=== PATIENT | female | born 1960 | race Caucasian/White ===

== ENCOUNTER 2023-07-02 10:31 | Emergency (ER) | payer BC, SELFPAY ==
--- NOTE | ~2023-07-02 | XR_ITS ---
XR forearm RT 2V DATE: 07/02/2023 11:13 INDICATION: Fall. Wrist deformity. TECHNIQUE: AP and crosstable lateral views COMPARISON: None FINDINGS: There is a comminuted intra-articular fracture of the distal radius with dorsal inclination of the distal radial articular surface. There is a laterally displaced ulnar styloid process fracture. Alignment is preserved at the elbow and wrist joints. IMPRESSION: Comminuted intra-articular fracture of distal radius and ulnar styloid process fracture Reviewed, dictated and finalized at location A. IFIED EXECUTIVE CHEF IMPRESSION: Comminuted intra-articular fracture of distal radius and ulnar styl oid process fracture
[2023-07-02 11:13] VITALS: BP 119/75; PULSE 77; RESP 16; TEMP 36.4; O2SAT 100
--- NOTE | 2023-07-02 11:37 | ED.GENADULT ---
HPI - General Adult General Chief complaint: Extremity Injury, Upper Stated complaint: Fall Time Seen by Provider: 07/02/23 11:37 Source: patient, RN notes reviewed and old records reviewed Mode of arrival: ambulatory Limitations: no limitations History of Present Illness HPI narrative: 63-year-old female presents to the [facility] with complaints of a fall. Has right wrist pain. Patient states that she was walking and slipped on 1 step landing on her right wrist. Swelling and mild bruising noted. Patient does move all 5 fingers with sensation intact in capillary refill under 2 seconds. Onset (ago): hour(s) Related Data Home Medications Medication Instructions Recorded Confirmed apixaban 5 mg tablet (Eliquis) mg 07/02/23 blood sugar diagnostic (Contour 07/02/23 07/02/23 Next Test Strips) budesonide-formoterol HFA 160 inhalation 07/02/23 mcg-4.5 mcg/actuation aerosol inhaler (Symbicort) diltiazem HCl 360 mg capsule,24 mg PO 07/02/23 hr,extended release furosemide 20 mg tablet mg 07/02/23 glucagon 3 mg/actuation nasal mg intranasal 07/02/23 spray (Baqsimi) insulin aspart U-100 100 unit/mL 07/02/23 subcutaneous solution montelukast 10 mg tablet mg 07/02/23 ondansetron 4 mg disintegrating mg 07/02/23 tablet rosuvastatin 10 mg tablet mg 07/02/23 Allergies Allergy/AdvReac Type Severity Reaction Status Date / Time No Known Allergies Allergy Verified 07/02/23 11:15 Review of Systems Review of Systems: All systems reviewed & are unremarkable except as noted in HPI and below Constitutional: Constitutional: Reports no additional constitutional complaints Eyes: Eyes: Reports no additional eye complaints ENT: Reports system reviewed and no additional complaints, except as documented Cardiovascular: Cardiovascular: Reports no additional cardiovascular complaints, Denies chest pain and Denies dyspnea Respiratory: Respiratory: Reports no additional respiratory complaints, Denies chest congestion, Denies cough and Denies dyspnea Gastrointestinal: Gastrointestinal: Reports no additional gastrointestinal complaints, Denies abdominal pain, Denies nausea and Denies vomiting Musculoskeletal: Musculoskeletal: Reports as per HPI, Reports arthralgias, Reports joint swelling and Reports limited range of motion Integumentary/Breasts: Skin/Breast: Reports system reviewed and no additional complaints, except as docu Neurologic: Reports system reviewed and no additional complaints, except as documented Psychiatric: Psychiatric: Reports no additional psychiatric complaints Allergic/Immunologic: Allergic/Immunologic: Reports no additional allergic/immunologic complaints PMFSH Comments At the time of my signature, I reviewed and agree with the nursing past medical, surgical, social, and family history. There is no relevant family history pertinent to the patient complaint. Exam Const: General: cooperative, healthy appearing, comfortable, no acute distress, well developed, alert and well nourished Nutritional Appearance: well nourished Orientation/consciousness: patient oriented x3 Limitations: no limitations HENMT: Head: normal to inspection Ears: hearing grossly normal bilaterally and external ears normal Face/Nose/Sinus: Normal external nose present, Normal nares present, Normal nasal mucous membranes and turbinates present, normal facial exam and face symmetric Face and sinus: normal facial exam and face symmetric Eyes: General: appearance normal, both eyes and all related structures Alignment and Position: alignment normal Periorbital: periorbital findings normal Pupils: Equal, round and reactive pupils present EOM: EOMs intact bilaterally Neck: Neck: normal visual inspection, full ROM, no lymphadenopathy and no meningeal signs Chest: Chest palpation & inspection: normal inspection of the chest Resp: Effort & Inspection: normal respiratory effort and able to speak in complete sentences
== END 2023-07-02 12:23 | disposition home or self-care (01) ==
PROVIDERS: Emergency Provider Nurse Practitioner
DX: S52.501A Unspecified fracture of the lower end of right radius, initial encounter for closed fracture (principal); S52.611A Displaced fracture of right ulna styloid process, initial encounter for closed fracture; W10.9XXA Fall (on) (from) unspecified stairs and steps, initial encounter; I48.91 Unspecified atrial fibrillation; J45.909 Unspecified asthma, uncomplicated; M81.0 Age-related osteoporosis without current pathological fracture; E11.9 Type 2 diabetes mellitus without complications
CPT/HCPCS: 29125; 73090; 99204; A4565; G0463

== ENCOUNTER 2023-07-14 01:27 | Day surgery (SDC) | payer BC, SELFPAY ==
[2023-07-08 14:42] VITALS: BMI 30.2
--- NOTE | 2023-07-08 14:54 | PC.NURSE ---
Addendum entered by Sarah Peralta RN 07/08/23 15:23: PT TO FOLLOW INSTRUCTIONS FROM DR. CARMONA REGARDING ELIQUIS. Original Note: Report to the Outpatient Waiting Room, entrance under the green pavilion located off [facility], at time 1:00 on date 07/14/23. Planned Procedure Time: 3:00. Time changes happen often and if your time is changed the preop area will call you the afternoon before. - You and your visitor will be asked to self-screen and do not enter if you have any COVID symptoms. - A mask is optional within the hospital at this time. Patients may have clear liquids (water, carbonated beverages, clear teas, apple juice) until 3 hours prior to surgery (12:00) with a maximum of 20 ounces. - No food from midnight until time of surgery Take the following medications with a SIP of water the morning of surgery: DILTIAZEM, PAIN PILL IF NEEDED, INHALER IF NEEDED DO NOT STOP ANY OF YOUR OTHER PRESCRIPTION MEDICATIONS PRIOR TO SURGERY ?EXCEPT THE FOLLOWING Medications to discontinue per physician: VITAMINS/SUPPLEMENTS Date to take last dose: 07/10/23 Please no make-up, nail barbadian, hairspray, perfume, deodorant, or body powder the day of surgery. No jewelry (including any body piercings) or valuables the day of surgery, leave them at home. Please take a shower or bath the night before, or the morning of, surgery with an antibacterial soap. Wear comfortable, loose fitting clothing. - Jewelry must be removed prior to entering the operating room. Rings and piercings that are not removed may be cut off. - The hospital will not accept responsibility for valuables. - Please leave all valuables, including medications, at home the day of surgery. If you are going home after surgery, a licensed spike driver must drive you home. - NO public transportation without another adult if you receive anesthesia. - We recommend that an adult stay with you for 24 hours following discharge. - We also recommend that you do not drive, make important decision, drink alcoholic beverages, or take any drugs that were not prescribed by your health care provider for at least 24 hours after your discharge time. Follow any additional instructions given to you from your surgeon. If you or anyone in your household have experienced Covid symptoms in the past week, please notify your surgeon or the nurse liaison at the phone number below for possible testing. Telephone instructions given to МАРЯИ MADRID and asked if any additional questions and then verbalized understanding. Patient advised to call surgeon office or pre surgery nurse liaison [phone] if any additional questions.
--- NOTE | ~2023-07-14 | XR_ITS ---
EXAMINATION: XR surgery orthopedic DATE: 07/14/2023 16:56 INDICATION: Distal radius fracture. TECHNIQUE: 4 intraoperative spot fluoroscopic views of right wrist were obtained. I was not present. Fluoroscopy exposure time was 8 minutes 7 seconds. COMPARISON: Right wrist radiographs 07/07/2023 FINDINGS: There is a comminuted fracture of distal radius. The main distal fracture fragment demonstr ates impaction and dorsal angulation. There is 7 degrees dorsal tilt of the distal articular surface. Internal fixation with is seen with volar plate and screws. There is an avulsion fracture of the uln ar styloid. IMPRESSION: 1. Comminuted fracture of distal radius with improvement in alignment status post open reduction inte rnal fixation. 2. Avulsion fracture of the ulnar styloid. Reviewed, dictated and finalized at location E. NING LEAD IMPRESSION: 1. Comminuted fracture of distal radius with improvement in alignment status po st open reduction internal fixation. 2. Avulsion fracture of the ulnar styloid.
--- NOTE | 2023-07-14 13:21 | ECG_ITS ---
Measurements Intervals [place] Rate: 96 P: IN: 0 QRS: 38 QRSD: 84 T: 18 QT: 348 QTc: 440 Interpretive Statements ATRIAL FIBRILLATION ABNORMAL ECG NO PREVIOUS ECG AVAILABLE FOR COMPARISON Electronically Signed On 07-14-2023 14:02:15 REFURBISH TECHNICIAN by Yossi Palomo D.O.
[2023-07-14] MEDS: LACTATED RINGERS 1,000 ML 30 ML IV CONT ×2 (13:30→17:21)
--- NOTE | 2023-07-14 13:45 | WPDANESEPPF ---
Anes - Initial Pre Proc Eval Procedure: Operation Date: 07/14/23 15:00 Proposed Procedures p Open Reduction Internal Fixation Right Wrist Fracture - Dorian Freed MD Date/Time: 07/14/23 13:45 Surgeon: Dorian Freed MD Pre Op Diagnosis: right distal radius fracture Patient Data Age: 63 Gender: F Height: 1.6 m Weight: 77.56 kg Allergies Allergy/AdvReac Type Severity Reaction Status Date / Time No Known Allergies Allergy Verified 07/14/23 13:09 Home Medications Medication Instructions Recorded Confirmed Type blood sugar diagnostic (Contour 07/02/23 07/07/23 History Next Test Strips) budesonide-formoterol HFA 160 1 inh inhalation PRN PRN ASTHMA 07/02/23 07/08/23 History mcg-4.5 mcg/actuation aerosol inhaler (Symbicort) diltiazem HCl 360 mg capsule,24 360 mg PO DAILY 07/02/23 07/08/23 History hr,extended release furosemide 20 mg tablet 20 mg PO DAILY 07/02/23 07/08/23 History glucagon 3 mg/actuation nasal 3 mg intranasal PRN PRN 07/02/23 07/08/23 History spray (Baqsimi) Hypoglycemia insulin aspart U-100 100 unit/mL See Rx Instructions .Route .COMPLEX 07/02/23 07/08/23 History subcutaneous solution (Novolog U-100 Insulin aspart) montelukast 10 mg tablet 10 mg PO DAILY 07/02/23 07/08/23 History ondansetron 4 mg disintegrating 4 mg PO Q6H PRN Nausea 07/02/23 07/08/23 History tablet rosuvastatin 10 mg tablet 10 mg PO DAILY 07/02/23 07/08/23 History apixaban 5 mg tablet (Eliquis) 5 mg PO BID 07/07/23 07/08/23 History ascorbic acid (vitamin C) 500 mg 500 mg PO DAILY 07/08/23 07/08/23 History tablet (Vitamin C) cholecalciferol (vitamin D3) 125 125 mcg PO DAILY 07/08/23 07/08/23 History mcg (5,000 unit) tablet (Vitamin D3) hydrocodone 5 mg-acetaminophen 325 1 tablet PO Q8H PRN pain #20 tabs 07/08/23 Rx mg tablet Laboratory Tests 07/14/23 13:36 Sodium Pending Potassium Pending Chloride Pending Carbon Dioxide Pending Anion Gap Pending BUN Pending Creatinine Pending Estim Creat Clear Calc Pending Estimated GFR Pending Glucose Pending Calcium Pending Patient hx anesthesia problems: none Family hx anesthesia problems: none Results Review: All pre-operative results and documents have been reviewed as part of the pre-operative evaluation. [facility] Surgical History Surgical History History of removal of ovarian cyst 1998 History of surgery on left wrist ORIF ~2017 Social History Social History Smoking status: Never smoker Alcohol intake: never Substance use: never Substance use type: does not use Living arrangements: with family Spiritual care concerns: No Anes - Eval Final PreProcedure Day of Procedure 07/14/23 13:45 Patient weight: obese Heart: irregular rhythm Lungs: clear to auscultation Airway: Mallampati scale class II Neurological: alert and oriented Last oral intake: >/= 8 hours ASA classification: III Emergent: no Anesthetic plan: proceed Anesthesia type and monitoring: general LMA and standard monitoring Results Review: All pre-operative results and documents have been reviewed as part of the pre-operative evaluation. Informed Consent: The patient's anesthetic plan and its attendant risks and benefits were discussed with the patient/family/POA. Questions were solicited and answers provided to the satisfaction of the patient/family/POA.
[2023-07-14 13:55] LABS: Anion Gap 9 mmol/L (8-16); Blood Urea Nitrogen 18 mg/dL (7-17); Calcium 9.6 mg/dL (8.4-10.2); Carbon Dioxide 24 mmol/L (22-30); Chloride 106 mmol/L (98-107); Estimated CRCL calculation 45 ml/min; Estimated Glomerular Filt Rate 50; Glucose 174 mg/dL (65-110); Potassium 3.9 mmol/L (3.4-5.0); Sodium 139 mmol/L (137-145)
[2023-07-14] MEDS: CELECOXIB 200 MG CAPSULE PO (13:55)
[2023-07-14] MEDS: ACETAMINOPHEN 500 MG TABLET 1000 MG PO (13:55)
[2023-07-14 14:01] VITALS: BP 156/85; PULSE 113; RESP 16; TEMP 36.6; O2SAT 98
--- NOTE | 2023-07-14 15:07 | WPDHPUPDATE1 ---
History and Physical Update Update Date/Time: 07/14/23 15:07 History and Physical has been reviewed, including an updated exam of the patient. There are NO changes in the patient's condition. Risks, benefits, and alternatives have been discussed and questions answered. Patient agrees to proceed with procedure.
[2023-07-14] MEDS: ceFAZolin 2 GM/D5W 50 ML 2 GM/50 ML BAG IVPB (15:19)
[2023-07-14] MEDS: BUPivacaine HCL 0.5% 10 ML AMP INFILTRATE (15:48)
[2023-07-14 17:21] VITALS: BP 124/77; PULSE 93; RESP 18; TEMP 36.2; O2SAT 100
--- NOTE | 2023-07-14 17:26 | W.PM.PROC2 ---
Procedure Note - Detailed Date of Procedure 07/14/23 Pre-op Diagnosis right distal radius fracture Post-op Diagnosis Same Procedure Performed ORIF RIGHT DISTAL RADIUS FRACTURE Surgeon Dorian Freed MD Anesthesia General Description of Procedure THE RIGHT UPPER EXTREMITY WAS PREPPED AND DRAPED IN THE STERILE FASHION. A STANDARD HENRYS APPROACH WAS USED TO THE VOLAR WRIST. DISSECTION THROUGH THE SKIN AND SUBCUTANEOUS TISSUE WAS PREFORMED. THE FCR TENDON WAS IDENTIFIED. THE RADIAL ARTERY WAS IDENTIFIED AND RETRACTED. THE THE FLEXOR POLLICIS AND THE COMMON FLEXOR TENDONS WERE IDENTIFIED AND RETRACTED. THE PRONATOR QUADRATUS WAS IDENTIFIED AND INCISED EXPOSING THE FRACTURE. IT WAS HIGHLY COMMINUTED. A TRIAL REDUCTION WAS PREFORMED AND FIXED WITH A K WIRE. NEXT A BIOMET DISTAL RADIUS LOCKING PLATE WAS PLACED BRIDGING THE FRACTURE FRAGMENTS. SCREWS WERE PLACED DISTALLY AND PROXIMALLY. THE DISTAL SCREWS WERE IMAGED AND FOUND TO BE EXTRA ARTICULAR. C ARM IMAGES WERE PREFORMED AND HARDWARE AND FRACTURE FRAGMENTS WERE IN GOOD POSITION. THE TOURNIQUET WAS DEFLATED AND THE BLEEDERS WERE CAUTERIZED. THE FASCIA AND SUB CUTANEOUS LAYERS WERE APPROXIMATED WITH 3-0 VICRYL. THE SKIN WAS APPROXIMATED WITH JIA. STERILE DRESSING AND SPLINT WAS APPLIED. PATIENT WAS EXTUBATED. Estimated Blood Loss 20 Complications No immediate complications Condition Stable Disposition PACU
[2023-07-14 17:29] LABS: Glucose Point of Care 85 mg/dl (65-105)
[2023-07-14 17:35] VITALS: BP 129/91; PULSE 93; RESP 17; O2SAT 100
[2023-07-14] MEDS: fentaNYL CITRATE INJ (*CRX) 100 MCG/2 ML VIAL 25 MCG IV PUSH ×6 (17:44→18:27)
[2023-07-14 17:50] VITALS: BP 136/93; PULSE 87; RESP 17; O2SAT 96
[2023-07-14 18:15] VITALS: BP 152/92; PULSE 94; RESP 16
[2023-07-14] MEDS: oxyCODONE HCL (*CRX) 5 MG TAB IR PO (18:41)
[2023-07-14 18:45] VITALS: BP 133/80; PULSE 87; RESP 16
== END 2023-07-14 19:07 | disposition home or self-care (01) ==
PROVIDERS: Anesthesiology; Visit Provider Orthopaedic Surgery
PROC: (CPT 25575; principal; 2023-07-14 15:00)
DX: S52.571A Other intraarticular fracture of lower end of right radius, initial encounter for closed fracture (principal); W19.XXXA Unspecified fall, initial encounter; R94.31 Abnormal electrocardiogram [ECG] [EKG]; E66.9 Obesity, unspecified; Z68.30 Body mass index [BMI] 30.0-30.9, adult; Z79.891 Long term (current) use of opiate analgesic; Z79.4 Long term (current) use of insulin; Z79.01 Long term (current) use of anticoagulants; Z79.51 Long term (current) use of inhaled steroids
CPT/HCPCS: 25608; 36415; 80048; 82948; 93005; 99199; A9270; C1713; J0690; J1100; J1170; J2250; J2405; J2704; J3010; J7120

== ENCOUNTER 2024-09-25 10:37 | Outpatient (CLI) | payer MEDICARE, SELFPAY ==
--- OUTSIDE RECORDS SUMMARY | 2024-09-25 12:01 | XMS_ITS | Encounter Summary ---
Author Organization [facility] Healthcare Address [address] [place] [id number] Care Team Providers Care Master Tax Advisor Name Role Phone Jaime Forte MD Primary Care Provider + Reason for Visit * Reason Onset Date Comments GI Preprocedure 09/24/2024 Encounter Details Date Type Department Care Team (Late st Contact Info) Description 09/24/2024 Telephone [facility] Specialty Services [address] [place] [phone] Anya Wang RN GI Preprocedure Social History Tobacco Use Types Packs/Day Years Used Date Smoking Tobacco: Never Smokeless Tobacco: Never AUDIT-C Answer Date Recorded Q1: How often do you have a drink containing alcohol? Never 07/13/2024 Q2: How many drinks containi ng alcohol do you have on a typical day when you are drinking? Patient does not drink Q3: How often do you have si x or more drinks on one occasion? Never 07/13/2024 Personal Safety Answer Date Recorded Have you ever been in or are you currently in a harmful physical or emotional relationship or is someone making you feel afraid or unsafe? 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 Left voicemail asking patient to return call GENERAL INSTRUCTIONS [x] Bring medication list, photo ID, and insurance card [] Review general procedure process. The Endo nurse will review your medical history, place an IV, and you will meet anesthesia team. We will monitor you after the procedure until it is safe for you to go home. Please plan to spend at least four hours here for the entire process. [x] Confirm patient has a truck driver flatbed (daughter). Since you will be receiving sedation, you will not be able to drive or leave without someone who can monitor you. You must have a ride arranged to and from the hospital with a responsible adult. If you will be going home by way of a transport service, Uber, Lyft, or cab: a responsible adult MUST be with you. The nurse will call to confirm your transportation and if they are unable to confirm your procedure will be cancelled. [x] Instructed to remove all jewelry and piercing before procedure. Notes/Issues: call: Daniel [phone] if unable to come to appt / and or need to reschedule. RN informed pt instructions for holding Eliquis in MyChart on 08/16. Pt has no questions at this time. documented in this encounter Plan of Treatment Upcoming Encounters Date Type Department Care Team (Latest Contact Info) Description 10/01/2024 8:00 AM CDT Hospital Encounter [facility] [address] [facility] [address] [place] [address] Keira Joyner, DO [address] [place] [address] 10/01/2024 8:00 AM CDT - 10/01/2024 8:30 AM CDT Surgery [facility] [address] [address] Keira Joyner, DO [address] [place] [address] ESOPHAGOGASTRODUODENOSCOPY Scheduled Procedures Name Priority Associated Diagnoses Date/Ti me ESOPHAGOGASTRODUODENOSCOPY Esophagitis Intestinal metaplasia of antrum of stomach without dysplasia 10/01/2024 8:00 AM CDT documented as of this encounter Visit Diagnoses Not on filedocumented in this encounter Care Teams Master Tax Advisor Relationship Specialty Start Date End Date Jaime Forte MD [address] [facility] [address] [place] [id number] PCP - General Internal Medicine 09/27/23 09/24/24 documented as of this encounter
--- OUTSIDE RECORDS SUMMARY | 2024-09-25 12:01 | XMS_ITS | Clinical Summary ---
Author Organization [facility] Address [address] [place] [address] Care Team Providers Care Kitchenhand Name Role Phone Fran Tolentino MD Primary Care Provider Unav ailable Social History Tobacco Use Types Packs/Day Years Used Date Smoking Tobacco: Never Assessed Comments Unknown Sex and Gender Information Value Date Recorded Sex Assigned at Not on file Legal Sex Female 11:22 AM CDT Gender Identity Not on file Sexual Orientation Not on file Plan of Treatment Health Maintenance Due Date Last Done Comments Colorectal Cancer Screening Colonoscopy (10 Years) 1959 Hepatitis C 1977 DTaP, Tdap and Td Vaccines ( 1 - Tdap) 1978 Mammogram Screening 1999 Zoster Vaccines (1 of 2) 2009 COVID-19 Vaccine (2023-2 5 season) 2024 Influenza Adult (#1) 2024 Dexa Scan (General) 2024 Pneumococcal Vaccine: 65+ Ye ars (1 of 1 - PCV) 2024 RSV Immunization or 60+ Years (1 - 1-dose 75+ series) 2034 Meningococcal B Vaccine Aged Out No l onger eligible based on patient's age to complete this topic Meningococcal Vaccine Aged Out No rosa jayjay eligible based on patient's age to complete this topic Pneumococcal Vaccine: Pediat rics (0 to 5 Years) and At-Risk Patients (6 to 64 Years) Aged Out No longer eligible b ased on patient's age to complete this topic RSV Immunizations Under 20 Months Aged Out No longer eligible based on patient's age to complete this topic Insurance [place]UE [place] BLUE [facility] Care Teams Kitchenhand Relationship Specialty Start Date End Date Fran Tolentino MD PCP - General FAMILY PRACTICE 12/25/21
--- OUTSIDE RECORDS SUMMARY | 2024-09-25 12:01 | XMS_ITS | Referral Summary ---
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 [address] [place] [phone] Shelby Lester, MINDY 08/15/2024 Telephone [facility] [address] [facility] 12th [place] [address] [place] [phone] Daniel Swete RN GI Pre Procedure Assessment 07/23/2024 Telephone [facility] [address] [facility] [address] [place] [phone] Shelby Lester, RN 07/13/2024 9:16 AM UTILIZATION COORDINATOR Anesthesia Event [facility] [place] [address] [address] Lesa Blair MD Ruamwijitphon g, Witoon, CRNA 07/13/2024 9:30 AM UTILIZATION COORDINATOR - 07/13/2024 10:30 AM UTILIZATION COORDINATOR Surgery [facility] [address] [address] Keira Joyner, ESOPHAGOGASTRODUODENOSCOPY BIOPSY 07/13/2024 8:29 AM UTILIZATION COORDINATOR - 07/13/2024 11:27 AM UTILIZATION COORDINATOR Hospital Encounter [facility] [address] [address] Keira Joyner DO Anemia, unspecified type Discharge Disposition: Discharge to home or self care 07/10/2024 Telephone [facility] Specialty Services [address] [place] [phone] Anya Wang, MINDY GI Preprocedure 07/06/2024 Telephone [facility] Specialty Services [address] [place] [phone] Anya Wang, MINDY GI Preprocedure 06/29/2024 Telephone [facility] Specialty Services [address] [place] [phone] Elizabeth Rosales RN 06/29/2024 [facility] [address] [place] [phone] Cl Aguiar MD 06/29/2024 [facility] [address] [place] [phone] Cl Aguiar MD from Last 3 Months Allergies No known active allergies Medications montelukast (SINGULAIR) 10 mg tablet Take 1 tablet (10 mg total) by mouth daily 0 Active cholecalciferol (VITAMIN D-3) 5,000 unit capsule Take 1 capsule (5,000 Units total) by mouth daily Active ascorbic acid (VITAMIN C) 500 mg tablet,chewable Take 1 tablet/chew tab (500 mg total) by mouth every other day Active blood glucose diagnostic (Contour Next Test Strips) strip TEST BLOOD SUGAR FOUR TIMES DAILY DIRECTED 400 strip 3 3 Active ketone blood test strip Test urine ketones as directed 50 strip 2 4 Active insulin syringe-needle U-100 0.5 mL 31 gauge x 5/16 syringe Use to inject 1-4 times daily as directed. 100 each 4 4 Active diltiazem (TIAZAC) 360 mg 24 hr capsule Take 1 capsule (360 mg total) by mouth daily 90 capsule 3 4 025 Active Eliquis 5 mg tablet Take 1 tablet (5 mg total) by mouth 2 (two) times a day 180 tablet 3 4 025 Active furosemide (LASIX) 20 mg tablet Take 1 tablet (20 mg total) by mouth daily 90 tablet 3 4 025 Active rosuvastatin (CRESTOR) 10 mg tablet Take 1 tablet (10 mg total) by mouth daily 90 tablet 3 4 025 Active ondansetron ODT (ZOFRAN-ODT) 4 mg disintegrating tablet DISSOLVE 1 TABLET(4 MG) ON THE TONGUE EVERY 8 HOURS NEEDED FOR NAUSEA OR VOMITING 20 tablet 3 4 Active glucagon (Baqsimi) 3 mg/actuation spray,non-aerosol Administer 1 spray (3 mg total) into one nostril as needed (for use in case of emergency for hypoglycemia) 1 each 2 4 Active albuterol HFA (PROVENTIL HFA,VENTOLIN HFA,PROAIR HFA) 90 mcg/actuation inhaler Inhale 2 puffs every 6 (six) hours as needed for wheezing Active cyclobenzaprine (FLEXERIL) 5 mg tablet Take 1 tablet (5 mg total) by mouth 3 (three) times a day as needed for muscle spasms 4 Active acetone, urine, test strip TEST DIRECTED [address] (PROTONIX) 40 mg EC tablet Take 1 tablet (40 mg total) by mouth 2 (two) times a day 60 tablet 2 5 025 Active insulin aspart (NovoLOG) 100 unit/mL vial for injectionIndicatio ns:Type 1 diabetes mellitus with hyperglycemia (HCC) Inject 60 Units under the skin daily 60 mL 3 5 Active Hospital, Clinic, or Other Facility Administered Medication Ordered Dose Route Frequency Start Date End Date Status perflutren protein-a (OPTISON) 3 mL in sodium chloride 0.9% 8 mL syringe 1 - 8 mL IV Once in imaging 11/09/2022 Active Active Problems Problem Noted Date Diagnosed Date Esophagitis 08/15/2024 Intestinal metaplasia of ant rum of stomach without dysplasia 08/15/2024 Anemia 06/29/2024 S/P wrist surgery 07/16/2023 Assessment & Plan (07/25/2023 4:02 PM UTILIZATION COORDINATOR): S/p R wrist fixation 07/14 (fracture from mechanical fall) - Ortho follow up (in [place], [place]) scheduled 07/28/23. Remains NWB RUE - PT/OT consulted - APAP, oxy prn. Miralax prn Atrial fibrillation with rapid ventricular respo nse 05/11/2022 Assessment & Plan (07/26/2023 1:02 PM UTILIZATION COORDINATOR): SVT to 190s likely from not tolerating PO and not taking dilt vs dehydration from DKA on admission. - Last ECHO 11/2022 with EF 61%. Follows with Dr. Trish Chiang as outpatient - Gen cards consult --- pt s/p dilt gtt, then re-started 07/23. S/p amio bolus, then gtt since 07/21 --- c/w apixaban --- failed cardioversion attempt (shocked x4) - EP consult 07/25 --- transition off amio gtt to amio 400 tid. --- DCCV on 07/26 unsuccessful. --- Transition to PO diltiazem 360 XR daily Nonrheumatic mitral valve regurgitation 05/11/20 22 Nonrheumatic tricuspid valve regurgitation 05/11 Type 1 diabetes mellitus with hyperglycemia 08/0 10/2021 Assessment & Plan (09/27/2023 9:43 AM CDT): A1C 6.8% Will lower AIT to 2h from 3h & loosen IR from [id number] to 1:6 from 1:5, will review in 1 week, may need further ICR adjustment Discussed trying to start bolus 5-10 min prior to intake given occasional post-hypoglycemic events Labs 06/2024 Will schedule eye exam Assessment & Plan (06/23/2023 10:25 AM UTILIZATION COORDINATOR): A1C 8.2% Has back up basal pen, 18-20 units for failure Continue CSII/CGM Needs eye exam Labs today, including C-peptide since will transition to [employer] 07/2024 Assessment & Plan (02/11/2022 2:54 PM CDT): A1C 8.6% today Is on CSII and CGM Checks glucose 8x daily and requires 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 CGM monitoring and how glucose changes postprandially To meet with NEPTALI PenaNCE later today Essential hypertension 06/12/2020 Overview (06/12/2020): Same meds Assessment & Plan (07/25/2023 12:47 PM UTILIZATION COORDINATOR): BP as low as 80/40s but likely from dehydration d/t DKA vs AFRVR and now resolved. BP been stable - c/w home lasix 20 Mild intermittent asthma 06/12/2020 Overview (06/12/2020): Per primary Resolved Problems Problem Noted Date Diagnosed Date Resolved Date Neck pain 07/26/2023 09/27/2023 Assessment & Plan (07/27/2023 9:40 AM UTILIZATION COORDINATOR): R neck pain following DCCV on 07/26. PE with limited ROM from pain, but no edema, erythema, hematoma, bruits. - APAP, oxycodone PRN and lidoderm for pain - EP notified - Likely MSK. 07/26 neck Xray without acute etiology - 07/27: pain improved. Able to move neck Diabetic ketoacidosis withou t coma associated with type 2 diabetes mellitus 07/25/2023 09/27/2023 DKA, type 1, not at goal 07/18/2023 Abnormal urinalysis 07/17/2023 09/27/19 24 Assessment & Plan (07/18/2023 10:27 AM UTILIZATION COORDINATOR): UA obtained d/t DKA with 2+ LE, >50 WBC, 1-5 eps. No complaints - started on CTX, stopped given lack of symptoms and other explanations for DKA (pump malfunction vs stress from recent surgery) - Urine Culture with clinically insignificant growth (final), no need for further intervention Diabetic ketoacidosis withou t coma associated with type 1 diabetes mellitus 07/16/2023 09/27/2023 Assessment & Plan (07/26/2023 1:03 PM UTILIZATION COORDINATOR): P/w DKA: BG 580, AG 22, bicarb 19, pH 7.33, WBC 13, ketones 3.2, CXR neg. Possibly 2/2 stress response from wrist surgery 07/14 vs pump failure (not turning on despite new battery). infectious workup with WBC 13, CXR clear, UA with clinically insignificant growth - s/p SQUID, gap remains closed - DM consulted and saw patient. plan for DM educator referral outpatient. - Endo consulting, managing --- while on amio gtt, has higher basal rate given carrier fluid is D5w. Alert Endo if goes of amio gtt-> notified on 07/25 --- Changed to automode by endo on 07/26 Type 1 diabetes mellitus without complication 06/12/20 20 06/23/2023 Overview (06/12/2020): Contnue CSII and CGM Insulin to carb ratios adjusted. Upload one week Immunizations Immunization Administration Dates Next Due Influenza, Trivalent, IM (MDV) 04/11/2012 Pneumococcal Polysaccharide PPV23 04/11/2012 Social History Tobacco Use Types Packs/Day Years Used Date Smoking Tobacco: Never Smokeless Tobacco: Never Tobacco Cessation:Counseling Given: Not Answered AUDIT-C Answer Date Recorded Q1: How often [...] on file Legal Sex Female 3:31 AM UTILIZATION COORDINATOR Gender Identity Not on file Sexual Orientation Not on file Last Filed Vital Signs Vital Sign Reading Time Taken Comments Blood Pressure 132/76 08/21/2024 10:48 AM UTILIZATION COORDINATOR Pulse 74 08/21/2024 10:48 AM UTILIZATION COORDINATOR Temperature 36.2 C (97.2 F) 07/13/2024 10:26 AM UTILIZATION COORDINATOR Respiratory Rate 18 07/13/2024 10:46 AM UTILIZATION COORDINATOR Oxygen Saturation 98% 08/21/2024 10:48 AM UTILIZATION COORDINATOR Inhaled Oxygen Concentration - - Weight 82.6 kg (182 lb) 08/21/2024 10:48 AM UTILIZATION COORDINATOR Height 160 cm (5' 3 ) 08/21/2024 10:48 AM UTILIZATION COORDINATOR Body Mass Index 32.24 08/21/2024 10:48 AM UTILIZATION COORDINATOR Plan of Treatment Upcoming Encounters Date Type Department Care Team (Latest Contact Info) Description 10/01/2024 8:00 AM CDT Hospital Encounter [facility] [address] [address] Keira Joyner, DO [address] [address] 10/01/2024 8:00 AM CDT - 10/01/2024 8:30 AM CDT Surgery [facility] [address] [address] Keira Joyner DO [address] [address] ESOPHAGOGASTRODUODENOSCOPY Scheduled Procedures Name Priority Associated Diagnoses Date/Ti me ESOPHAGOGASTRODUODENOSCOPY Esophagitis Intestinal metaplasia of antrum of stomach without dysplasia 10/01/2024 8:00 AM CDT Procedures Procedure Name Priority Date/Time Associated Diagnosis Comments POCT HEMOGLOBIN A1C Routine 08/21/2024 10:59 AM UTILIZATION COORDINATOR Type 1 diabetes mellitus with hyperglycemia (HCC) COLONOSCOPY 07/13/2024 9:47 AM UTILIZATION COORDINATOR SURGICAL PATHOLOGY Routine 07/13/2024 9:27 AM UTILIZATION COORDINATOR Anemia, unspecified type EGD 07/13/2024 9:18 AM UTILIZATION COORDINATOR ENDO ADD ON COLON INJECTION SUBMUCOSAL Open Access 07/13/2024 9:18 AM UTILIZATION COORDINATOR Anemia, unspecified type Special Needs Careful with movements d/t pt has muscle strain in chest area COLON REMOVAL SNARE Open Access 07/13/2024 9:18 AM UTILIZATION COORDINATOR Anemia, unspecified type Special Needs Careful with movements d/t pt has muscle strain in chest area ESOPHAGOGASTRODUODENOSCOPY BIOPSY Open Access 07/13/2024 9:18 AM UTILIZATION COORDINATOR Anemia, unspecified type Special Needs Careful with movements d/t pt has muscle strain in chest area POCT GLUCOSE DEVICE Routine 07/13/2024 8:59 AM UTILIZATION COORDINATOR COMPREHENSIVE METABOLIC PANEL Routine 8:09 AM UTILIZATION COORDINATOR LIPID PANEL Routine 06/23/2024 8:09 AM UTILIZATION COORDINATOR TSH Routine 06/23/2024 8:09 AM UTILIZATION COORDINATOR ALBUMIN CREATININE RATIO, URINE Routine 06/23/2023 10:39 AM UTILIZATION COORDINATOR Type 1 diabetes mellitus with hyperglycemia (HCC) from Last 3 Months or Most Recently Relevant to Health Maintenance Results * POCT hemoglobin A1c (08/21/2024 10:59 AM UTILIZATION COORDINATOR) Hemoglobin A1C, POC 8.0 4.0 - 5.6 % Blood 08/21/2024 10:5 9 AM UTILIZATION COORDINATOR us Cl Aguiar MD POINT OF CARE TEST ORDER KEVIN Final Result * Colonoscopy (07/13/2024 9:47 AM UTILIZATION COORDINATOR) Anatomical Region Laterality Modality Other Narrative Procedure Note Keira Joyner, DO - 07/13/2024 9:47 AM CST [facility] Patient Name: Elyse Lucero Procedure Date: 07/13/2024 9:47 AM Date of : 1960 Admit Type: Outpatient Age: 64 Gender: Female Attending MD: Keira Joyner M.D. Room: [facility] ENDOSCOPY ROOM 4 Note Status: Finalized Procedure: Colonoscopy Indications: Iron deficiency anemia. EGD today with Landon erosions, erosive gastropathy, gastric ulcer(likely source of anemia) Referring MD: Cl Aguiar M.D. Providers: Keira Joyner M.D., Phani Castro M.D. Medicines: Monitored Anesthesia Care Complications: No immediate complications. Estimated Blood Loss: Estimated blood loss was minimal. Procedure: Pre-Anesthesia Assessment: - The risks and benefits of the procedure and the sedation options and risks were discussed with the patient. All questions were answered and informed consent was obtained. - Immediately prior to administration ofmedications, the patient was re-assessed for adequacy to receive sedatives. The benefits, risks and alternatives of theprocedure and sedation were discussed and informed consentwas obtained. All questions were answered. Please referto the signed informed consent document in the medical record. The scope was passed under direct vision.The [id number] endoscope was introduced through the anus and advanced to the terminal ileum. The colonoscopy was somewhat difficult due to atortuous colon. The patient tolerated the procedure well.The quality of the bowel preparation was good. Thequality of the bowel preparation was evaluated using theBBPS (Kasson Bowel Preparation Scale) with scores of:Right Colon = 3, Transverse Colon = 3 and Left Colon = 3 (entire mucosa seen well with no residual staining, small fragments of stool or opaque liquid). Thetotal BBPS score equals 9. The bowel preparation used was GoLYTELY via split dose instruction. Bowel prep was administered using a split dose. Findings: The perianal and digital rectal examinations were normal. A 10 mm polyp was found in the descending colon. The polyp wassessile. Area was successfully injected with 3 mL Eleview for a liftpolypectomy due to position between folds and restricted colonoscope motion. The polyp was removed with a cold snare. Resection and retrieval were complete. The retroflexed view of the distal rectum and anal verge was normaland showed no anal or rectal abnormalities. The terminal ileum appeared normal. Impression: - One 10 mm polyp in the descending colon, removed with a cold snare. - The distal rectum and anal verge are normal on retroflexion view. - The examined portion of the ileum was normal. Recommendation: - Observe patient in recovery. - Continue present medications. - Resume Eliquis on Tuesday. - Await pathology results. - Resume previous diet. - Return to referring physician as previously scheduled. - Repeat colonoscopy in 3 years if pathology shows tubular adenoma. - In the unusual situation that you developabdominal, bleeding or other significant problems in the days following this procedure please call [phone] ask for my nurse, Daniel. After hours and evenings please call [phone] and speak to the GI fellowon call. Please tell the fellow that Dr. Joyner didyour procedure and that you were instructed to have the fellow call me or the physician covering for me to discuss the management of your condition. If youhave an urgent problem, please go to the nearestemergency room and have the ER doctor call my office duringthe day or the GI fellow after hours and weekends to arrange admission or transfer to our facility.Please bring this report with you if you go to theemergency room. Attending Participation: I was present and participated during the entire procedure, including non-conti portions. Electronically signed by Keira Joyner MD Keira Joyner M.D. 07/13/2024 10:24:09 AM . Number of Addenda: 0 Note Initiated On: 07/13/2024 9:47 AM Keira Joyner DO ENDOSCOPY PROCEDURES Final Result * Surgical pathology (07/13/2024 9:27 AM UTILIZATION COORDINATOR) Tissue (Duodenum, Biopsy) 07/13/2024 9:27 AM UTILIZATION COORDINATOR Tissue (Gastric/Stomach biopsy) 07/13/2024 9:39 AM UTILIZATION COORDINATOR Tissue (Polyp(s), colon/colorectal, esophageal, gastric) 07/13/2024 10:13 AM UTILIZATION COORDINATOR Narrative PATHOLOGY [facility] - 07/18/2024 4:25 PM UTILIZATION COORDINATOR EPIC results best viewed via link to PDF [facility] Padmini Merino Laboratory of Surgical Pathology [place] [address] Note to Patients: This report may contain a detailed description of human tissue sent by a health care provider to the laboratory for pathologic evaluation. The content of this report is essential for diagnosis and may provide important critical findings. This information may be unfamiliar to patients to review without a medical professional present. It is advised that the patient review this report in the presence of a health care provider who can answer questions and explain the details. SURGICAL PATHOLOGY REPORT FINAL Patient Name: ELYSE LUCERO Gender: F : 1960 (Age: 64) Address: [address] [place] [phone] Hospital #: [id number] Taken:07/13/2024 Received:07/13/2024 Reported: 07/18/2024 Patient Type: [facility] Service: Gastro Location: Physician(s): MD Jaime Khan M.D. Michael A. Berk, M.D. Diagnosis: A. Duodenum, biopsy - Duodenal mucosa with no histopathologic abnormality - No evidence of celiac disease (no significant intraepithelial lymphocytosis) B. Stomach, biopsy - Antral gland mucosa with mild chronic inactive gastritis with focal intestinal metaplasia (complete type) - Separate fragment of antral mucosa with deep granulation tissue and reactive changes, suggesting chronic partially healing ulcer bed (see comment) - Oxyntic gland mucosa with no histopathologic abnormality - No viral cytopathic changes or infectious microorganisms identified (H&E) - Negative for dysplasia or malignancy - Negative for H. pylori organisms (immunohistochemical stain) C. Descending colon, polyp, biopsy - Hyperplastic polyp b/07/18/2024 16:25 By this signature, I attest that the above diagnosis is based upon my personal examination of the slides(and/or other material indicated in the diagnosis). Riley Bland M.D. Report Electronically Reviewed and Signed Out By Riley Bland M.D. 07/18/2024 16:25:46 Microscopic Description and Comment: Microscopic examination substantiates the above cited diagnosis. Immunohistochemical stain(s) (single antibody procedures with appropriate controls) are performed on block(s) B1 to assess the background stroma/granulation tissue reaction for malignancy. ERG and CD34 immunostains highlight normally spaced reactive vascular endothelial cells within the area of interest. Pancytokeratin immunostain is negative for evidence of infiltrative carcinoma. p53 immunostain highlights wild-type pattern throughout the biopsy. All findings are reassuring for the absence of a malignant tumor or neoplasm, supporting a reactive process. History: The patient is a 64-year-old woman presenting with anemia, unspecified type. Operative procedure: Upper endoscopy with biopsy; colon removal snare with injection submucosal. Specimen(s) Received: A: Duodenum B: Gastric cold biopsy C: Descending colon polyp cold snare Gross Description: Received in three formalin jars labeled with the patient's identifiers. A. Labeled duodenum and consists of multiple casas to casas-brown fragment(s) of soft tissue measuring 1.5 x 0.4 x 0.2 cm in aggregate. Labeled A1. Jar 0. B. Labeled gastric and consists of multiple casas and casas-pink fragment(s) of soft tissue measuring 1.4 x 0.6 x 0.2 cm in aggregate. Labeled B1. Jar 0. C. Labeled descending colon polyp and consists of two casas to casas-white polypoid fragment(s) of soft tissue measuring 0.7 and 1.3 cm each in greatest dimension. Labeled C1. Jar 0. sxst/07/13/2024 14:35 PA(s): Clementina Alexis By this signature, I attest that the above diagnosis is based upon my personal examination of the slides(and/or other material). Addenda/Procedures The performance characteristics of some immunohistochemical stains, fluorescence in-situ hybridization tests and immunophenotyping by flow cytometry cited in this report (if any) were determined by the Surgical Pathology and Flow Cytometry Departments at [facility] as part of an ongoing quality tech program and in compliance with federally mandated regulations drawn from the Clinical Laboratory Improvement Act of 1988 (CLIA '88). Some of these tests rely on the use of analyte specific reagents and are subject to specific labeling requirements by the US Food and Drug Administration. Such diagnostic tests may only be performed in a facility that is certified by the Department of Health and Human Services as a high complexity laboratory under CLIA '88. The FDA has determined that such clearance or approval is not necessary. This test is used for clinical purposes. It should not be regarded as investigational or for research. Nevertheless, federal rules concerning the medical use of analyte specific reagents require that the following disclaimer be attached to the report: This test was developed and its performance characteristics determined by the Surgical Pathology and Flow Cytometry Departments of [facility]. It has not been cleared or approved by the U. S. Food and Drug Administration. IMAGES AND SCANNED DOCUMENTS, IF INCLUDED, ONLY VIEWABLE IN PDF VERSION OF REPORT us Keira Joyner DO LAB PATHOLOGY ORDERABLES F inal Result PATHOLOGY [facility] 3rd Floor [place], [place] [phone] * EGD (07/13/2024 9:18 AM UTILIZATION COORDINATOR) Anatomical Region Laterality Modality Other Narrative Procedure Note Keira Joyner, - 07/13/2024 9:18 AM CST [facility] Patient Name: Elyse Lucero Procedure Date: 07/13/2024 9:18 AM Date of : 1960 Admit Type: Outpatient Age: 64 Gender: Female Attending MD: Keira Joyner M.D. Room: [facility] ENDOSCOPY ROOM 4 Note Status: Finalized Procedure: Upper GI endoscopy Indications: Iron deficiency anemia Referring MD: Cl Aguiar M.D. Providers: Keira Joyner M.D., Phani Castro M.D. Medicines: Monitored Anesthesia Care Complications: No immediate complications. Estimated Blood Loss: Estimated blood loss was minimal. Procedure: Pre-Anesthesia Assessment: - The risks and benefits of the procedure and the sedation options and risks were discussed with the patient. All questions were answered and informed consent was obtained. The benefits, risks, and alternatives to theprocedure and sedation were discussed and informed consentwas obtained. The upper GI endoscopy was accomplished without difficulty. The patient tolerated the procedure well. The scope was passed under direct vision. The [id number] endoscope wasintroduced through the mouth, and advanced to the second partof duodenum. Findings: Esophagogastric landmarks were identified: the Z-line was found at 33 cm, the upper extent of the gastric folds was found at 33 cm, thesite of hiatal narrowing was found at 40 cm from the incisors. LA Grade C (one or more mucosal breaks continuous between tops of 2or more mucosal folds, less than 75% circumference) esophagitis wasfound 31 to 33 cm from the incisors. A large hiatal hernia (Hill Grade III) was present. A few small Landon erosions were found in the distal esophagus andin the cardia. Few non-bleeding cratered gastric ulcers and erosive gastropathy were found in the gastric antrum. The largest lesion was 10 mm in largest dimension. Biopsies were taken with a cold forceps for Helicobacter pylori testing. One clip was placed due to mild oozing of gastriculcer after biopsy. The examined duodenum was normal. Biopsies for histology were takenwith a cold forceps for evaluation of celiac disease. Impression: - LA Grade C esophagitis. - Large hiatal hernia. - A few Landon erosions. - Non-bleeding gastric ulcers and erosivegastropathy, most likely cause of anemia. Biopsied to rule outH. Pylori. One clip placed due to mild oozing ofgastric ulcer after biopsies. - Normal examined duodenum. Biopsied. Recommendation: - Observe patient in recovery. - Continue present medications. - Start pantoprazole 40 mg twice daily. - Resume Eliquis on Tuesday. - No ibuprofen, naproxen, or other non-steroidal anti-inflammatory drugs. - Await pathology results. Treat if positive for H. Pylori with quadruple therapy. - Resume previous diet. - Return to referring physician as previously scheduled. - Repeat EGD in 8 weeks for surveillance of esophagitis and gastric ulcer. - In the unusual situation that you developabdominal, bleeding or other significant problems in the days following this procedure please call [phone] ask for my nurse, Daniel.. After hours and evenings please call [phone] and speak to the GI fellowon call. Please tell the fellow that Dr. Joyner didyour procedure and that you were instructed to have the fellow call me or the physician covering for me to discuss the management of your condition. If youhave an urgent problem, please go to the nearestemergency room and have the ER doctor call my office duringthe day or the GI fellow after hours and weekends to arrange admission or transfer to our facility.Please bring this report with you if you go to theemergency room. Attending Participation: I was present and participated during the entire procedure, including non-conti portions. Electronically signed by Keira Joyner MD Keira Joyner M.D. 07/13/2024 10:26:50 AM . Number of Addenda: 0 Note Initiated On: 07/13/2024 9:18 AM Keira Joyner DO ENDOSCOPY PROCEDURES Final Result * POCT glucose (07/13/2024 8:59 AM UTILIZATION COORDINATOR) Glucose, POC 160 70 - 199 mg/dL Blood 07/13/2024 8:59 AM UTILIZATION COORDINATOR 07/13/2024 8:59 AM UTILIZATION COORDINATOR Keira Joyner DO LAB POCT ORDERABLES - IRLANDA CE Final Result KATHY TRACY [facility] Department [place] [address] * TSH (06/23/2024 8:09 AM UTILIZATION COORDINATOR) TSH 1.80 0.40 - 4.50 mIU/L [facility] 06/23/2024 8:09 AM UTILIZATION COORDINATOR 06/23/2024 8:11 AM UTILIZATION COORDINATOR Narrative [facility] - 06/25/2024 12:31 PM UTILIZATION COORDINATOR FASTING:YES FASTING: YES Cl Aguiar MD LAB BLOOD ORDERABLES Fin al Result Performing Organization Address City/[facility]/ZIP Co de Phone Number [facility] [address] [address] [id number] * Lipid panel (06/23/2024 8:09 AM UTILIZATION COORDINATOR) Pathologist [facility] Cholesterol 141 <200 mg/dL [facility] HDL 75 > OR = 50 mg/dL [facility] Triglycerides 48 <150 mg/dL [facility] LDL 52 mg/dL (calc) [facility] Comment: Reference range: <100 Desirable range <100 mg/dL for primary prevention; <70 mg/dL for patients with CHD or diabetic patients with > or = 2 CHD risk factors. LDL-C is now calculated using the Isidro-Walsh calculation, which is a validated novel method providing better accuracy than the Friedewald equation in the estimation of LDL-C. Isidro SS et al. DIANNA. 2013;310(19): 2867-7057 (http://education.ShopSocially/faq/EJB618) Chol/HDL ratio 1.9 <5.0 (calc) [facility] Non-HDL, (LDL+VLDL) 66 <130 mg/dL (calc) [facility] Comment: For patients with diabetes plus 1 major ASCVD risk factor, treating to a non-HDL-C goal of <100 mg/dL (LDL-C of <70 mg/dL) is considered a therapeutic option. 06/23/2024 8:09 AM UTILIZATION COORDINATOR 06/23/2024 8:11 AM UTILIZATION COORDINATOR Narrative [facility] - 06/25/2024 12:31 PM UTILIZATION COORDINATOR FASTING:YES FASTING: YES Cl Aguiar MD LAB BLOOD ORDERABLES Fin al Result [facility] [address] [address] [phone] * (ABNORMAL) Comprehensive metabolic panel (06/23/2024 8:09 AM UTILIZATION COORDINATOR) Glucose 194(H) 65 - 99 mg/dL [facility] Comment: Fasting reference interval For someone without known diabetes, a glucose value >125 mg/dL indicates that they may have diabetes and this should be confirmed with a follow-up test. BUN 19 7 - 25 mg/dL [facility] Creatinine 1.01 0.50 - 1.05 mg/dL [facility] eGFR 62 > OR = 60 mL/min/1.7 3m2 [facility] BUN/creat ratio SEE NOTE: 6 - 22 (calc) [facility] Comment: Not Reported: BUN and Creatinine are within reference range. Sodium 143 135 - 146 mmol/L [facility] Potassium, pl 4.4 3.5 - 5.3 mmol/L [facility] Chloride 108 98 - 110 mmol/L [facility] CO2 24 20 - 32 mmol/L [facility] Calcium 8.9 8.6 - 10.4 mg/dL [facility] Protein, sr 6.7 6.1 - 8.1 g/dL [facility] Albumin 4.1 3.6 - 5.1 g/dL [facility] GLOBULIN 2.6 1.9 - 3.7 g/dL (calc) [facility] Alb/glob ratio 1.6 1.0 - 2.5 (calc) [facility] Bilirubin, total 0.7 0.2 - 1.2 mg/dL [facility] Alk phos 113 37 - 153 U/L [facility] AST 25 10 - 35 U/L [facility] ALT (SGPT) 20 6 - 29 U/L [facility] 06/23/2024 8:09 AM UTILIZATION COORDINATOR 06/23/2024 8:11 AM UTILIZATION COORDINATOR Narrative [facility] - 06/25/2024 12:31 PM UTILIZATION COORDINATOR FASTING:YES FASTING: YES us Cl Aguiar MD LAB BLOOD ORDERABLES Fin al Result [facility] [address] [address] [phone] * Albumin Creatinine Ratio, Urine (06/23/2023 10:39 AM UTILIZATION COORDINATOR) Creatinine ur 81.3 Not Estab. mg/dL [facility] - 01 Microalbumin, ur 9.6 Not Estab. ug/mL [facility] - 01 Microalbumin/cre at ratio 12 0 - 29 mg/g creat [facility] - 01 Comment: Normal: 0 - 29 Moderately increased: 30 - 300 Severely increased: >300 Urine 06/23/2023 10:3 9 AM UTILIZATION COORDINATOR 06/23/2023 Narrative [facility] - 06/24/2023 9:12 AM UTILIZATION COORDINATOR Performed at: 01 - [facility] [address] [address]: Russel Brooks PhD, Phone: [phone] Indu Gandhi NP LAB URINE ORDERABLES Fin al Result Performing Organization Address [facility] de Phone Number [facility] - 01 from Last 3 Months or Most Recently Relevant to Health Maintenance Insurance MEDICARE [facility] MEDICARE SUPPLEMENT MEDICARE [facility] MEDICARE SUPPLEMENT [place] [facility] MEDICARE SUPPLEMENT MEDICARE Advance Directives For more information, please contact: [phone] * Full Code (Latest Code Status on File) Date Activated Date Inactivated Comments 07/13/2024 8:49 AM 07/13/2024 3:32 PM * Full Code Date Activated Date Inactivated Comments 07/16/2023 8:33 PM 07/27/2023 5:43 PM * Full Code Date Activated Date Inactivated Comments 01/21/2022 12:00 PM 01/22/2022 4:45 AM Care Teams Hydraulic Press In Operator Relationship Specialty Start Date End Date Lisa Blake NP [address] [place] [id number] PCP - General Nurse Practitioner 3/18/25
--- OUTSIDE RECORDS SUMMARY | 2024-09-25 12:01 | XMS_ITS | Clinical Summary ---
Author Organization [facility] [address] Address [address] [place] [address] Care Team Providers Care Board Hammer Operator Name Role Phone Lisa Blake NP Primary Care Provider Allergies No known active allergies Medications montelukast [...] 07/16/2023 Assessment & Plan (07/25/2023 4:02 PM PARAMEDIC SUPERVISOR): S/p R wrist fixation 07/14 (fracture from mechanical fall) - Ortho follow up (in [place], [place]) scheduled 07/28/23. Remains NWB RUE - PT/OT consulted - APAP, oxy prn. Miralax prn Atrial fibrillation with rapid ventricular respo nse 05/11/2022 Assessment & Plan (07/26/2023 1:02 PM PARAMEDIC SUPERVISOR): SVT to 190s likely from not tolerating PO and not taking dilt vs dehydration from DKA on admission. - Last ECHO 11/2022 with EF 61%. Follows with Андрей, Dr. Chambers as outpatient - Gen cards consult --- [...] 05/11 Type 1 diabetes mellitus with hyperglycemia 10/2021 Assessment & Plan (09/27/2023 9:43 AM CDT): A1C 6.8% Will lower AIT to 2h from 3h & loosen IR from [id number] to 1:6 from 1:5, will review in 1 week, may need further ICR adjustment Discussed trying to start bolus 5-10 min prior to intake given occasional post-hypoglycemic events Labs 06/2024 Will schedule eye exam Assessment & Plan (06/23/2023 10:25 AM PARAMEDIC SUPERVISOR): A1C 8.2% Has back up basal pen, 18-20 units for failure Continue CSII/CGM Needs eye exam Labs today, including C-peptide since will transition to MCR 07/2024 Assessment & Plan (02/11/2022 2:54 PM [...] how glucose changes postprandially To meet with Becky, CDNCE later today Essential hypertension 06/12/2020 Overview (06/12/2020): Same meds Assessment & Plan (07/25/2023 12:47 PM PARAMEDIC SUPERVISOR): BP as low as 80/40s but likely from dehydration d/t DKA vs AFRVR and now resolved. BP been stable - c/w home lasix 20 Mild intermittent asthma 06/12/2020 Overview (06/12/2020): Per primary Resolved Problems Problem Noted Date Diagnosed Date Resolved Date Neck pain 07/26/2023 09/27/2023 Assessment & Plan (07/27/2023 9:40 AM PARAMEDIC SUPERVISOR): R neck pain following DCCV on 07/26. [...] 24 Assessment & Plan (07/18/2023 10:27 AM PARAMEDIC SUPERVISOR): UA obtained d/t DKA with 2+ LE, [...] 09/27/2023 Assessment & Plan (07/26/2023 1:03 PM PARAMEDIC SUPERVISOR): P/w DKA: BG 580, AG 22, bicarb [...] 07/26 Type 1 diabetes mellitus without complication 06/12/2006/23/2023 Overview (06/12/2020): Contnue CSII and CGM Insulin to carb ratios adjusted. Upload one week Encounters Date Type Department Care Team Description 09/24/2024 Telephone [facility] [address] [place] [address] Anya Wang RN GI Preprocedure 08/21/2024 11:00 AM PARAMEDIC SUPERVISOR Office Visit [facility] [address] [place] [phone] Cl Aguiar MD Type 1 diabetes mellitus with hyperglycemia (HCC) (Primary Dx); Essential hypertension 08/20/2024 Telephone [facility] [address] [place] [address] [address] [place] [address] Shelby Lester RN 08/15/2024 Telephone [facility] [address] [place] [address] 12[address] [place] [address] [place] [address] Daniel Sweet RN GI Pre Procedure Assessment 07/23/2024 Telephone [facility] [address] [place] [address] [address] [place] [address] Shelby Lester RN 07/13/2024 9:30 AM PARAMEDIC SUPERVISOR - 07/13/2024 10:30 AM PARAMEDIC SUPERVISOR Surgery [facility] [address] [address] Keira Joyner DO ESOPHAGOGASTRODUODENOSCOPY BIOPSY 07/13/2024 9:16 AM PARAMEDIC SUPERVISOR Anesthesia Event [facility] [address] [address] Lesa Blair MD Ruamwijitphon g, Witoon, ALLYSON 07/13/2024 8:29 AM PARAMEDIC SUPERVISOR - 07/13/2024 11:27 AM PARAMEDIC SUPERVISOR Hospital Encounter [address] [address] Keira Joyner DO Anemia, unspecified type Discharge Disposition: Discharge to home or self care 07/10/2024 Telephone [facility] [address] [place] [phone] Anya Wang, MINDY GI Preprocedure 07/06/2024 Telephone [facility] [address] [place] [phone] Anya Wang, MINDY GI Preprocedure 06/29/2024 [facility] [address] [place] [phone] Elizabeth Rosales RN 06/29/2024 [facility] [address] [place] [phone] Cl Aguiar MD 06/29/2024 [facility] [address] [place] [phone] Cl Aguiar MD from Last 3 Months Immunizations Immunization Administration Dates Next Due Influenza, Trivalent, IM (MDV) 04/11/2012 Pneumococcal Polysaccharide PPV23 04/11/2012 Surgical History Surgery Date Site/Laterality Comments OVARIAN CYST REMOVAL WRIST SURGERY Left COLONOSCOPY Medical History Medical History Date Comments Diabetes mellitus (HCC) Arrhythmia Hypertension Asthma Osteoporosis Atrial fibrillation (HCC) Family History Medical History Relation Name Comments Atrial fibrillation Brother Hypertension Brother Diabetes Father Heart attack Father Hypertension Father Atrial fibrillation Mother Hypertension Mother Pancreatic cancer Mother Relation Name Status Comments Brother Father Mother Social History Tobacco Use Types Packs/Day Years [...] on file Legal Sex Female 3:31 AM PARAMEDIC SUPERVISOR Gender Identity Not on file Sexual Orientation Not on file Obstetrics History Last Filed Vital Signs Vital Sign Reading Time Taken Comments Blood Pressure 132/76 08/21/2024 10:48 AM PARAMEDIC SUPERVISOR Pulse 74 08/21/2024 10:48 AM PARAMEDIC SUPERVISOR Temperature 36.2 C (97.2 F) 07/13/2024 10:26 AM PARAMEDIC SUPERVISOR Respiratory Rate 18 07/13/2024 10:46 AM PARAMEDIC SUPERVISOR Oxygen Saturation 98% 08/21/2024 10:48 AM PARAMEDIC SUPERVISOR Inhaled Oxygen Concentration - - Weight 82.6 kg (182 lb) 08/21/2024 10:48 AM PARAMEDIC SUPERVISOR Height 160 cm (5' 3 ) 08/21/2024 10:48 AM PARAMEDIC SUPERVISOR Body Mass Index 32.24 08/21/2024 10:48 AM PARAMEDIC SUPERVISOR Plan of Treatment Upcoming Encounters Date Type Department Care Team (Latest Contact Info) Description 10/01/2024 8:00 AM CDT Hospital Encounter [facility] [address] [facility] [address] [place] [address] Keira Joyner, DO [address] [place] [address] 10/01/2024 8:00 AM CDT - 10/01/2024 8:30 AM CDT Surgery [facility] [address] [facility] [address] [place] [address] Keira Joyner, [address] [place] [address] ESOPHAGOGASTRODUODENOSCOPY Scheduled Procedures Name Priority Associated Diagnoses Date/Ti me ESOPHAGOGASTRODUODENOSCOPY Esophagitis Intestinal metaplasia of antrum of stomach without dysplasia 10/01/2024 8:00 AM CDT Health Maintenance Due Date Last Done Comments Cervical Cancer Screening 1960 Depression Screening 1960 Foot Exam 1960 Hepatitis C Screening 1960 Osteoporosis Screening-Bone Density Scan 1960 Dilated Eye Exam 1969 DTaP/Tdap/Td Vaccine (1 - Tdap) 1970 Hepatitis B Screening 1977 Zoster Vaccine (1 of 2) 2009 Pneumococcal vaccine 65+ (2 of 2 - PCV) 04/11/2013 04/11/2012 Breast Cancer Screening-Mammogram 07/14/2017 017 Covid-19 Vaccine ( - 2023-2 5 season) 2024 04/15/2021, 08/28/2020, 07/31/2020 Influenza Vaccine (#1) 2024 04/11/2012 Well Visit 65+ 2024 Albumin Creatinine Ratio, Urine 06/23/2024 Hemoglobin A1C 02/18/2025 08/21/2024, 11/0 11/2023, 07/17/2023, Additional history exists Lipid Panel 06/23/2025 06/23/2024, 08/12, 08/25/2022, Additional history exists TSH Level 06/23/2025 06/23/2024, 06/10, 01/12/2022, Additional history exists eGFR 06/23/2025 06/23/2024, 07/11, 07/25/2023, Additional history exists Fall Risk Assessment 07/13/2025 07/13/2024 Colon Cancer Screening-Colonoscopy 07/13/20342024 Procedures Procedure Name Priority Date/Time Associated Diagnosis Comments POCT HEMOGLOBIN A1C Routine 08/21/2024 10:59 AM PARAMEDIC SUPERVISOR Type 1 diabetes mellitus with hyperglycemia (HCC) COLONOSCOPY 07/13/2024 9:47 AM PARAMEDIC SUPERVISOR SURGICAL PATHOLOGY Routine 07/13/2024 9:27 AM PARAMEDIC SUPERVISOR Anemia, unspecified type EGD 07/13/2024 9:18 AM PARAMEDIC SUPERVISOR ENDO ADD ON COLON INJECTION SUBMUCOSAL Open Access 07/13/2024 9:18 AM PARAMEDIC SUPERVISOR Anemia, unspecified type Special Needs Careful with movements d/t pt has muscle strain in chest area COLON REMOVAL SNARE Open Access 07/13/2024 9:18 AM PARAMEDIC SUPERVISOR Anemia, unspecified type Special Needs Careful with movements d/t pt has muscle strain in chest area ESOPHAGOGASTRODUODENOSCOPY BIOPSY Open Access 07/13/2024 9:18 AM PARAMEDIC SUPERVISOR Anemia, unspecified type Special Needs Careful with movements d/t pt has muscle strain in chest area POCT GLUCOSE DEVICE Routine 07/13/2024 8:59 AM PARAMEDIC SUPERVISOR COMPREHENSIVE METABOLIC PANEL Routine 8:09 AM PARAMEDIC SUPERVISOR LIPID PANEL Routine 06/23/2024 8:09 AM PARAMEDIC SUPERVISOR TSH Routine 06/23/2024 8:09 AM PARAMEDIC SUPERVISOR ALBUMIN CREATININE RATIO, URINE Routine 06/23/2023 10:39 AM PARAMEDIC SUPERVISOR Type 1 diabetes mellitus with hyperglycemia (HCC) from Last 3 Months or Most Recently Relevant to Health Maintenance Results * POCT hemoglobin A1c (08/21/2024 10:59 AM PARAMEDIC SUPERVISOR) Hemoglobin A1C, POC 8.0 4.0 - 5.6 % Blood 08/21/2024 10:5 9 AM PARAMEDIC SUPERVISOR us Cl Aguiar MD POINT OF CARE TEST ORDER KEVIN Final Result * Colonoscopy (07/13/2024 9:47 AM PARAMEDIC SUPERVISOR) Anatomical Region Laterality Modality Other Narrative Procedure Note Keira Joyner, DO - 07/13/2024 9:47 AM CST GI ENDOSCOPY [facility] Patient Name: Elyse Lucero Procedure Date: 07/13/2024 9:47 AM Date of : 1960 Admit Type: Outpatient Age: 64 Gender: Female Attending MD: Keira Joyner M.D. Room: [facility] 4 Note Status: Finalized Procedure: [...] The scope was passed under direct vision.The [id number] endoscope was introduced through the anus and advanced to the terminal ileum. The colonoscopy was somewhat difficult due to atortuous colon. The patient tolerated the procedure well.The quality of the bowel preparation was good. Thequality of the bowel preparation was evaluated using theBBPS (Monroe Bowel Preparation Scale) with scores of:Right Colon [...] the days following this procedure please call [phone] ask for my nurse, Daniel. After hours and evenings please call [phone] and speak to the GI fellowon call. [...] Result * Surgical pathology (07/13/2024 9:27 AM PARAMEDIC SUPERVISOR) Tissue (Duodenum, Biopsy) 07/13/2024 9:27 AM PARAMEDIC SUPERVISOR Tissue (Gastric/Stomach biopsy) 07/13/2024 9:39 AM PARAMEDIC SUPERVISOR Tissue (Polyp(s), colon/colorectal, esophageal, gastric) 07/13/2024 10:13 AM PARAMEDIC SUPERVISOR Narrative PATHOLOGY [facility] - 07/18/2024 4:25 PM PARAMEDIC SUPERVISOR EPIC results best viewed via link to PDF [facility] Padmini Merino Laboratory of Surgical Pathology [facility], [place] [address] Note to Patients: This report may contain [...] Gender: F : 1960 (Age: 64) Address: [address] [place] [phone] Hospital #: [id number] Taken:07/13/2024 Received:07/13/2024 Reported: 07/18/2024 Patient Type: [facility] Service: Gastro Location: Physician(s): MD Jaime Khan [...] Surgical Pathology and Flow Cytometry Departments at [facility] as part of an ongoing senior quality assurance engineer program and in compliance with federally mandated [...] Surgical Pathology and Flow Cytometry Departments of [facility]. It has not been cleared or approved by the U. S. Food and Drug Administration. IMAGES AND SCANNED DOCUMENTS, IF INCLUDED, ONLY VIEWABLE IN PDF VERSION OF REPORT Keira Joyner DO LAB PATHOLOGY ORDERABLES F inal Result PATHOLOGY [facility] 3rd Floor KRISHNA Tirado [phone] * EGD (07/13/2024 9:18 AM PARAMEDIC SUPERVISOR) Anatomical Region Laterality Modality Other Narrative Procedure Note Keira Joyner, - 07/13/2024 9:18 AM CST [facility] ENDOS[facility] Patient Name: Elyse Lucero Procedure Date: 07/13/2024 9:18 AM Date of : 1960 Admit Type: Outpatient Age: 64 Gender: Female Attending MD: Keira Joyner M.D. Room: [facility] 4 Note Status: Finalized Procedure: [...] passed under direct vision. The GIF [id number] endoscope wasintroduced through the mouth, and advanced [...] the days following this procedure please call [phone] ask for my nurse, Daniel.. After hours and evenings please call [phone] and speak to the GI fellowon call. [...] 0 Note Initiated On: 07/13/2024 9:18 AM us Keira Joyner DO ENDOSCOPY PROCEDURES Final Result * POCT glucose (07/13/2024 8:59 AM PARAMEDIC SUPERVISOR) Glucose, POC 160 70 - 199 mg/dL Blood 07/13/2024 8:59 AM PARAMEDIC SUPERVISOR 07/13/2024 8:59 AM PARAMEDIC SUPERVISOR Keira Joyner DO LAB POCT ORDERABLES - IRLANDA CE Final Result KATHY BJ [facility] Department [place] [address] * TSH (06/23/2024 8:09 AM PARAMEDIC SUPERVISOR) TSH 1.80 0.40 - 4.50 mIU/L [facility] 06/23/2024 8:09 AM PARAMEDIC SUPERVISOR 06/23/2024 8:11 AM PARAMEDIC SUPERVISOR Narrative [facility] - 06/25/2024 12:31 PM PARAMEDIC SUPERVISOR FASTING:YES FASTING: YES Cl Aguiar MD LAB BLOOD ORDERABLES Fin al Result Performing Organization Address [facility] [place] [facility]/ZIP Co de Phone Number [facility] [address] [phone] * Lipid panel (06/23/2024 8:09 AM PARAMEDIC SUPERVISOR) Pathologist [facility] Cholesterol 141 <200 mg/dL [facility] [...] factors. LDL-C is now calculated using the Isidro-Nico calculation, which is a validated novel method providing better accuracy than the Friedewald equation in the estimation of LDL-C. Isidro SAHNI et al. DIANNA. 2013;310(19): 7090-5622 (http://education.ISIS sentronics/faq/MJY752) Chol/HDL ratio 1.9 <5.0 (calc) [facility] Non-HDL, (LDL+VLDL) 66 <130 mg/dL (calc) [facility] Comment: For patients with diabetes plus 1 major ASCVD risk factor, treating to a non-HDL-C goal of <100 mg/dL (LDL-C of <70 mg/dL) is considered a therapeutic option. 06/23/2024 8:09 AM PARAMEDIC SUPERVISOR 06/23/2024 8:11 AM PARAMEDIC SUPERVISOR Narrative [facility] - 06/25/2024 12:31 PM PARAMEDIC SUPERVISOR FASTING:YES FASTING: YES Cl Aguiar MD LAB BLOOD ORDERABLES Fin al Result Performing Organization Address City/[facility] [place] [facility]/ZIP Co de Phone Number [facility] [address] [address] [phone] * (ABNORMAL) Comprehensive metabolic panel (06/23/2024 8:09 AM PARAMEDIC SUPERVISOR) Glucose 194(H) 65 - 99 mg/dL [facility] [...] U/L [facility] 06/23/2024 8:09 AM PARAMEDIC SUPERVISOR 06/23/2024 8:11 AM PARAMEDIC SUPERVISOR Narrative [facility] - 06/25/2024 12:31 PM PARAMEDIC SUPERVISOR FASTING:YES FASTING: YES Cl Aguiar MD LAB BLOOD ORDERABLES Fin al Result [facility] [address] [place] [address] * Albumin Creatinine Ratio, Urine (06/23/2023 10:39 AM PARAMEDIC SUPERVISOR) Creatinine ur 81.3 Not Estab. mg/dL [facility] - 01 Microalbumin, ur 9.6 Not Estab. ug/mL [facility] - 01 Microalbumin/cre at ratio 12 0 - 29 mg/g creat [facility] - 01 Comment: Normal: 0 - 29 Moderately increased: 30 - 300 Severely increased: >300 Urine 06/23/2023 10:3 9 AM PARAMEDIC SUPERVISOR 06/23/2023 Narrative [facility] - 06/24/2023 9:12 AM PARAMEDIC SUPERVISOR Performed at: [address] [facility] [id number] Supervisor Nurse: Russel Brooks PhD, Phone: [phone] Indu Gandhi NP LAB URINE ORDERABLES Fin al Result Performing Organization Address City/State/[facility] Co de Phone Number [facility] - 01 from Last 3 Months or Most Recently Relevant to Health Maintenance Insurance MEDICARE [facility] MEDICARE SUPPLEMENT [facility]ICARE [facility] MEDICARE SUPPLEMENT CHOICE PRF [place]PO [place] [facility] MEDICARE SUPPLEMENT Member Subscriber Plan / Payer (Ef fective 2024-Present) Name:Elyse Lucero Yfn Relation to Subscriber:Self Name:Elyse Lucero Payer ID:[id number] Group ID:[id number] Type:COMMERCIAL Address: [address] [place] [id number] MEDICARE Advance Directives For more information, please contact: [phone] * Full Code (Latest Code Status on File) Date Activated Date Inactivated Comments 07/13/2024 8:49 AM 07/13/2024 3:32 PM * Full Code Date Activated Date Inactivated Comments 07/16/2023 8:33 PM 07/27/2023 5:43 PM * Full Code Date Activated Date Inactivated Comments 01/21/2022 12:00 PM 01/22/2022 4:45 AM Care Teams Board Hammer Operator Relationship Specialty Start Date End Date Lisa Blake NP [address] [place] [address] PCP - General Nurse Practitioner 09/25/24
[2024-09-25 12:39] LABS: Glucose Point of Care 253 mg/dl (65-105)
[2024-09-25 12:39] LABS: Glucose Point of Care 248 mg/dl (65-105)
== END 2024-09-25 10:38 | disposition home or self-care (01) ==
DX: R06.02 Shortness of breath (principal); D48.0 Neoplasm of uncertain behavior of bone and articular cartilage; I10 Essential (primary) hypertension; M89.9 Disorder of bone, unspecified; R07.89 Other chest pain; S22.20XA Unspecified fracture of sternum, initial encounter for closed fracture; X58.XXXA Exposure to other specified factors, initial encounter
CPT/HCPCS: 99199

== ENCOUNTER 2024-12-10 10:53 | Emergency (ER) | payer MEDICARE, SELFPAY ==
[2024-12-10] VITALS (7 sets, daily range): BP systolic 102–164; BP diastolic 59–101; PULSE 78–117; RESP 12–19; TEMP 36.4; O2SAT 95–100
--- NOTE | ~2024-12-10 | XR_ITS ---
XR knee RT min 4V 12/10/2024 13:21 Indication: Right knee pain after fall Procedure: 4 views right knee Comparison: No prior studies for comparison. Findings: There is a comminuted displaced, depressed right lateral tibial plateau fracture. There is probable involvement of the medial tibial plateau as well. Moderate lipohemarthrosis. There is a comm inuted displaced proximal fibular fracture. Impression: 1: Comminuted displaced right lateral tibial plateau and proximal fibular fractures. 2: Moderate lipohemarthrosis. Reviewed, dictated and finalized at location A. Impression: 1: Comminuted displaced right lateral tibial plateau and proximal fibular fract ures. 2: Moderate lipohemarthrosis.
--- NOTE | ~2024-12-10 | XR_ITS ---
XR ankle RT 2V 12/10/2024 13:51 Indication: Ankle pain after fall Procedure: 3 views right ankle Comparison: No prior studies for comparison. Findings: No fracture, subluxation or dislocation. Osteopenia. No focal soft tissue abnormality. Ankl e mortise intact. Impression: 1: No acute bone or joint abnormality. Reviewed, dictated and finalized at location A. Impression: 1: No acute bone or joint abnormality.
--- NOTE | 2024-12-10 11:30 | PC.NURSE ---
EDP Roseanna Stone made aware of pt c/o severe knee pain.
--- OUTSIDE RECORDS SUMMARY | 2024-12-10 11:30 | XMS_ITS | Clinical Summary ---
Author Organization [facility] [address] Address [address] [place] [address] Care Team Providers Care Passenger Service Manager Name Role Phone Lisa Blake NP Primary Care Provider Allergies No known active allergies Medications montelukast (SINGULAIR) 10 mg tablet Take 1 tablet (10 mg total) by mouth daily 05/13/20 20 Active cholecalciferol (VITAMIN D-3) 5,000 unit capsule Take 1 capsule (5,000 Units total) by mouth daily Active blood glucose diagnostic (Contour Next Test Strips) strip TEST BLOOD SUGAR FOUR TIMES DAILY DIRECTED 400 strip 3 07/01/20 23 Active ketone blood test strip Test urine ketones as directed 50 strip 2 07/16/19 24 Active insulin syringe-needle U-100 0.5 mL 31 gauge x 5/16 syringe Use to inject 1-4 times daily as directed. 100 each 4 07/16/19 24 Active glucagon (Baqsimi) 3 mg/actuation spray,non-aerosol Administer 1 spray (3 mg total) into one nostril as needed (for use in case of emergency for hypoglycemia) 1 each 2 05/15/20 24 Active albuterol HFA (PROVENTIL HFA,VENTOLIN HFA,PROAIR HFA) 90 mcg/actuation inhaler Inhale 2 puffs every 6 (six) hours as needed for wheezing Active acetone, urine, test strip TEST DIRECTED 05/17/20 24 Active insulin aspart (NovoLOG) 100 unit/mL vial for injectionIndicatio ns:Type 1 diabetes mellitus with hyperglycemia (HCC) Inject 60 Units under the skin daily 60 mL 3 07/25/[address] (PROTONIX) 40 mg EC tablet Take 1 tablet (40 mg total) by mouth 2 (two) times a day 180 tablet 10/17/19 25 025 Active valsartan (DIOVAN) 160 mg tablet Take 1 tablet (160 mg total) by mouth daily 90 tablet 3 11/20/19 25 026 Active ondansetron ODT (ZOFRAN-ODT) 4 mg disintegrating tablet Take 1 tablet (4 mg total) by mouth every 8 (eight) hours as needed for nausea or vomiting 20 tablet 3 11/20/19 25 Active traZODone (DESYREL) 50 mg tablet Take 1 tablet (50 mg total) by mouth nightly as needed for sleep 90 tablet 3 11/20/19 25 026 Active CALCIUM CITRATE, BULK, MISC 1,200 mg daily Acti ve romosozumab-aqqg (EVENITY SUBQ) Inject under the skin every 30 (thirty) days Active diltiazem (TIAZAC) 360 mg 24 hr capsule Take 1 capsule (360 mg total) by mouth daily 90 capsule 3 12/05/19 25 026 Active furosemide (LASIX) 20 mg tablet Take 1 tablet (20 mg total) by mouth daily 90 tablet 3 12/05/19 25 026 Active rosuvastatin (CRESTOR) 10 mg tablet Take 1 tablet (10 mg total) by mouth daily 90 tablet 3 12/05/19 25 026 Active apixaban (Eliquis) 5 mg tablet Take 1 tablet (5 mg total) by mouth 2 (two) times a day 180 tablet 3 12/05/19 25 026 Active ascorbic acid (VITAMIN C) 500 mg tablet,chewable Take 1 tablet/chew tab (500 mg total) by mouth every other day 025 Discontin ued(Thera py completed ) diltiazem (TIAZAC) 360 mg 24 hr capsule Take 1 capsule (360 mg total) by mouth daily 90 capsule 3 11/22/19 24 025 Discontin ued(Reord er) Eliquis 5 mg tablet Take 1 tablet (5 mg total) by mouth 2 (two) times a day 180 tablet 3 11/22/19 24 025 Discontin ued(Reord er) furosemide (LASIX) 20 mg tablet Take 1 tablet (20 mg total) by mouth daily 90 tablet 3 11/22/19 24 025 Discontin ued(Reord er) rosuvastatin (CRESTOR) 10 mg tablet Take 1 tablet (10 mg total) by mouth daily 90 tablet 3 11/22/19 24 025 Discontin ued(Reord er) ondansetron ODT (ZOFRAN-ODT) 4 mg disintegrating tablet DISSOLVE 1 TABLET(4 MG) ON THE TONGUE EVERY 8 HOURS NEEDED FOR NAUSEA OR VOMITING 20 tablet 3 11/23/19 24 025 Discontin ued(Thera py completed ) cyclobenzaprine (FLEXERIL) 5 mg tablet Take 1 tablet (5 mg total) by mouth 3 (three) times a day as needed for muscle spasms 07/05/20 24 025 Discontin ued(Thera py completed ) Hospital, Clinic, or Other Facility Administered Medication [...] 07/16/2023 Assessment & Plan (07/25/2023 4:02 PM HEAD FILTER TANK TENDER HELPER): S/p R wrist fixation 07/14 (fracture from mechanical fall) - Ortho follow up (in [place], [place]) scheduled 07/28/23. Remains NWB RUE - PT/OT consulted - APAP, oxy prn. Miralax prn Atrial fibrillation with rapid ventricular respo nse 05/11/2022 Assessment & Plan (07/26/2023 1:02 PM HEAD FILTER TANK TENDER HELPER): SVT to 190s likely from not tolerating [...] 2h from 3h & loosen IR from [id number] to 1:6 from 1:5, will review in 1 week, may need further ICR adjustment Discussed trying to start bolus 5-10 min prior to intake given occasional post-hypoglycemic events Labs 06/2024 Will schedule eye exam Assessment & Plan (06/23/2023 10:25 AM HEAD FILTER TANK TENDER HELPER): A1C 8.2% Has back up basal pen, 18-20 units for failure Continue CSII/CGM Needs eye exam Labs today, including C-peptide since will transition to [facility] 07/2024 Assessment & Plan (02/11/2022 2:54 PM [...] how glucose changes postprandially To meet with ALMA Pena later today Essential hypertension 06/12/2020 Overview (06/12/2020): Same meds Assessment & Plan (07/25/2023 12:47 PM HEAD FILTER TANK TENDER HELPER): BP as low as 80/40s but likely from dehydration d/t DKA vs AFRVR and now resolved. BP been stable - c/w home lasix 20 Mild intermittent asthma 06/12/2020 Overview (06/12/2020): Per primary Resolved Problems Problem Noted Date Diagnosed Date Resolved Date Neck pain 07/26/2023 09/27/2023 Assessment & Plan (07/27/2023 9:40 AM HEAD FILTER TANK TENDER HELPER): R neck pain following DCCV on 07/26. [...] 24 Assessment & Plan (07/18/2023 10:27 AM HEAD FILTER TANK TENDER HELPER): UA obtained d/t DKA with 2+ LE, [...] 09/27/2023 Assessment & Plan (07/26/2023 1:03 PM HEAD FILTER TANK TENDER HELPER): P/w DKA: BG 580, AG 22, bicarb 19, pH 7.33, WBC 13, ketones 3.2, CXR neg. Possibly 2/2 stress response from wrist surgery 1/4 vs pump failure (not turning on despite [...] Encounters Date Type Department Care Team Description 12/05/2024 Results Follow-Up [facility] [address] [place] [address] Sony Morales MD ECG 12 lead 12/04/2024 8:45 AM CDT Office Visit [facility] [address] [place] [address] Medical Office Building [address] [place] [phone] Sony Morales MD Atrial fibrillation with rapid ventricular response (HCC) (Primary Dx); Essential hypertension; Nonrheumatic tricuspid valve regurgitation; Nonrheumatic mitral valve regurgitation 11/23/2024 Results Follow-Up [facility] [address] [place] [address] [address] Poli Suarez RMA Iron profile w/ IBC, CBC with auto differential, Differential, auto, Additional followed-up results: 2 11/19/2024 3:30 PM CDT - 11/19/2024 11:59 PM CDT Hospital Encounter [facility] [address] [place] [address] Type 1 diabetes mellitus wit h hyperglycemia (HCC); Essential hypertension; Other iron deficiency anemia Discharge Disposition: Discharge to home or self care 11/19/2024 10:00 AM CDT Office Visit [facility] [address] [place] [address] [address] [phone] Cl Aguiar MD Type 1 diabetes mellitus with hyperglycemia (HCC) (Primary Dx); Essential hypertension; Other iron deficiency anemia 10/03/2024 Results Follow-Up [facility] [address] [facility] 12th [place] [address] [place] [address] Keira Joyner DO Surgical pathology 10/01/2024 8:01 AM CDT Anesthesia Event [facility] [address] [address] Haris Quintana MD 10/01/2024 8:00 AM CDT - 10/01/2024 8:30 AM CDT Surgery [facility] [address] [address] Keira Joyner DO ESOPHAGOGASTRODUODENOSCOPY BIOPSY 10/01/2024 6:47 AM CDT - 10/01/2024 8:55 AM CDT Hospital Encounter [facility] [address] [address] Keira Joyner DO Esophagitis; Intestinal metaplasia of antrum of stomach without dysplasia Discharge Disposition: Discharge to home or self care 09/24/[address] [facility] Special[facility] [address] [place] [address] Anya Wang RN GI Preprocedure from Last 3 Months Immunizations Immunization Administration Dates Next Due Influenza, Trivalent, IM (MDV) 04/11/2012 Pneumococcal Polysaccharide PPV23 04/11/2012 Surgical History Surgery Date Site/Laterality Comments OVARIAN CYST REMOVAL WRIST SURGERY Left COLONOSCOPY UPPER GASTROINTESTINAL ENDOSCOPY Medical History Medical History Date Comments Diabetes mellitus (HCC) Arrhythmia Hypertension Asthma Osteoporosis Atrial fibrillation (HCC) Anemia Esophagitis GERD (gastroesophageal reflux disease) Family History Medical History Relation Name Comments [...] you have a drink containing alcohol? Never 10/01/2024 Q2: How many drinks containi ng alcohol do you have on a typical day when you are drinking? Patient does not drink Q3: How often do you have si x or more drinks on one occasion? Never 10/01/2024 Personal Safety Answer Date Recorded Have you ever been in or are you currently in a harmful physical or emotional relationship or is someone making you feel afraid or unsafe? Denies 10/01/2024 Comments No Sex and Gender Information Value Date Recorded Sex Assigned at Not on file Legal Sex Female 3:31 AM HEAD FILTER TANK TENDER HELPER Gender Identity Not on file Sexual Orientation Not on file Obstetrics History Last Filed Vital Signs Vital Sign Reading Time Taken Comments Blood Pressure 120/72 12/04/2024 8:57 AM CDT Pulse 88 12/04/2024 8:57 AM CDT Temperature 36.1 C (97 F) 10/01/2024 8:18 AM CDT Respiratory Rate 18 10/01/2024 8:38 AM CDT Oxygen Saturation 97% 12/04/2024 8:57 AM CDT Inhaled Oxygen Concentration - - Weight 82.8 kg (182 lb 9.6 oz) 12/04/2024 8:57 A M CDT Height 157.5 cm (5' 2) 12/04/2024 8:57 AM CDT Body Mass Index 33.4 12/04/2024 8:57 AM CDT Plan of Treatment Health Maintenance Due Date [...] Breast Cancer Screening-Mammogram 07/14/2017 017 Covid-19 Vaccine (4 2023-2 5 season) 2024 04/15/2021, 08/28/2020, 07/31/2020 Well Visit 65+ 2024 Albumin Creatinine Ratio, Urine 06/23/2024 Influenza Vaccine (Season Ended) 2025 04/11/20 Hemoglobin A1C 05/22/2025 11/19/2024, 08/11, 05/15/2024, Additional history exists Lipid Panel 06/23/2025 06/23/2024, 08/12, 08/25/2022, Additional history exists TSH Level 06/23/2025 06/23/2024, 06/10, 01/12/2022, Additional history exists Fall Risk Assessment 10/01/2025 10/01/2024 eGFR 11/19/2025 11/19/2024, 06/10, 07/26/2023, Additional history exists Colon Cancer Screening-Colonoscopy 07/13/20342024 Procedures Procedure Name Priority Date/Time Associated Diagnosis Comments ECG 12-LEAD Routine 12/04/2024 9:06 AM CDT Essential hypertension COMPREHENSIVE METABOIC PANEL , SERUM Routine 11/19/2024 3:30 PM CDT Type 1 diabetes mellitus with hyperglycemia (HCC) Essential hypertension Other iron deficiency anemia EGFR Routine 11/19/2024 3:30 PM CDT DIFFERENTIAL AUTO Routine 11/19/2024 3:30 PM CDT Type 1 diabetes mellitus with hyperglycemia (HCC) Essential hypertension Other iron deficiency anemia CBC WITH AUTO DIFFERENTIAL Routine 11/19 3:30 PM CDT Type 1 diabetes mellitus with hyperglycemia (HCC) Essential hypertension Other iron deficiency anemia IRON PROFILE W/ IBC Routine 11/19/2024 3:30 PM CDT Type 1 diabetes mellitus with hyperglycemia (HCC) Essential hypertension Other iron deficiency anemia POCT HEMOGLOBIN A1C Routine 11/19/2024 9:00 AM CDT Type 1 diabetes mellitus with hyperglycemia (HCC) SURGICAL PATHOLOGY Routine 10/01/2024 8:13 AM CDT Esophagitis Intestinal metaplasia of antrum of stomach without dysplasia ESOPHAGOGASTRODUODENOSCOPY BIOPSY 10/01/2024 8:02 AM CDT Esophagitis Intestinal metaplasia of antrum of stomach without dysplasia EGD 10/01/2024 7:42 AM CDT POCT GLUCOSE DEVICE Routine 10/01/2024 7:19 AM CDT COLONOSCOPY 07/13/2024 9:47 AM HEAD FILTER TANK TENDER HELPER LIPID PANEL Routine 06/23/2024 8:09 AM HEAD FILTER TANK TENDER HELPER TSH Routine 06/23/2024 8:09 AM HEAD FILTER TANK TENDER HELPER ALBUMIN CREATININE RATIO, URINE Routine 06/23/2023 10:39 AM HEAD FILTER TANK TENDER HELPER Type 1 diabetes mellitus with hyperglycemia (HCC) from Last 3 Months or Most Recently Relevant to Health Maintenance Results * ECG 12 lead (12/04/2024 9:06 AM CDT) us Sony Morales MD ECG ORDERABLES Ai l Result * (ABNORMAL) eGFR (11/19/2024 3:30 PM CDT) eGFR 58(L) >=60 mL/min/1. 73 m2 Comment: Interpretive Data Reference Interval Normal >/= 90 mL/min/1.73m2 Mildly decreased* 60 - 89 mL/min/1.73m2 Mildly to moderately decreased 45 - 59 mL/min/1.73m2 Moderately to severely decreased 30 - 44 mL/min/1.73m2 Severely decreased 15 - 29 mL/min/1.73m2 Kidney Failure < 15 mL/min/1.73m2 *Relative to young adult level Estimated glomerular filtration rate is determined by the 2020 CKD-EPI equation recommended by the National Kidney Foundation (A Unifying Approach to GFR Estimation: Recommendations of the NKF-ASK Task Force on Reassessing the Inclusion of Race in Diagnosing Kidney Disease, JASN 2020). The CKD-EPI equation should not be used for patients with unstable renal function and has not been validated in children and those over 70. Current interpretive data was last reviewed 2021. Blood 11/19/2024 3:30 PM CDT 11/19/2024 7:46 PM CDT us Cl Aguiar MD LAB BLOOD ORDERABLES Fin al Result [facility] Department [place] [address] * (ABNORMAL) Differential, auto (11/19/2024 3:30 PM CDT) Neutrophil abs 4.20 1.50 - 6.50 K/cumm Imm gran abs 0.01 0.00 - 0.10 K/cumm [facility] Lymphocyte abs 1.99 0.80 - 3.30 K/cumm [facility] Monocyte abs 0.82(H) 0.20 - 0.80 K/cumm [facility] Eosinophil abs 0.39 0.00 - 0.50 K/cumm [facility] Basophil abs 0.10 0.00 - 0.10 K/cumm [facility] Neutrophil pct 56.0 % [facility] Comment: Interpretive Data Percent cell count reference ranges are not reported, since discordance with absolute values may lead to misinterpretation of CBC data. Current Interpretive Data was last revised on 2017. Imm gran pct 0.1 % [facility] Comment: Interpretive Data Percent cell count reference ranges are not reported, since discordance with absolute values may lead to misinterpretation of CBC data. Current Interpretive Data was last revised on 2017. Lymphocyte pct 26.5 % [facility] Comment: Interpretive Data Percent cell count reference ranges are not reported, since discordance with absolute values may lead to misinterpretation of CBC data. Current Interpretive Data was last revised on 2017. Monocyte pct 10.9 % [facility] Comment: Interpretive Data Percent cell count reference ranges are not reported, since discordance with absolute values may lead to misinterpretation of CBC data. Current Interpretive Data was last revised on 2017. Eosinophil pct 5.2 % [facility] Comment: Interpretive Data Percent cell count reference ranges are not reported, since discordance with absolute values may lead to misinterpretation of CBC data. Current Interpretive Data was last revised on 2017. Basophil pct 1.3 % [facility] Comment: Interpretive Data Percent cell count reference ranges are not reported, since discordance with absolute values may lead to misinterpretation of CBC data. Current Interpretive Data was last revised on 2017. Blood 11/19/2024 3:30 PM CDT 11/19/2024 7:25 PM CDT Cl Aguiar MD LAB BLOOD ORDERABLES Fin al Result Performing Organization Address [facility] Co de Phone Number [facility] Department [place] [address] * (ABNORMAL) Iron profile w/ IBC (11/19/2024 3:30 PM CDT) [facility] Iron 44 35 - 145 mcg/dL TIBC 429(H) 250 - 400 mcg/dL [facility] Transferrin saturation 10(L) 20 - 50 % [facility] Blood 11/19/2024 3:30 PM CDT 11/19/2024 7:25 PM CDT Cl Aguiar MD LAB BLOOD ORDERABLES Fin al Result Performing Organization Address City/[facility]/ZIP Co de Phone Number [facility] Department [place] [address] * (ABNORMAL) Comprehensive metabolic panel, serum (11/19/2024 3:30 PM CDT) Pathologist [facility] Sodium 142 135 - 145 mmol/L Potassium, sr 5.1 3.6 - 5.2 mmol/L [facility] Chloride 104 97 - 110 mmol/L [facility] CO2 27 22 - 32 mmol/L [facility] Anion gap 11 2 - 15 mmol/L [facility] BUN 17 6 - 25 mg/dL [facility] Creatinine 1.07 0.60 - 1.10 mg/dL [facility] Glucose 213(H) 70 - 199 mg/dL [facility] Comment: Interpretive Data Fasting glucose >/= 126 mg/dl is diagnostic for diabetes. Fasting is defined as no caloric intake for at least 8 hours. Fasting glucose between 100 mg/dl to 125 mg/dl is diagnostic of prediabetes. In a patient with classic symptoms of hyperglycemia or hyperglycemic crisis, a random glucose >/= 200 mg/dl is diagnostic for diabetes. In the absence of unequivocal hyperglycemia, results should be confirmed by repeat testing. The classification and Diagnosis of Diabetes Diabetes Care 202; 46: S19-S40. Current interpretive data was last revised 2022. Calcium 9.6 8.5 - 10.3 mg/dL [facility] Bilirubin, total 0.6 0.1 - 1.2 mg/dL [facility] Protein, sr 7.2 6.2 - 8.2 g/dL [facility] Albumin 4.4 3.5 - 5.0 g/dL [facility] Alk phos 133(H) 40 - 130 Units/L [facility] ALT 20 7 - 45 Units/L [facility] AST 27 10 - 45 Units/L [facility] Blood 11/19/2024 3:30 PM CDT 11/19/2024 7:25 PM CDT us Cl Aguiar MD LAB BLOOD ORDERABLES Fin al Result [facility] Department [place] [address] * (ABNORMAL) CBC with auto differential (11/19/2024 3:30 PM CDT) Pathologist [facility] WBC 7.51 3.80 - 9.90 K/cumm Hgb 10.8(L) 11.9 - 15.5 g/dL [facility] Hct 35.0(L) 35.6 - 45.5 % [facility] Plt 321 150 - 400 K/cumm [facility] MPV 11.4 9.1 - 12.3 fL [facility] RBC 4.24 3.90 - 5.20 M/cumm [facility] MCV 82.5 81.3 - 96.4 fL [facility] MCH 25.5(L) 27.1 - 33.3 pg [facility] MCHC 30.9(L) 32.3 - 35.7 g/dL [facility] RDW CV 18.7(H) 11.1 - 14.9 % [facility] RDW SD 57.1(H) 35.7 - 48.1 fL [facility] NRBC abs 0.00 0.00 - 0.01 K/cumm [facility] Blood 11/19/2024 3:30 PM CDT 11/19/2024 7:25 PM CDT Cl Aguiar MD LAB BLOOD ORDERABLES Fin al Result [facility] Department [place] [address] * (ABNORMAL) POCT hemoglobin A1c (11/19/2024 9:00 AM CDT) Hemoglobin A1C, POC 7.3(A) 4.0 - 5.6 % Capillary blood 11/19/2024 9 :00 AM CDT Cl Aguiar MD POINT OF CARE TEST ORDER KEVIN Final Result * Surgical pathology (10/01/2024 8:13 AM CDT) Tissue specimen (specimen) (Gastric/Stomach biopsy) 10/01/2024 8:13 AM CDT Narrative PATHOLOGY [facility] - 10/02/2024 9:40 AM CDT EPIC results best viewed via link to PDF [facility] Padmini Merino Laboratory [place] [address] Note to Patients: This report may contain [...] Gender: F : 1960 (Age: 64) Address: [address] [place] [id number] [facility] #: [id number] Taken:10/01/2024 Received:10/01/2024 Reported: 10/02/2024 Patient Type: [facility] Service: Gastro Location: Physician(s): MD Lisa Khan., [employer]AT[employer] TECHNICIAN Jaime Forte M.D. Diagnosis: Stomach, biopsy: - Antral mucosa with mild chronic inflammation and reactive epithelial changes - No Helicobacter pylori organisms are identified (H&E) tc/10/02/2024 09:40 By this signature, I attest that the above diagnosis is based upon my personal examination of the slides(and/or other material indicated in the diagnosis). Lorraine Mei M.D., Ph.D. Report Electronically Reviewed and Signed Out By Lorraine Mei M.D., Ph.D. 10/02/2024 09:40:31 History: The patient is a 64-year-old woman presenting for esophagitis and intestinal metaplasia of antrum of stomach without dysplasia. Operative procedure: Upper endoscopy biopsy. Specimen(s) Received: A: Cold biopsies gastric nodular mucosa Gross Description: Received in formalin, labeled with the patient s identifiers and cold biopsies gastric nodular mucosa and consists of multiple casas-pink fragment(s) of soft tissue with an aggregate measurement of 0.7 x 0.4 x 0.1 cm. Labeled A1. Jar 0. [facility]/10/01/2024 10:38 PA(s): Caryn Pires By this signature, I attest that the above diagnosis is based upon my personal examination of the slides(and/or other material). Addenda/Procedures The performance characteristics of some immunohistochemical stains, fluorescence in-situ hybridization tests and immunophenotyping by flow cytometry cited in this report (if any) were determined by the Surgical Pathology and Flow Cytometry Departments at [facility] as part of an ongoing bottle house quality control technician program and in compliance with federally mandated [...] Surgical Pathology and Flow Cytometry Departments of [facility]. It has not been cleared or approved by the U. S. Food and Drug Administration. IMAGES AND SCANNED DOCUMENTS, IF INCLUDED, ONLY VIEWABLE IN PDF VERSION OF REPORT Keira Joyner DO LAB PATHOLOGY ORDERABLES F inal Result PATHOLOGY [facility] 3rd Floor [place], [place] [phone] * EGD (10/01/2024 7:42 AM CDT) Anatomical Region Laterality Modality Other Narrative Procedure Note Keira Joyner, - 10/01/2024 7:42 AM CDT GI ENDOSCOPY [facility] Patient Name: Elyse Lucero Procedure Date: 10/01/2024 7:42 AM Date of : 1960 Admit Type: Outpatient Age: 64 Gender: Female Attending MD: Keira Joyner M.D. Room: [facility] ENDOSCOPY ROOM 4 Note Status: Finalized Procedure: Upper GI endoscopy Indications: Follow-up of reflux esophagitis, Follow-up ofpeptic ulcer, iron deficiency. Referring MD: Jaime Forte M.D., Lisa Blake NP, Cl Aguiar M.D. Providers: Keira Joyner M.D. Medicines: Monitored Anesthesia Care Complications: No [...] were discussed and informed consentwas obtained. The scope was passed under direct vision. The GIF [id number] endoscope was introducedthrough the mouth, and advanced to the second part of duodenum. The upper GI endoscopy was accomplished without difficulty. The patient tolerated the procedure well. Findings: Esophagogastric landmarks were identified: the Z-line was found at 32 cm, the upper extent of the gastric folds was found at 32 cm and the site of hiatal narrowing was found at 40 cm from the incisors. The examined esophagus was normal without evidence of esophagitis or previously noted Landon erosions. An 8 cm hiatal hernia was present. Localized nodular mucosa was found in the gastric antrum likelychanges related to previous clip. Biopsies were taken with a cold forceps for histology. The exam of the stomach was otherwise without abnormality and no evidence of ulcers. The examined duodenum was normal. Impression: - Resolution of previously noted esophagitis and Landon erosions. - Large, 8 cm hiatal hernia. - Nodular mucosa in the gastric antrum at the siteof previously placed clip. Biopsied. - No evidence of ulcers in the stomach. - Normal examined duodenum. Recommendation: - Observe patient in recovery. - Continue present medications. - No ibuprofen, naproxen, or other non-steroidal anti-inflammatory drugs. - Resume eliquis tomorrow. - Await pathology results. - Resume previous diet. - Return to referring physician as previously scheduled. - Recheck iron levels with your primary carephysician (not taking iron at this time). If levels remainlow, may need iron replacement +/- video capsuleendoscopy if they do not correct. - In the unusual situation that you developabdominal, bleeding or other significant problems in the days following this procedure please call [phone] ask for my nurse, Daniel. After hours and evenings please call [phone] and speak to the GI fellowon call. Please tell the fellow that Dr. Joyner didyour procedure and that you were instructed to have the fellow call me or the physician covering for me to discuss the management of your condition. If youhave an urgent problem, please go to the nearestemergency room and have the ER doctor call the transfercenter to arrange admission or transfer to our facility. Please bring this report with you if you go to the emergency room. Attending Participation: I was present and participated during the entire procedure, including non-conti portions. Electronically signed by Keira Joyner MD Keira Joyner M.D. 10/01/2024 8:22:26 AM . Number of Addenda: 0 Note Initiated On: 10/01/2024 7:42 AM us Keira Joyner DO ENDOSCOPY PROCEDURES Final Result * POCT glucose (10/01/2024 7:19 AM CDT) Glucose, POC 165 70 - 199 mg/dL Blood 10/01/2024 7:19 AM CDT 10/01/2024 7:19 AM CDT Keira Joyner DO LAB POCT ORDERABLES - IRLANDA CE Final Result KATHY [facility] María [facility] Department [place] [address] * Colonoscopy (07/13/2024 9:47 AM HEAD FILTER TANK TENDER HELPER) Anatomical Region Laterality Modality Other Narrative Procedure Note Keira Joyner DO - 07/13/2024 9:47 AM CST GI ENDOSCOPY [facility] Patient Name: Elyse Lucero Procedure Date: 07/13/2024 9:47 AM Date of : 1960 Admit Type: Outpatient Age: 64 Gender: Female Attending MD: Keira Joyner M.D. Room: [facility] ENDOSCOPY ROOM 4 Note Status: Finalized [...] The scope was passed under direct vision.The [id number] endoscope was introduced through the anus and advanced to the terminal ileum. The colonoscopy was somewhat difficult due to atortuous colon. The patient tolerated the procedure well.The quality of the bowel preparation was good. Thequality of the bowel preparation was evaluated using theBBPS ([place] Bowel Preparation Scale) with scores of:Right Colon [...] the days following this procedure please call [phone] ask for my nurse, Daniel. After hours and evenings please call [phone] and speak to the GI fellowon call. [...] Joyner DO ENDOSCOPY PROCEDURES Final Result * TSH (06/23/2024 8:09 AM HEAD FILTER TANK TENDER HELPER) TSH 1.80 0.40 - 4.50 mIU/L [facility] 06/23/2024 8:09 AM HEAD FILTER TANK TENDER HELPER 06/23/2024 8:11 AM HEAD FILTER TANK TENDER HELPER Narrative [facility] - 06/25/2024 12:31 PM HEAD FILTER TANK TENDER HELPER FASTING:YES FASTING: YES us Cl Aguiar MD LAB BLOOD ORDERABLES Fin al Result [facility] [address] [address] * Lipid panel (06/23/2024 8:09 AM HEAD FILTER TANK TENDER HELPER) Cholesterol 141 <200 mg/dL [facility] [...] factors. LDL-C is now calculated using the Seng calculation, which is a validated novel method providing better accuracy than the Friedewald equation in the estimation of LDL-C. Isidro SS et al. DIANNA. 2013;310(19): 5705-1761 (http://education.CeQur/faq/PGQ943) Chol/HDL ratio 1.9 <5.0 (calc) [facility] Non-HDL, (LDL+VLDL) 66 <130 mg/dL (calc) [facility] Comment: For patients with diabetes plus 1 major ASCVD risk factor, treating to a non-HDL-C goal of <100 mg/dL (LDL-C of <70 mg/dL) is considered a therapeutic option. 06/23/2024 8:09 AM HEAD FILTER TANK TENDER HELPER 06/23/2024 8:11 AM HEAD FILTER TANK TENDER HELPER Narrative [facility] - 06/25/2024 12:31 PM HEAD FILTER TANK TENDER HELPER FASTING:YES FASTING: YES Cl Aguiar MD LAB BLOOD ORDERABLES Fin al Result SHAHLA Breach [facility] [address] [facility] [place] [address] * Albumin Creatinine Ratio, Urine (06/23/2023 10:39 AM HEAD FILTER TANK TENDER HELPER) Creatinine ur 81.3 Not Estab. mg/dL [facility] - 01 Microalbumin, ur 9.6 Not Estab. ug/mL [facility] - 01 Microalbumin/cre at ratio 12 0 - 29 mg/g creat [facility] - 01 Comment: Normal: 0 - 29 Moderately increased: 30 - 300 Severely increased: >300 Urine 06/23/2023 10:3 9 AM HEAD FILTER TANK TENDER HELPER 06/23/2023 Narrative [facility] - 06/24/2023 9:12 AM HEAD FILTER TANK TENDER HELPER Performed at: 01 - [facility] [address] [id number] Tube Inspector: Russel Brooks PhD, Phone: [phone] us Indu Gandhi FREEZER LABORATORY TECHNICIAN LAB URINE ORDERABLES Fin al Result [facility] - 01 from Last 3 Months or Most Recently Relevant to Health Maintenance Insurance MEDICARE [facility] MEDICARE SUPPLEMENT MEDICARE [facility] MEDICARE SUPPLE[place] CHO[place] [facility] MEDICARE SUPPLEMENT Member Subscriber Plan / Payer (Ef fective 2024-Present) Name:Nic Elyse L Relation to Subscriber:Self Name:Elyse Lucero Payer ID:[id number] Group ID:[id number] Type:COMMERCIAL Address: [address] [place] [id number] MEDICARE Advance Directives For more information, please contact: [phone] * Full Code (Latest Code Status on File) Date Activated Date Inactivated Comments 07/13/2024 8:49 AM 07/13/2024 3:32 PM * Full Code Date Activated Date Inactivated Comments 07/16/2023 8:33 PM 07/27/2023 5:43 PM * Full Code Date Activated Date Inactivated Comments 01/21/2022 12:00 PM 01/22/2022 4:45 AM Care Teams Passenger Service Manager Relationship Specialty Start Date End Date Lisa Blake NP [address] [place] [address] PCP - General Nurse Practitioner 09/25/24
--- OUTSIDE RECORDS SUMMARY | 2024-12-10 11:30 | XMS_ITS | Continuity of Care Document ---
Author Organization [facility] Address [address] [place] [address] Phone Care Team Providers Care Chiropractor Assistant Name Role Phone Jonathan Pa MD Unavailable Unavailable Allergies, Adverse Reactions, Alerts Substance Reaction Status Criticality No Known Allergies Active No Inform ation Medications Medication Instructions Dosage Effective Dates (start - stop) Status Comments Prolia 60 mg/mL subcutaneous syringe inject 1 milliliter by subcutaneous route every 6 months in the upper arm, upper thigh or abdomen 60 MG - Active Vitamin D2 50,000 unit capsule take 1 capsule by oral route 3 times every week 02866 UNITS - Active LOSARTAN POTASSIUM (unknown strength) Not Available - Active CALCIUM (unknown strength) Not Available - Active HUMALOG (unknown strength) Not Available - Active Procedures Procedure Date Office/outpatient visit,est, mod 2016 Dual Energy X-ray Absorptimetry (DXA) Oscar ne Density Assay, parathormone Assay, vitamin D (calcifediol) 17 Assay thyroid stimulating hormone Assay, blood phosphorus Metabolic panel, comprehensive Finger(s) Xray Min 2 Views Postop followup visit Postop followup visit Orthotic(s) Management And Training FO, Proximal Interphalantgeal/distal Int erphalange Finger(s) Xray Min 2 Views Postop followup visit Finger(s) Xray Min 2 Views Postop followup visit Finger(s) Xray Min 2 Views Special Casting Material (Plaster) Arm, Forearm Splint Application, Static Cast Supplies,Short Arm Split,Fiberglass ,Adult Postop followup visit Pre-pay Finger/thumb CRPP Phalangeal Shaft Prox Or Mid FX Fingers PA At Surgery Office/outpatient visit,est, mod 2015 Office/outpatient visit,est, mod 2014 Office/outpatient visit,est, min 2014 Office/outpatient visit,est, mod 2013 X-ray exam of thoracic spine 2 view X-ray exam lower spine 2-[address] Bone Density Office/outpatient visit,est, mod 2013 X-ray exam of foot, complete X-ray exam of foot, complete Treat metatarsal fracture Walking Boot, Pneumatic, With Or Without Joints, W Office/outpatient visit,est, mod 2010 Dual Energy X-ray Absorptimetry (DXA) Oscar ne Density Office/outpatient visit,est, low 2009 Office/outpatient visit,est, low 2009 Office/outpatient visit,est, mod 2009 Dual Energy X-ray Absorptimetry (DXA) Oscar ne Density Office/outpatient visit,est, mod 2008 X-ray exam of wrist, complete 9 Assay, vitamin D (calcifediol) 09 Assay, blood phosphorus Assay serum protein, total Assay, free thyroxine Automated hemogram (CBC) Assay calcium in blood, total 9 Assay alkaline phosphatase RBC sedimentation rate, non-auto 2008 Assay, blood creatinine Assay thyroid stimulating hormone X-ray exam of wrist, complete Nov-16-200 9 X-ray exam of wrist, complete 9 X-ray exam of wrist, complete 9 Application of forearm cast Cast Supplies,Short Arm Cast,Fiber,Adult Office/outpatient visit,new, [facility] 2008 Clsd trtmnt ulnar styloid fracture Cast Supplies,Short Arm Splint,Plaster,A dult Advance Directives Directive Yes / No Effective Date File Name No Information Encounters Encounter Description Practice Location Reason(s) For Visit Diagnoses Date Provider Providers Copied on Encounter [facility], [address] [place] [address], [id number], tel:[phone] [facility] No Information 7 Thierno Castillo. [address] [place] [address], [id number], . tel:[phone] Office/outpa tient visit,est, mod [facility], [address] [place] [address], [id number], tel:[phone] SOA PA General orthopedic (chief complaint)Ost eoporosis (chief complaint) Encounter for screening for osteoporosis Age-related osteoporosis without current pathological fracture Shade Laureano. [address] [place] [address], [id number], . tel:[phone] [facility], [address] [place] [address], [id number], tel:[phone] [facility] No Information 7 Thierno Castillo. [address] [place] [address], [id number], [place]. tel:[phone] Referring Provider: Jonathan Tejada, [address] [place] [address], [id number] . tel:[phone] [facility], [address] [place] [address], [id number], tel:[phone] SOA PA No Information 7 Shade Laureano. [address] [place] [address], [id number], [place]. tel:[phone] Referring Provider: Sridevi Bah, [address] [place], [address] . tel:[phone] [facility], [address] [place] [address], [id number], tel:[phone] [facility] left ring finger (chief complaint) Disp fx of prox phalanx of l rng fngr, 7thD 6 Cesario Good. [address], [place], [id number], [place]. tel:[phone] [facility], [address] [place] [address], [id number], [place] tel:[phone] [facility] No Information 6 Georgette Mckeon. [address], [place], [id number], [place]. tel:[phone] Referring Provider: Florentino Boyd, [address] [place], [address] . tel:[phone] [facility], [address] [place] [address], [id number], [place] tel:[phone] [facility] No Information 6 Cesario Good. [address], [place], [id number], [place]. tel:[phone] Referring Provider: Florentino Boyd, [address] [place], [address] . tel:[phone] [facility], [address] [place] [address], [id number], [place] tel:[phone] SOA PA hand (chief complaint) Disp fx of prox phalanx of l rng fngr, 7thD 6 Fara Arellano. [address], [place], [id number], [place]. tel:[phone] [facility], [address] [place] [address], [id number], [place] tel:[phone] SOA PA hand (chief complaint) Disp fx of prox phalanx of l rng fngr, 7thD 6 [facility]. [address], [place], [id number], . tel:[phone] [facility], [address] [place] [address], [id number], tel:[phone] SOA PA hand (chief complaint) Pain in left finger(s)Dis p fx of prox phalanx of l rng fngr, 7thD 6 Venkatesh Washington. [address], [place], [id number], [place]. tel:[phone] [facility], [address] [place] [address], [id number], tel:[phone] [facility] No Information 6 Cesario Florentino. [address], [place], [id number], [place]. tel:[phone] Office/outpa tient visit,est, mod [facility], [address] [place] [address], [id number], tel:[phone] SOA PA left ring finger (chief complaint) Displaced fracture of proximal phalanx of left ring finger with routine healing, subsequent encounterPal mar fascial fibromatosis [Dupuytren]D isplaced fracture of proximal phalanx of left rin 6 [facility] Adan. [address], [place], [id number], [place]. tel:[phone] Office/outpa tient visit,est, mod [facility], [address] [place] [address], [id number], tel:[phone] [facility] PA finger (chief complaint) Closed displaced fracture of proximal phalanx of left ring finger, initial encounterDup uytren's contracture of left hand 5 Shade Laureano. [address], [place], [id number], [place]. tel:[phone] Office/outpa tient visit,est, min [facility], [address] [place] [address], [id number], tel:[phone] SOA PA Senile Osteoporosis (Postmenopau niraj) 5 Marlena Fran. [address] [place] [address], [id number], . tel:[phone] Office/outpa tient visit,est, mod [facility], [address] [place] [address], [id number], tel:[phone] SOA PA Osteoporosis (chief complaint) Senile Osteoporosis (Postmenopau niraj) 4 Marlena Fran. [address] [place] [address], [id number], . tel:[phone] Office/outpa tient visit,est, mod [facility], [address] [place] [address], [id number], tel:[phone] [facility] Osteoporosis (chief complaint) Senile Osteoporosis (Postmenopau niraj) 4 Jose Peters. [address] [place] [address], [id number], . tel:[phone] [facility], [address] [place] [address], [id number], tel:[phone] [facility] No Information 2 Payam Kimberli. [address] [place] [address], [id number], . tel:[phone] [facility], [address] [place] [address], [id number], tel:[phone] [facility] No Information 2 Payam Kimberli. [address] [place] [address], [id number], . tel:[phone] [facility], [address] [place] [address], [id number], tel:[phone] [facility] No Information 2 Payam Ag. [address] [place] [address], [id number], . tel:[phone] [facility], [address] [place] [address], [id number], tel:[phone] [facility] No Information 2 Virgie Dave. [address] [place] [address], [id number], . tel:[phone] Referring Provider: Tenzin Virgie, [address] [place] [address], [id number] . tel:[phone] Office/outpa tient visit,[facility], [address] [place] [address], [id number], tel:[phone] [facility] No Information 1 Marlena Peters. [address] [place] [address], [id number], . tel:[phone] Referring Provider: Fran De lRosario, [address] [place] [address], [id number] . tel:[phone] Office/outpa tient visit,[facility], [address] [place] [address], [id number], tel:[phone] SOA PA No Information 9-201 0 Segundo Forrest. [address], [place], [id number], [place]. tel:[phone] Office/outpa tient visit,[facility], [address] [place] [address], [id number], tel:[phone] SOA PA No Information 1- 0 Segundo Forrest. [address], [place], [id number], [place]. tel:[phone] Office/outpa tient visit,[facility], [address] [place] [address], [id number], tel:[phone] ANDREW STONE No Information 0-201 0 Ratna Clayton. [address], [place], [id number], . tel:[phone] [facility], [address] [place] [address], [id number], tel:[phone] [facility] No Information 9 Cesario Good. [address] [place] [address], [id number], [place]. tel:[phone] Referring Provider: Folrentino Boyd, [address] [place] [address], [id number] . tel:[phone] Office/outpa tient visit,est, mod [facility], [address] [place] [address], [id number], tel:[phone] [facility] No Information 9 Ertniya Arellano. [address] [place] [address], [id number], . tel:[phone] [facility], [address] [place] [address], [id number], tel:[phone] [facility] No Information 9 Jose Peters. [address] [place] [address], [id number], . tel:[phone] Referring Provider: Fran Del Rosario, [address] [place] [address], [id number] . tel:[phone] [facility], [address] [place] [address], [id number], tel:[phone] [facility] No Information 9 Chamness Elyse. [address] [place] [address], [id number], . tel:[phone] [facility], [address] [place] [address], [id number], tel:[phone] [facility] No Information 200 9 Chamness Elyse. [address] [place], [address], [place]. tel:[phone] [facility], [address] [place] [address], [id number], tel:[phone] [facility] No Information 9 Fara Arellano. [address], [place], [id number], . tel:[phone] Office/outpa tient visit,new, [facility], [address] [place] [address], [id number], tel:[phone] [facility] No Information 9 Fara Arellano. [address], [place], [id number], . tel:[phone] Family History Family Member Type Diagnosis Age At Onset Father Problem (finding) diabetes mellitus type 2 Father Problem (finding) Cardiovascular disease Mother Problem (finding) Cardiovascular disease Mother Problem (finding) Cancer, unknown Immunizations Vaccine Date Status Comments Flu (split) (3 yrs or older) administered Source: Other Provider Payers Payer name Insurance type Covered libertarian ID Authoriza timanuel(s) BCBS Of [facility] [id number] Social History Type Description Quantity Date Captured Comments Sex Female Smoking Status No Information Chief Complaint And Reason For Visit No Information Reason For Referral Reason For Referral No Information Plan Of Treatment Date Type Action Status Referral Ordered: Spine Xray Lumbosacral 2 Or 3 Views ordered Referral Ordered: CT Bone Density ordered Referral Ordered: Spine Xray Thoracic 2 Views ordered Future Order: Radiology Order Oscar ne Density DXA 1 Or More Sites Axial Skeleton ([id number]), Ordered on: Ordered Future Order: Radiology Order Fi nger(s) Xray Min 2 Views ([id number]), Ordered on: Ordered Future Order: Radiology Order Fi nger(s) Xray Min 2 Views ([id number]), Ordered on: Ordered Future Order: Radiology Order Fi nger(s) Xray Min 2 Views ([id number]), Ordered on: Ordered Future Order: Radiology Order Cory duran(s) Xray Min 2 Views ([id number]), Ordered on: Ordered Future Order: Lab Order Vitamin D, 25-Hydroxy ([id number]), Added on: New History Of Present Illness Encounter Date Complaint History Of e nt Illness General orthopedic Elyse Lucero i s a 56 year old female. [facility] of bone mineral density after Forteo use x 2 years.She denies any adverse effects. Fracture history includes left ring finger phalanx fracture, foot fracture. Osteoporosis Onset: 3 years a go. Severity level with respect to fracture risk is moderate-severe. Indications for testing include atraumatic fracture - finger, foot, postmenopausal < 65, monitoring the efficacy of Osteoporosis treatment, female; Forteo x 2 years. Relevant history includes calcium intake (diet), exercise and soda/coffee intake greater than 2/day. Relevant history does not include alcohol intake greater than 2/day, anticonvulsants, family history of hip fracture, family history of osteoporosis, smoking, thyroid replacement or vitamin D intake. Associated symptoms include non-traumatic fracture and HCTZ; T2DM;. Pertinent negatives include delayed menarche, eating disorder, height loss and hormone replacement. Additional information: Drinks 3 servings of caffeine; Hx of Boniva x five year. Menarche age 10; Menopause age 44; no HRT. left ring finger hand hand hand left ring finger finger Osteoporosis Osteoporosis Functional Status Date Functional Assessmen t No Information Instructions Date Instruction Additional Infor domingo Discussed with fermín saxena results of bone density study of osteoporosis. She still may continue to mineralize bone over next several months after completing Forteo. Recommend to start Prolia injections every 6 months to maintain bone growth. Repeat DXA one year. Instructed patient on calcium 1200 mg daily in divided doses to maximize absorption. Vit D3 1000IU daily. Ordered labs today to include CMP, Vit D, TSH, phosphorus and intact PTH. Will call patient with lab results once reviewed. Reviewed bone density health questionnaire with patient. RTC 6 months for recheck. Call if any concerns in the meantime. Related to Age-related osteoporosis without current pathological fracture FOLLOW IN ONE MONTH THERAPY /BRACE MEDICATION ORDERED Related to Disp fx of prox phalanx of l rng fngr, diagnosis and plan d iscussed, OT, fu 1 month Related to Disp fx of prox phalanx of l rng fngr, diagnosis and plan d iscussed, fu 1 weeks Related to Disp fx of prox phalanx of l rng fngr, Keep splint in place . NO use of LUE. F/U 2-3 weeks. Related to Disp fx of prox phalanx of l rng fngr, diagnosis and plan d iscussed, surg scheduled Related to Displaced fracture of proximal phalanx of left ring finger with routine healing, subsequent encounter Patient was educated on the diagnosis and treatment plan. Related to Closed displaced fracture of proximal phalanx of left ring finger, initial encounter Patient was educated on the diagnosis and treatment plan. Related to Senile Osteoporosis (Postmenopausal) Patient was educated on the diagnosis and treatment plan. Related to Senile Osteoporosis (Postmenopausal) Waiting for approval for Forteo Related to Senile Osteoporosis (Postmenopausal) Patient was educated on the diagnosis and treatment plan. Related to Senile Osteoporosis (Postmenopausal) Assessments Type Assessment Date No Information Patient Care Teams Name Effective Dates (start - stop) Status Members No Information
--- OUTSIDE RECORDS SUMMARY | 2024-12-10 11:30 | XMS_ITS | Referral Summary ---
Author Organization [facility] [address] Address [address] [place] [address] Care Team Providers Care Info Print Press Operator Name Role Phone Lisa Blake NP Primary Care Provider Encounters Date Type Department Care Team Description 12/05/2024 Results Follow-Up [facility] 1 [place] [address] Sony Morales MD ECG 12 lead 12/04/2024 8:45 AM CDT Office Visit [facility] Cardiology [facility] Medical Office Building [address] [place] [address] Sony Morales MD Atrial fibrillation with rapid ventricular response (HCC) (Primary Dx); Essential hypertension; Nonrheumatic tricuspid valve regurgitation; Nonrheumatic mitral valve regurgitation 11/23/2024 Results Follow-Up [facility] [address] [facility] 1 [place] [address] Poli Suarez RMA Iron profile w/ IBC, CBC with auto differential, Differential, auto, Additional followed-up results: 2 11/19/2024 3:30 PM CDT - 11/19/2024 11:59 PM CDT Hospital Encounter [facility] [address] [place] [address] Type 1 diabetes mellitus wit h hyperglycemia (HCC); Essential hypertension; Other iron deficiency anemia Discharge Disposition: Discharge to home or self care 11/19/2024 10:00 AM CDT Office Visit [facility] [address] [facility] [address] [place] [address] Cl Aguiar MD Type 1 diabetes mellitus with hyperglycemia (HCC) (Primary Dx); Essential hypertension; Other iron deficiency anemia 10/03/2024 Results Follow-Up [facility] Gastroenterolog y [address] [facility] 12th [place] [address] [place] [address] Keira Joyner DO Surgical pathology 10/01/2024 8:00 AM CDT - 10/01/2024 8:30 AM CDT Surgery [facility] [address] [place] [address] Keira Joyner DO ESOPHAGOGASTRODUODENOSCOPY BIOPSY 10/01/2024 8:01 AM CDT Anesthesia Event [facility] [address] [facility] [address] [place] [address] Haris Quintana MD 10/01/2024 6:47 AM CDT - 10/01/2024 8:55 AM CDT Hospital Encounter [facility] [address] [place] [address] Keira Joyner DO Esophagitis; Intestinal metaplasia of antrum of stomach without dysplasia Discharge Disposition: Discharge to home or self care 09/24/2024 Telephone [facility]ATED [facility] Specialty Services [address] [place] [address] Anya Wang RN GI Preprocedure from Last 3 Months Allergies No known [...] by mouth daily 90 tablet 3 12/05/19 026 Active rosuvastatin (CRESTOR) 10 mg tablet Take 1 tablet (10 mg total) by mouth daily 90 tablet 3 12/05/19 25 026 Active apixaban (Eliquis) 5 mg tablet Take 1 tablet (5 mg total) by mouth 2 (two) times a day 180 tablet 3 12/05/19 026 Active ascorbic acid (VITAMIN C) 500 [...] 07/16/2023 Assessment & Plan (07/25/2023 4:02 PM VINYL FLOORING INSTALLER): S/p R wrist fixation 07/14 (fracture from mechanical fall) - Ortho follow up (in [place], [place]) scheduled 07/28/23. Remains NWB RUE - PT/OT consulted - APAP, oxy prn. Miralax prn Atrial fibrillation with rapid ventricular respo nse 05/11/2022 Assessment & Plan (07/26/2023 1:02 PM VINYL FLOORING INSTALLER): SVT to 190s likely from not tolerating [...] 2h from 3h & loosen IR from [id number] to 1:6 from 1:5, will review in 1 week, may need further ICR adjustment Discussed trying to start bolus 5-10 min prior to intake given occasional post-hypoglycemic events Labs 06/2024 Will schedule eye exam Assessment & Plan (06/23/2023 10:25 AM VINYL FLOORING INSTALLER): A1C 8.2% Has back up basal pen, [...] how glucose changes postprandially To meet with YOJANA PenaE later today Essential hypertension 06/12/2020 Overview (06/12/2020): Same meds Assessment & Plan (07/25/2023 12:47 PM VINYL FLOORING INSTALLER): BP as low as 80/40s but likely from dehydration d/t DKA vs AFRVR and now resolved. BP been stable - c/w home lasix 20 Mild intermittent asthma 06/12/2020 Overview (06/12/2020): Per primary Resolved Problems Problem Noted Date Diagnosed Date Resolved Date Neck pain 07/26/2023 09/27/2023 Assessment & Plan (07/27/2023 9:40 AM VINYL FLOORING INSTALLER): R neck pain following DCCV on 07/26. [...] 24 Assessment & Plan (07/18/2023 10:27 AM VINYL FLOORING INSTALLER): UA obtained d/t DKA with 2+ LE, [...] 09/27/2023 Assessment & Plan (07/26/2023 1:03 PM VINYL FLOORING INSTALLER): P/w DKA: BG 580, AG 22, bicarb [...] on file Legal Sex Female 3:31 AM VINYL FLOORING INSTALLER Gender Identity Not on file Sexual Orientation [...] 12/04/2024 8:57 AM CDT Plan of Treatment Not on file Procedures Procedure Name Priority Date/Time Associated Diagnosis [...] 7:19 AM CDT COLONOSCOPY 07/13/2024 9:47 AM VINYL FLOORING INSTALLER LIPID PANEL Routine 06/23/2024 8:09 AM VINYL FLOORING INSTALLER TSH Routine 06/23/2024 8:09 AM VINYL FLOORING INSTALLER ALBUMIN CREATININE RATIO, URINE Routine 06/23/2023 10:39 AM VINYL FLOORING INSTALLER Type 1 diabetes mellitus with hyperglycemia (HCC) from Last 3 Months or Most Recently Relevant to Health Maintenance Results * ECG 12 lead (12/04/2024 9:06 AM CDT) Sony Morales MD ECG ORDERABLES Ai l [...] Inclusion of Race in Diagnosing Kidney Disease, ELLIOTSAlexia 2020). The CKD-EPI equation should not be used for patients with unstable renal function and has not been validated in children and those over 70. Current interpretive data was last reviewed 2021. Blood 11/19/2024 3:30 PM CDT 11/19/2024 7:46 PM CDT us Cl Aguiar MD LAB BLOOD ORDERABLES Fin al Result [facility] [place] [address] * (ABNORMAL) Differential, auto (11/19/2024 3:30 PM CDT) Neutrophil abs 4.20 1.50 - 6.50 K/cumm Imm gran abs 0.01 0.00 - 0.10 K/cumm [facility] Lymphocyte abs 1.99 0.80 - 3.30 K/cumm [facility] Monocyte abs 0.82(H) 0.20 - 0.80 K/cumm [facility] Eosinophil abs 0.39 0.00 - 0.50 K/cumm [facility] Basophil abs 0.10 0.00 - 0.10 K/cumm [facility] Neutrophil pct 56.0 % [facility] Comment: Interpretive Data Percent cell count reference ranges are not reported, since discordance with absolute values may lead to misinterpretation of CBC data. Current Interpretive Data was last revised on 2017. Imm gran pct 0.1 % [facility] Comment: Interpretive Data Percent cell count reference ranges are not reported, since discordance with absolute values may lead to misinterpretation of CBC data. Current Interpretive Data was last revised on 2017. Lymphocyte pct 26.5 % [facility] Comment: Interpretive Data Percent cell count reference ranges are not reported, since discordance with absolute values may lead to misinterpretation of CBC data. Current Interpretive Data was last revised on 2017. Monocyte pct 10.9 % [facility] Comment: Interpretive Data Percent cell count reference ranges are not reported, since discordance with absolute values may lead to misinterpretation of CBC data. Current Interpretive Data was last revised on 2017. Eosinophil pct 5.2 % [facility] Comment: Interpretive Data Percent cell count reference ranges are not reported, since discordance with absolute values may lead to misinterpretation of CBC data. Current Interpretive Data was last revised on 2017. Basophil pct 1.3 % [facility] Comment: Interpretive Data Percent cell count reference ranges are not reported, since discordance with absolute values may lead to misinterpretation of CBC data. Current Interpretive Data was last revised on 2017. Blood 11/19/2024 3:30 PM CDT 11/19/2024 7:25 PM CDT Cl Aguiar MD LAB BLOOD ORDERABLES Fin al Result Performing Organization Address [facility]/ZIP Co de Phone Number [facility] Department [place] [address] * (ABNORMAL) Iron profile w/ IBC (11/19/2024 3:30 PM CDT) Pathologist [facility] Iron 44 35 - 145 mcg/dL TIBC 429(H) 250 - 400 mcg/dL [facility] Transferrin saturation 10(L) 20 - 50 % [facility] Blood 11/19/2024 3:30 PM CDT 11/19/2024 7:25 PM CDT Cl Aguiar MD LAB BLOOD ORDERABLES Fin al Result Performing Organization Address City/[facility]/ZIP Co de Phone Number [facility] [place] [address] * (ABNORMAL) Comprehensive metabolic panel, serum (11/19/2024 3:30 PM CDT) Sodium 142 135 - 145 mmol/L Potassium, sr 5.1 3.6 - 5.2 mmol/L [facility] Chloride 104 97 - 110 mmol/L [facility] CO2 27 22 - 32 mmol/L [facility] Anion gap 11 2 - 15 mmol/L [facility] BUN 17 6 - 25 mg/dL [facility] Creatinine 1.07 0.60 - 1.10 mg/dL [facility] Glucose 213(H) 70 - 199 mg/dL [facility] Comment: Interpretive Data Fasting glucose >/= 126 [...] classification and Diagnosis of Diabetes Diabetes Care 2021; 46: S19-S40. Current interpretive data was last revised 2022. Calcium 9.6 8.5 - 10.3 mg/dL [facility] Bilirubin, total 0.6 0.1 - 1.2 mg/dL [facility] Protein, sr 7.2 6.2 - 8.2 g/dL [facility] Albumin 4.4 3.5 - 5.0 g/dL [facility] Alk phos 133(H) 40 - 130 Units/L [facility] ALT 20 7 - 45 Units/L [facility] AST 27 10 - 45 Units/L [facility] Blood 11/19/2024 3:30 PM CDT 11/19/2024 7:25 PM CDT us Cl Aguiar MD LAB BLOOD ORDERABLES Fin al Result [facility] Department of Laboratories [place], [place] [id number] * (ABNORMAL) CBC with auto differential (11/19/2024 3:30 PM CDT) [facility] WBC 7.51 3.80 - 9.90 K/cumm Hgb 10.8(L) 11.9 - 15.5 g/dL [facility] Hct 35.0(L) 35.6 - 45.5 % [facility] Plt 321 150 - 400 K/cumm [facility] MPV 11.4 9.1 - 12.3 fL [facility] RBC 4.24 3.90 - 5.20 M/cumm [facility] MCV 82.5 81.3 - 96.4 fL [facility] MCH 25.5(L) 27.1 - 33.3 pg [facility] MCHC 30.9(L) 32.3 - 35.7 g/dL [facility] RDW CV 18.7(H) 11.1 - 14.9 % [facility] RDW SD 57.1(H) 35.7 - 48.1 fL [facility] NRBC abs 0.00 0.00 - 0.01 K/cumm [facility] Blood 11/19/2024 3:30 PM CDT 11/19/2024 7:25 PM CDT Cl Aguiar MD LAB BLOOD ORDERABLES Fin al Result [facility] Department [place] [address] * (ABNORMAL) POCT hemoglobin A1c (11/19/2024 9:00 AM CDT) Hemoglobin A1C, POC 7.3(A) 4.0 - 5.6 % Capillary blood 11/19/2024 9 :00 AM CDT Cl Aguiar MD POINT OF CARE TEST ORDER KEVIN Final Result * Surgical pathology (10/01/2024 8:13 AM CDT) Tissue specimen (specimen) (Gastric/Stomach biopsy) 10/01/2024 8:13 AM CDT Narrative PATHOLOGY LOCATED [facility] - 10/02/2024 9:40 AM CDT EPIC results best viewed via link to PDF [facility] [place] [address] Note to Patients: This report may contain [...] Gender: F : 1960 (Age: 64) Address: [address] [place] [address] Hospital #: [id number] Taken:10/01/2024 Received:10/01/2024 Reported: 10/02/2024 Patient Type: [facility] Service: Gastro Location: Physician(s): MD Lisa Khan., MELVIN Forte M.D. Diagnosis: Stomach, biopsy: - Antral mucosa with mild chronic inflammation and reactive epithelial changes - No Helicobacter pylori organisms are identified (H&E) tcl/10/02/2024 09:40 By this signature, I attest that [...] x 0.1 cm. Labeled A1. Jar 0. [facility]/10/01/2024 10:38 PA(s): Caryn Pires By this signature, I attest that the above diagnosis is based upon my personal examination of the slides(and/or other material). Addenda/Procedures The performance characteristics of some immunohistochemical stains, fluorescence in-situ hybridization tests and immunophenotyping by flow cytometry cited in this report (if any) were determined by the Surgical Pathology and Flow Cytometry Departments at [facility] as part of an ongoing quality technician fiberglass program and in compliance with federally mandated [...] Surgical Pathology and Flow Cytometry Departments of [facility]. It has not been cleared or approved by the U. S. Food and Drug Administration. IMAGES AND SCANNED DOCUMENTS, IF INCLUDED, ONLY VIEWABLE IN PDF VERSION OF REPORT Keira Joyner DO LAB PATHOLOGY ORDERABLES F inal Result PATHOLOGY [facility] 3rd Floor [place], [place] [phone] * EGD (10/01/2024 7:42 AM CDT) Anatomical Region Laterality Modality Other Narrative Procedure Note Keira Joyner, - 10/01/2024 7:42 AM CDT GI ENDOSCOPY [facility] Patient Name: Elyse Lucero Procedure Date: 10/01/2024 7:42 AM Date of : 1960 Admit Type: Outpatient Age: 64 Gender: Female Attending MD: Keira Joyner M.D. Room: [facility] ENDOSCOPY ROOM 4 Note Status: Finalized Procedure: [...] passed under direct vision. The [id number] endoscope was introducedthrough the mouth, and advanced [...] the days following this procedure please call [phone] ask for my nurse, Daniel. After hours and evenings please call [phone] and speak to the GI fellowon call. Please tell the fellow that Dr. Joyner didyour procedure and that you were instructed to have the fellow call me or the physician covering for me to discuss the management of your condition. If youhave an urgent problem, [facility] and have the ER doctor call [...] 7:19 AM CDT 10/01/2024 7:19 AM CDT us Keria Joyner DO LAB POCT ORDERABLES - IRLANDA CE Final Result [facility] [place] [address] * Colonoscopy (07/13/2024 9:47 AM VINYL FLOORING INSTALLER) Anatomical Region Laterality Modality Other Narrative Procedure Note Keira Joyner, - 07/13/2024 9:47 AM CST GI ENDOSCOPY [facility] Patient Name: Elyse Lucero Procedure Date: 07/13/2024 9:47 AM Date of : 1960 Admit Type: Outpatient Age: 64 Gender: Female Attending MD: Keira Joyner M.D. Room: [facility] ENDOSCOPY ROOM 4 Note Status: Finalized Procedure: [...] The scope was passed under direct vision.The CF [id number] endoscope was introduced through the anus and advanced to the terminal ileum. The colonoscopy was somewhat difficult due to atortuous colon. The patient tolerated the procedure well.The quality of the bowel preparation was good. Thequality of the bowel preparation was evaluated using theBBPS ([place] Bowel Preparation Scale) with scores of:Right Colon [...] the days following this procedure please call [phone] ask for my nurse, Daniel. After hours and evenings please call [phone] and speak to the GI fellowon call. [...] Final Result * TSH (06/23/2024 8:09 AM VINYL FLOORING INSTALLER) TSH 1.80 0.40 - 4.50 mIU/L [facility] 06/23/2024 8:09 AM VINYL FLOORING INSTALLER 06/23/2024 8:11 AM VINYL FLOORING INSTALLER Narrative [facility] - 06/25/2024 12:31 PM VINYL FLOORING INSTALLER FASTING:YES FASTING: YES Cl Aguiar MD LAB BLOOD ORDERABLES Fin al Result [email or web address] [address] [facility] [place] [address] * Lipid panel (06/23/2024 8:09 AM VINYL FLOORING INSTALLER) Cholesterol 141 <200 mg/dL [facility] [...] LDL-C. Isidro SAHNI et al. DIANNA. 2013;310(19): 8921-0850 (http://education.edo/faq/OEN126) Chol/HDL ratio 1.9 <5.0 (calc) [facility] Non-HDL, (LDL+VLDL) 66 <130 mg/dL (calc) [facility] Comment: For patients with diabetes plus 1 major ASCVD risk factor, treating to a non-HDL-C goal of <100 mg/dL (LDL-C of <70 mg/dL) is considered a therapeutic option. 06/23/2024 8:09 AM VINYL FLOORING INSTALLER 06/23/2024 8:11 AM VINYL FLOORING INSTALLER Narrative [facility] - 06/25/2024 12:31 PM VINYL FLOORING INSTALLER FASTING:YES FASTING: YES Cl Aguiar MD LAB BLOOD ORDERABLES Fin al Result Performing Organization Address [facility] Co de Phone Number [facility] [address] [address] [address] * Albumin Creatinine Ratio, Urine (06/23/2023 10:39 AM VINYL FLOORING INSTALLER) Creatinine ur 81.3 Not Estab. mg/dL [facility] - 01 Microalbumin, ur 9.6 Not Estab. ug/mL [facility] - 01 Microalbumin/cre at ratio 12 0 - 29 mg/g creat [facility] - 01 Comment: Normal: 0 - 29 Moderately increased: 30 - 300 Severely increased: >300 Urine 06/23/2023 10:3 9 AM VINYL FLOORING INSTALLER 06/23/2023 Narrative [facility] - 06/24/2023 9:12 AM VINYL FLOORING INSTALLER Performed at: 01 - [facility] [address] [id number] [employer] Machine Operator: Russel Brooks PhD, Phone: [phone] Indu Gandhi NP LAB URINE ORDERABLES Fin al Result [facility] from Last 3 Months or Most Recently Relevant to Health Maintenance Insurance MEDICARE [facility] MEDICARE SUPPLEMENT MEDICARE [facility] MEDICARE SUPPLEMENT [facility] [place] [facility] MEDICARE SUPPLEMENT MEDICARE Advance Directives For more information, please contact: [phone] * Full Code (Latest Code Status on File) Date Activated Date Inactivated Comments 07/13/2024 8:49 AM 07/13/2024 3:32 PM * Full Code Date Activated Date Inactivated Comments 07/16/2023 8:33 PM 07/27/2023 5:43 PM * Full Code Date Activated Date Inactivated Comments 01/21/2022 12:00 PM 01/22/2022 4:45 AM Care Teams Info Print Press Operator Relationship Specialty Start Date End Date Lisa Blake NP [address] [facility] [address] [place] [address] PCP - General Nurse Practitioner 09/25/24
--- OUTSIDE RECORDS SUMMARY | 2024-12-10 11:30 | XMS_ITS | Continuity of Care Document ---
Author Organization [employer] Address [address] [place] [address] Phone Care Team Providers Care Crab Picker Name Role Phone [employer] [facility] Unavailable Unavailable Procedures Procedure Date WHO, Wrist Extension Control Cock-up, No nmolded, P Advance Directives Directive Yes / No Effective Date File Name No Information Encounters Encounter Description Practice Location Reason(s) For Visit Diagnoses Date Provider Providers Copied on Encounter [facility], [address], [place], [address], [place] tel:[phone] [facility] Orthopedic [facility] No Information 3 [address] [employer]. [address], [place], [address], [place]. tel:[phone] Referring Provider: Florentino Boyd, [address] [place] [address], [address] . tel:[phone] Family History Family Member Type Diagnosis Age At Onset No Information Payers Payer name Insurance type Covered constitution party ID Authoriza tion(s) No Information Social History Type Description Quantity Date Captured Comments Sex Female Smoking Status No Information Chief Complaint And Reason For Visit No Information Reason For Referral Reason For Referral No Information History Of Present Illness Encounter Date Complaint History Of Prese nt Illness No Information Functional Status Date Functional Assessmen t No Information Instructions Date Instruction Additional Infor mation No Information Assessments Type Assessment Date No Information Patient Care Teams Name Effective Dates (start - stop) Status Members No Information
--- OUTSIDE RECORDS SUMMARY | 2024-12-10 11:30 | XMS_ITS | Encounter Summary ---
Author Organization [facility] Healthcare Address [address] [place] [address] Care Team Providers Care Command And Control Officer Name Role Phone Lisa Blake NP Primary Care Provider Encounter Details Date Type Department Care Team (Late st Contact Info) Description 12/05/2024 Results Follow-Up [facility] [address] [place] [address] Sony Morales MD [address] [id number] ECG 12 lead Social History Tobacco Use Types Packs/Day Years [...] on file Legal Sex Female 3:31 AM SECOND WORKER Gender Identity Not on file Sexual Orientation Not on file documented as of this encounter Plan of Treatment Not on file documented as of this encounter Visit Diagnoses Not on filedocumented in this encounter Care Teams Command And Control Officer Relationship Specialty Start Date End Date Lisa Blake NP [address] [facility] [address] [place] [address] PCP - General Nurse Practitioner 09/25/24 documented as of this encounter
--- NOTE | 2024-12-10 12:12 | PC.NURSE ---
EDp Roseanna Stone made aware pt refused xrays without pain medicine
[2024-12-10] MEDS: ONDANSETRON INJ 4 MG/2 ML VIAL IV PUSH (12:20)
[2024-12-10] MEDS: MORPHINE SULFATE (*CRX) 4 MG/ML INJ IV PUSH ×2 (12:23→17:39)
--- OUTSIDE RECORDS SUMMARY | 2024-12-10 12:34 | XMS_ITS | Continuity of Care Document ---
Author Organization [facility] Address [address] [place] [address] Phone Care Team Providers Care Billing Spec Name Role Phone [facility] Unavailable Unavailable Procedures Procedure Date WHO, Wrist Extension Control Cock-up, No nmolded, P Advance Directives Directive Yes / No Effective Date File Name No Information Encounters Encounter Description Practice Location Reason(s) For Visit Diagnoses Date Provider Providers Copied on Encounter [facility], [address], [place], [address], [place] tel:[phone] [facility] Orthopedic [facility] No Information 3 9 [employer]. [address], [place], [address], [place]. tel:[phone] Referring Provider: Florentino Boyd, [address] [place] [address], [address] . tel:[phone] Family History Family Member Type Diagnosis Age At Onset No Information Payers Payer name Insurance type Covered libertarian ID Authoriza tion(s) No Information Social History [...]
--- OUTSIDE RECORDS SUMMARY | 2024-12-10 12:34 | XMS_ITS | Referral Summary ---
Author Organization [facility] [address] Address [address] [place] [address] Care Team Providers Care Paper And Prints Restorer Name Role Phone Lisa Blake NP Primary Care Provider Encounters Date Type Department Care Team Description 12/05/2024 Results Follow-Up [facility] [address] [place] [address] Sony Morales MD ECG 12 lead 12/04/2024 8:45 AM CDT Office Visit [facility] Cardiology [facility] [employer] [address] [place] [address] Sony Morales MD Atrial fibrillation with rapid ventricular response (HCC) (Primary Dx); Essential hypertension; Nonrheumatic tricuspid valve regurgitation; Nonrheumatic mitral valve regurgitation 11/23/2024 Results Follow-Up [facility] [address] [facility] 1 [place] [address] Poli Suarez RMA Iron profile w/ IBC, CBC with auto differential, Differential, auto, Additional followed-up results: 2 11/19/2024 3:30 PM CDT - 11/19/2024 11:59 PM CDT Hospital Encounter [facility] [address] [place] [address] Type 1 diabetes mellitus wit h hyperglycemia (HCC); Essential hypertension; Other iron deficiency anemia Discharge Disposition: Discharge to home or self care 11/19/2024 10:00 AM CDT Office Visit [facility] [place] [facility] [address] [facility] [address] [place] [phone] Cl Aguiar MD Type 1 diabetes mellitus with hyperglycemia (HCC) (Primary Dx); Essential hypertension; Other iron deficiency anemia 10/03/2024 Results Follow-Up [facility] Gastroenterolog y [address] [facility] Advanced Medicine 12th [place] [address] [place] [address] Keira Joyner DO Surgical pathology 10/01/2024 8:00 AM CDT - 10/01/2024 8:30 AM CDT Surgery [facility] [address] [facility] [address] [place] [address] Keira Joyner DO ESOPHAGOGASTRODUODENOSCOPY BIOPSY 10/01/2024 8:01 AM CDT Anesthesia Event [facility] [place] [address] [facility] [address] [place] [address] Haris Quintana MD 10/01/2024 6:47 AM CDT - 10/01/2024 8:55 AM CDT Hospital Encounter [facility] [address] [facility] [address] [place] [address] Keira Joyner DO Esophagitis; Intestinal metaplasia of antrum of stomach without dysplasia Discharge Disposition: Discharge to home or self care 09/24/[address] [facility] Specialty Services [address] [place] [address] Anya Wang RN GI Preprocedure from Last [...] 07/16/2023 Assessment & Plan (07/25/2023 4:02 PM INVESTMENT DIRECTOR): S/p R wrist fixation 07/14 (fracture from mechanical fall) - Ortho follow up (in [place], [place]) scheduled 07/28/23. Remains NWB RUE - PT/OT consulted - APAP, oxy prn. Miralax prn Atrial fibrillation with rapid ventricular respo nse 05/11/2022 Assessment & Plan (07/26/2023 1:02 PM INVESTMENT DIRECTOR): SVT to 190s likely from not tolerating [...] 2h from 3h & loosen IR from 8760-3690 to 1:6 from 1:5, will review in 1 week, may need further ICR adjustment Discussed trying to start bolus 5-10 min prior to intake given occasional post-hypoglycemic events Labs 06/2024 Will schedule eye exam Assessment & Plan (06/23/2023 10:25 AM INVESTMENT DIRECTOR): A1C 8.2% Has back up basal pen, [...] meds Assessment & Plan (07/25/2023 12:47 PM INVESTMENT DIRECTOR): BP as low as 80/40s but likely from dehydration d/t DKA vs AFRVR and now resolved. BP been stable - c/w home lasix 20 Mild intermittent asthma 06/12/2020 Overview (06/12/2020): Per primary Resolved Problems Problem Noted Date Diagnosed Date Resolved Date Neck pain 07/26/2023 09/27/2023 Assessment & Plan (07/27/2023 9:40 AM INVESTMENT DIRECTOR): R neck pain following DCCV on 07/26. [...] 24 Assessment & Plan (07/18/2023 10:27 AM INVESTMENT DIRECTOR): UA obtained d/t DKA with 2+ LE, [...] 09/27/2023 Assessment & Plan (07/26/2023 1:03 PM INVESTMENT DIRECTOR): P/w DKA: BG 580, AG 22, bicarb [...] on file Legal Sex Female 3:31 AM INVESTMENT DIRECTOR Gender Identity Not on file Sexual Orientation [...] 7:19 AM CDT COLONOSCOPY 07/13/2024 9:47 AM INVESTMENT DIRECTOR LIPID PANEL Routine 06/23/2024 8:09 AM INVESTMENT DIRECTOR TSH Routine 06/23/2024 8:09 AM INVESTMENT DIRECTOR ALBUMIN CREATININE RATIO, URINE Routine 06/23/2023 10:39 AM INVESTMENT DIRECTOR Type 1 diabetes mellitus with hyperglycemia (HCC) [...] MD LAB BLOOD ORDERABLES Fin al Result [facility] [place] [address] * (ABNORMAL) Differential, auto (11/19/2024 3:30 PM CDT) Neutrophil abs 4.20 1.50 - 6.50 K/cumm Imm gran abs 0.01 0.00 - 0.10 K/cumm [facility] Lymphocyte abs 1.99 0.80 - 3.30 K/cumm [facility] Monocyte abs 0.82(H) 0.20 - 0.80 K/cumm [facility] Eosinophil abs 0.39 0.00 - 0.50 K/cumm [facility] Basophil abs 0.10 0.00 - 0.10 K/cumm [facility] Neutrophil pct 56.0 % [facility] Comment: Interpretive Data Percent cell count reference ranges are not reported, since discordance with absolute values may lead to misinterpretation of CBC data. Current Interpretive Data was last revised on 2017. Imm gran pct 0.1 % [facility] Comment: Interpretive Data Percent cell count reference ranges are not reported, since discordance with absolute values may lead to misinterpretation of CBC data. Current Interpretive Data was last revised on 2017. Lymphocyte pct 26.5 % [facility] Comment: Interpretive Data Percent cell count reference ranges are not reported, since discordance with absolute values may lead to misinterpretation of CBC data. Current Interpretive Data was last revised on 2017. Monocyte pct 10.9 % [facility] Comment: Interpretive Data Percent cell count reference ranges are not reported, since discordance with absolute values may lead to misinterpretation of CBC data. Current Interpretive Data was last revised on 2017. Eosinophil pct 5.2 % [facility] Comment: Interpretive Data Percent cell count reference ranges are not reported, since discordance with absolute values may lead to misinterpretation of CBC data. Current Interpretive Data was last revised on 2017. Basophil pct 1.3 % [facility] Comment: Interpretive Data Percent cell count reference ranges are not reported, since discordance with absolute values may lead to misinterpretation of CBC data. Current Interpretive Data was last revised on 2017. Blood 11/19/2024 3:30 PM CDT 11/19/2024 7:25 PM CDT Cl Aguiar MD LAB BLOOD ORDERABLES Fin al Result Performing Organization Address [facility]/ZIP Co de Phone Number [facility] [place] [address] * (ABNORMAL) Iron profile w/ IBC (11/19/2024 3:30 PM CDT) Pathologist [facility] Iron 44 35 - 145 mcg/dL TIBC 429(H) 250 - 400 mcg/dL [facility] Transferrin saturation 10(L) 20 - 50 % [facility] Blood 11/19/2024 3:30 PM CDT 11/19/2024 7:25 PM CDT Cl Aguiar MD LAB BLOOD ORDERABLES Fin al Result Performing Organization Address City/[facility]/ZIP Co de Phone Number [facility] [place] [address] * (ABNORMAL) Comprehensive metabolic panel, serum (11/19/2024 3:30 PM CDT) Sodium 142 135 - 145 mmol/L Potassium, sr 5.1 3.6 - 5.2 mmol/L [facility] Chloride 104 97 - 110 mmol/L [facility] CO2 27 22 - 32 mmol/L [facility] Anion gap 11 2 - 15 mmol/L [facility] BUN 17 6 - 25 mg/dL [facility] Creatinine 1.07 0.60 - 1.10 mg/dL [facility] Glucose 213(H) 70 - 199 mg/dL [facility] Comment: Interpretive Data Fasting glucose >/= 126 [...] 2022. Calcium 9.6 8.5 - 10.3 mg/dL [facility] Bilirubin, total 0.6 0.1 - 1.2 mg/dL [facility] Protein, sr 7.2 6.2 - 8.2 g/dL [facility] Albumin 4.4 3.5 - 5.0 g/dL [facility] Alk phos 133(H) 40 - 130 Units/L [facility] ALT 20 7 - 45 Units/L [facility] AST 27 10 - 45 Units/L [facility] Blood 11/19/2024 3:30 PM CDT 11/19/2024 7:25 PM CDT us Cl Aguiar MD LAB BLOOD ORDERABLES Fin al Result [facility] Department of Laboratories [place], [place] [id number] * (ABNORMAL) CBC with auto differential (11/19/2024 3:30 PM CDT) [facility] WBC 7.51 3.80 - 9.90 K/cumm Hgb 10.8(L) 11.9 - 15.5 g/dL [facility] Hct 35.0(L) 35.6 - 45.5 % [facility] Plt 321 150 - 400 K/cumm [facility] MPV 11.4 9.1 - 12.3 fL [facility] RBC 4.24 3.90 - 5.20 M/cumm [facility] MCV 82.5 81.3 - 96.4 fL [facility] MCH 25.5(L) 27.1 - 33.3 pg [facility] MCHC 30.9(L) 32.3 - 35.7 g/dL [facility] RDW CV 18.7(H) 11.1 - 14.9 % [facility] RDW SD 57.1(H) 35.7 - 48.1 fL [facility] NRBC abs 0.00 0.00 - 0.01 K/cumm [facility] Blood 11/19/2024 3:30 PM CDT 11/19/2024 7:25 PM CDT Cl Aguiar MD LAB BLOOD ORDERABLES Fin al Result [facility] [place] [address] * (ABNORMAL) POCT hemoglobin A1c (11/19/2024 9:00 AM CDT) Hemoglobin A1C, POC 7.3(A) 4.0 - 5.6 % Capillary blood 11/19/2024 9 :00 AM CDT Cl Aguiar MD POINT OF CARE TEST ORDER KEVIN Final Result * Surgical pathology (10/01/2024 8:13 AM CDT) Tissue specimen (specimen) (Gastric/Stomach biopsy) 10/01/2024 8:13 AM CDT Narrative PATHOLOGY [facility] - 10/02/2024 9:40 AM CDT EPIC results best viewed via link to PDF [facility] Padmini Merino Laboratory [place] [address] Note to Patients: This report may contain [...] Gender: F : 1960 (Age: 64) Address: [address] [place] [id number] Hospital #: [id number] Taken:10/01/2024 Received:10/01/2024 Reported: 10/02/2024 Patient Type: [facility] Service: Gastro Location: Physician(s): MD Lisa Khan., [...] x 0.1 cm. Labeled A1. Jar 0. [facility]/10/01/2024 10:38 PA(s): Caryn Pires By this signature, I attest that the above diagnosis is based upon my personal examination of the slides(and/or other material). Addenda/Procedures The performance characteristics of some immunohistochemical stains, fluorescence in-situ hybridization tests and immunophenotyping by flow cytometry cited in this report (if any) were determined by the Surgical Pathology and Flow Cytometry Departments at [facility] as part of an ongoing quality control assessor program and in compliance with federally mandated [...] Surgical Pathology and Flow Cytometry Departments of [facility]. It has not been cleared or approved by the U. S. Food and Drug Administration. IMAGES AND SCANNED DOCUMENTS, IF INCLUDED, ONLY VIEWABLE IN PDF VERSION OF REPORT Keira Joyner DO LAB PATHOLOGY ORDERABLES F inal Result PATHOLOGY [facility] 3rd Floor [place], [place] [phone] * EGD (10/01/2024 7:42 AM CDT) Anatomical Region Laterality Modality Other Narrative Procedure Note Keira Joyner, - 10/01/2024 7:42 AM CDT GI ENDOSCOPY [facility] Patient Name: Elyse Lucero Procedure Date: 10/01/2024 7:42 AM Date of : 1960 Admit Type: Outpatient Age: 64 Gender: Female Attending MD: Keira Joyner M.D. Room: [facility] ENDOSCOPY ROOM 4 Note Status: Finalized [...] passed under direct vision. The GIF [id number] endoscope was introducedthrough the mouth, and advanced [...] the days following this procedure please call [phone] ask for my nurse, Daniel. After hours and evenings please call [phone] and speak to the GI fellowon call. Please tell the fellow that Dr. Joyner didyour procedure and that you were instructed to have the fellow call me or the physician covering for me to discuss the management of your condition. If youhave an urgent problem, [facility] and have the ER doctor call [...] AM CDT 10/01/2024 7:19 AM CDT us Keira Joyner DO LAB POCT ORDERABLES - IRLANDA CE Final Result [facility]ATHY [facility] [place] [address] * Colonoscopy (07/13/2024 9:47 AM INVESTMENT DIRECTOR) Anatomical Region Laterality Modality Other Narrative Procedure Note Keira Joyner, - 07/13/2024 9:47 AM CST GI ENDOSCOPY [facility] Patient Name: Elyse Lucero Procedure Date: 07/13/2024 9:47 AM Date of : 1960 Admit Type: Outpatient Age: 64 Gender: Female Attending MD: Keira Joyner M.D. Room: [facility] ENDOSCOPY ROOM 4 Note Status: Finalized [...] scope was passed under direct vision.The CF [id number] endoscope was introduced through the anus and advanced to the terminal ileum. The colonoscopy was somewhat difficult due to atortuous colon. The patient tolerated the procedure well.The quality of the bowel preparation was good. Thequality of the bowel preparation was evaluated using theBBPS (Franklin Bowel Preparation Scale) with scores of:Right Colon [...] the days following this procedure please call [phone] ask for my nurse, Daniel. After hours and evenings please call [phone] and speak to the GI fellowon call. [...] Final Result * TSH (06/23/2024 8:09 AM INVESTMENT DIRECTOR) TSH 1.80 0.40 - 4.50 mIU/L [facility] 06/23/2024 8:09 AM INVESTMENT DIRECTOR 06/23/2024 8:11 AM INVESTMENT DIRECTOR Narrative [facility] - 06/25/2024 12:31 PM INVESTMENT DIRECTOR FASTING:YES FASTING: YES Cl Aguiar MD LAB BLOOD ORDERABLES Fin al Result [facility] [address] [facility] [place] [address] * Lipid panel (06/23/2024 8:09 AM INVESTMENT DIRECTOR) Cholesterol 141 <200 mg/dL [facility] [...] LDL-C. Isidro SAHNI et al. DIANNA. 2013;310(19): 3639-2339 (http://education.Hydra Dx/faq/JNP117) Chol/HDL ratio 1.9 <5.0 (calc) [facility] Non-HDL, (LDL+VLDL) 66 <130 mg/dL (calc) [facility] Comment: For patients with diabetes plus 1 major ASCVD risk factor, treating to a non-HDL-C goal of <100 mg/dL (LDL-C of <70 mg/dL) is considered a therapeutic option. 06/23/2024 8:09 AM INVESTMENT DIRECTOR 06/23/2024 8:11 AM INVESTMENT DIRECTOR Narrative [facility] - 06/25/2024 12:31 PM INVESTMENT DIRECTOR FASTING:YES FASTING: YES Cl Aguiar MD LAB BLOOD ORDERABLES Fin al Result Performing Organization Address [facility] Co de Phone Number [facility] [address] [address] [phone] * Albumin Creatinine Ratio, Urine (06/23/2023 10:39 AM INVESTMENT DIRECTOR) Creatinine ur 81.3 Not Estab. mg/dL [facility] - 01 Microalbumin, ur 9.6 Not Estab. ug/mL [facility] - 01 Microalbumin/cre at ratio 12 0 - 29 mg/g creat [facility] - 01 Comment: Normal: 0 - 29 Moderately increased: 30 - 300 Severely increased: >300 Urine 06/23/2023 10:3 9 AM INVESTMENT DIRECTOR 06/23/2023 Narrative [facility] - 06/24/2023 9:12 AM INVESTMENT DIRECTOR Performed at: 01 - [facility] [address] [id number] Construction Operations Manager: Russel Brooks PhD, Phone: [phone] Indu Gandhi NP LAB URINE ORDERABLES Fin al Result [facility] - 01 from Last 3 Months or Most Recently Relevant to Health Maintenance Insurance MEDICARE [facility] MEDICARE SUPPLEMENT MEDICARE [facility] MED[facility]ARE SUPPLEMENT [facility] [place] [facility] MEDICARE SUPPLEMENT MEDICARE Advance Directives For more information, please contact: [phone] * Full Code (Latest Code Status on File) Date Activated Date Inactivated Comments 07/13/2024 8:49 AM 07/13/2024 3:32 PM * Full Code Date Activated Date Inactivated Comments 07/16/2023 8:33 PM 07/27/2023 5:43 PM * Full Code Date Activated Date Inactivated Comments 01/21/2022 12:00 PM 01/22/2022 4:45 AM Care Teams Paper And Prints Restorer Relationship Specialty Start Date End Date Lisa Blake NP [address] [facility] [address] [place] [id number] PCP - General Nurse Practitioner 09/25/24
--- OUTSIDE RECORDS SUMMARY | 2024-12-10 12:34 | XMS_ITS | Continuity of Care Document ---
Author Organization [facility] Address [address] [place] [address] Phone Care Team Providers Care Boiler Tender Name Role Phone Jonathan Pa MD Unavailable [...] by oral route 3 times every week 57734 UNITS - Active LOSARTAN POTASSIUM (unknown strength) [...] cast Cast Supplies,Short Arm Cast,Fiber,Adult Office/outpatient visit,new, [facility] 2008 Cl[facility] trtmnt ulnar styloid fracture Cast Supplies,Short Arm Splint,Plaster,A dult Advance Directives Directive Yes / No Effective Date File Name No Information Encounters Encounter Description Practice Location Reason(s) For Visit Diagnoses Date Provider Providers Copied on Encounter [facility], [address] [place] [address], [id number], tel:[phone] [place] [facility] No Information 7 Thierno Castillo. [address] [place] [address], [id number], . tel:[phone] Office/outpa tient visit,est, mod [facility], [address] [place] [address], [id number], tel:[phone] SOA PA General orthopedic (chief complaint)Ost eoporosis (chief complaint) Encounter for screening for osteoporosis Age-related osteoporosis without current pathological fracture Shade Laureano. [address] [place] [address], [id number], . tel:[phone] [facility], [address] [place] [address], [id number], tel:[phone] [facility] No Information 7 Thierno Castillo. [address] [place] [address], [id number], [place]. tel:[phone] Referring Provider: Jonathan Tejada, [address] [place] [address], [address] . tel:[phone] [facility], [address] [place] [address], [id number], tel:[phone] SOA PA No Information 7 Shade Laureano. [address] [place] [address], [id number], [place]. tel:[phone] Referring Provider: Sridevi Bah, [address] [place], [address] . tel:[phone] [facility], [address] [place] [address], [id number], tel:[phone] [facility] left ring finger (chief complaint) Disp fx of prox phalanx of l rng fngr, 7thD 6 Cesario Good. [address], [place], [id number], [place]. tel:[phone] [facility], [address] [place] [address], [id number], [place] tel:[phone] [facility] No Information 6 Georgette Mckeon. [address], [place], [id number], [place]. tel:[phone] Referring Provider: Florentino Boyd, [address] [place], [address] . tel:[phone] [facility], [address] [place] [address], [id number], [place] tel:[phone] [facility] No Information 6 Cesario Good. [address], [place], [id number], [place]. tel:[phone] Referring Provider: Florentino Boyd, [address] [place], [address] . tel:[phone] [facility], [address] [place] [address], [id number], [place] tel:[phone] SOA PA hand (chief complaint) Disp fx of prox phalanx of l rng fngr, 7thD 6 Fara Arellano. [address], [place], [id number], [place]. tel:[phone] [facility], [address] [place] [address], [id number], [place] tel:[phone] SOA PA hand (chief complaint) Disp fx of prox phalanx of l rng fngr, 7thD 6 [facility]. [address], [place], [id number], . tel:[phone] [facility], [address] [place] [address], [id number], tel:[phone] SOA PA hand (chief complaint) Pain in left finger(s)Dis p fx of prox phalanx of l rng fngr, 7thD 6 Venkatesh Washington. [address], [place], [id number], [place]. tel:[phone] [facility], [address] [place] [address], [id number], tel:[phone] [facility] No Information 6 Cesario Folrentino. [address], [place], [id number], [place]. tel:[phone] Office/outpa tient visit,est, mod [facility], [address] [place] [address], [id number], tel:[phone] SOA PA left ring finger (chief complaint) Displaced fracture of proximal phalanx of left ring finger with routine healing, subsequent encounterPal mar fascial fibromatosis [Dupuytren]D isplaced fracture of proximal phalanx of left rin 6 [facility] Adan. [address], [place], [id number], [place]. tel:[phone] Office/outpa tient visit,est, mod [facility], [address] [place] [address], [id number], tel:[phone] [place] [facility] PA finger (chief complaint) Closed displaced fracture of proximal phalanx of left ring finger, initial encounterDup uytren's contracture of left hand 5 Shade Laureano. [address], [place], [id number], [place]. tel:[phone] Office/outpa tient visit,est, min [facility], [address] [place] [address], [id number], tel:[phone] SOA PA Senile Osteoporosis (Postmenopau niraj) 5 Marlena Fran. [address] [place] [address], [id number], . tel:[phone] Office/outpa tient visit,est, mod [facility], [address] [place] [address], [id number], tel:[phone] SOA PA Osteoporosis (chief complaint) Senile Osteoporosis (Postmenopau niraj) 4 Marlena Fran. [address] [place] [address], [id number], . tel:[phone] Office/outpa tient visit,est, mod [facility], [address] [place] [address], [id number], tel:[phone] [facility] Osteoporosis (chief complaint) Senile Osteoporosis (Postmenopau niraj) 4 Jose Peters. [address] [place] [address], [id number], . tel:[phone] [facility], [address] [place] [address], [id number], tel:[phone] [facility] No Information 2 Payam Kimberli. [address] [place] [address], [id number], . tel:[phone] [facility], [address] [place] [address], [id number], tel:[phone] [facility] No Information 2 Payam Kimberli. [address] [place] [address], [id number], . tel:[phone] [facility], [address] [place] [address], [id number], tel:[phone] [facility] No Information 2 Payam Ag. [address] [place] [address], [id number], . tel:[phone] [facility], [address] [place] [address], [id number], tel:[phone] [facility] No Information 2 Virgie Dave. [address] [place] [address], [id number], . tel:[phone] Referring Provider: Tenzin Virgie, [address] [place] [address], [address] . tel:[phone] Office/outpa tient visit,[facility], [address] [place] [address], [id number], tel:[phone] [facility] No Information 1 Marlena Peters. [address] [place] [address], [id number], . tel:[phone] Referring Provider: Fran Del Rosario, [address] [place] [address], [address] . tel:[phone] Office/outpa tient visit,[facility], [address] [place] [address], [id number], tel:[phone] SOA PA No Information 9-201 0 Segundo Forrest. [address], [place], [id number], [place]. tel:[phone] Office/outpa tient visit,[facility], [address] [place] [address], [id number], tel:[phone] SOA PA No Information 1- 0 Segundo Forrest. [address], [place], [id number], [place]. tel:[phone] [facility], [address] [place] [address], [id number], tel:[phone] [facility]RE[facility] STONE No Information 0-201 0 Ratna Clayton. [address], [place], [id number], . tel:[phone] [facility], [address] [place] [address], [id number], tel:[phone] [facility] No Information 9 Cesario Good. [address] [place] [address], [id number], [place]. tel:[phone] Referring Provider: Florentino Boyd, [address] [place] [address], [address] . tel:[phone] Office/outpa tient visit,est, mod [facility], [address] [place] [address], [id number], tel:[phone] [facility] No Information 9 Ertniya Arellano. [address] [place] [address], [id number], . tel:[phone] [facility], [address] [place] [address], [id number], tel:[phone] [facility] No Information 9 Jose Peters. [address] [place] [address], [id number], . tel:[phone] Referring Provider: Fran Del Rosario, [address] [place] [address], [id number] . tel:[phone] [facility], [address] [place] [address], [id number], tel:[phone] [facility] No Information 9 Chamness Elyse. [address] [place] [address], [id number], . tel:[phone] [facility], [address] [place] [address], [id number], tel:[phone] [facility] No Information 200 9 Chamness Elyse. [address] [place], [address], [place]. tel:[phone] [facility], [address] [place] [address], [id number], tel:[phone] [facility] No Information 9 Fara Arellano. [address], [place], [id number], . tel:[phone] Office/outpa tient visit,new, [facility], [address] [place] [address], [id number], tel:[phone] [facility] No Information 9 Fara Arellano. [address], [place], [id number], . tel:[phone] Family History Family Member Type Diagnosis Age At Onset Father Problem (finding) diabetes mellitus type 2 Father Problem (finding) Cardiovascular disease Mother Problem (finding) Cardiovascular disease Mother Problem (finding) Cancer, unknown Immunizations Vaccine Date Status Comments Flu (split) (3 yrs or older) administered Source: Other Provider Payers Payer name Insurance type Covered constitution party ID Authoriza timanuel(s) [employer] Of [facility] [id number] Social History Type Description Quantity Date Captured [...] DXA 1 Or More Sites Axial Skeleton (96367), Ordered on: Ordered Future Order: Radiology Order Fi nger(s) Xray Min 2 Views (51693), Ordered on: Ordered Future Order: Radiology Order Fi nger(s) Xray Min 2 Views ([id number]), Ordered on: Ordered Future Order: Radiology Order Fi nger(s) Xray Min 2 Views ([id number]), Ordered on: Ordered Future Order: Radiology Order Cory duran(s) Xray Min 2 Views ([id number]), Ordered on: Ordered Future Order: Lab Order Vitamin D, 25-Hydroxy ([id number]), Added on: New History Of Present Illness [...]
--- OUTSIDE RECORDS SUMMARY | 2024-12-10 12:34 | XMS_ITS | Clinical Summary ---
Author Organization [facility] [address] Address [address] [place] [address] Care Team Providers Care Cub Reporter Name Role Phone Lisa Blake NP Primary [...] 07/16/2023 Assessment & Plan (07/25/2023 4:02 PM 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): S/p R wrist fixation 07/14 (fracture from mechanical fall) - Ortho follow up (in [place], [place]) scheduled 07/28/23. Remains NWB RUE - PT/OT consulted - APAP, oxy prn. Miralax prn Atrial fibrillation with rapid ventricular respo nse 05/11/2022 Assessment & Plan (07/26/2023 1:02 PM 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): SVT to 190s likely from not tolerating [...] 2h from 3h & loosen IR from [id number] to 1:6 from 1:5, will review in 1 week, may need further ICR adjustment Discussed trying to start bolus 5-10 min prior to intake given occasional post-hypoglycemic events Labs 06/2024 Will schedule eye exam Assessment & Plan (06/23/2023 10:25 AM 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): A1C 8.2% Has back up basal pen, 18-20 units for failure Continue CSII/CGM Needs eye exam Labs today, including C-peptide since will transition to [facility] 07/2024 Assessment & Plan (02/11/2022 2:54 PM [...] meds Assessment & Plan (07/25/2023 12:47 PM 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): BP as low as 80/40s but likely from dehydration d/t DKA vs AFRVR and now resolved. BP been stable - c/w home lasix 20 Mild intermittent asthma 06/12/2020 Overview (06/12/2020): Per primary Resolved Problems Problem Noted Date Diagnosed Date Resolved Date Neck pain 07/26/2023 09/27/2023 Assessment & Plan (07/27/2023 9:40 AM 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): R neck pain following DCCV on 07/26. [...] 24 Assessment & Plan (07/18/2023 10:27 AM 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): UA obtained d/t DKA with 2+ LE, [...] 09/27/2023 Assessment & Plan (07/26/2023 1:03 PM 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): P/w DKA: BG 580, AG 22, bicarb [...] Department Care Team Description 12/05/2024 Results Follow-Up [facility] [address] [place] [address] Sony Morales MD ECG 12 lead 12/04/2024 8:45 AM CDT Office Visit [facility] Cardiology [address] [place] [address] Medical Office Building [address] [place] [phone] Sony Morales MD Atrial fibrillation with rapid ventricular response (HCC) (Primary Dx); Essential hypertension; Nonrheumatic tricuspid valve regurgitation; Nonrheumatic mitral valve regurgitation 11/23/2024 Results Follow-Up [facility] [address] [place] [address] [address] Poli Suarez RMA Iron profile w/ IBC, CBC with auto differential, Differential, auto, Additional followed-up results: 2 11/19/2024 3:30 PM CDT - 11/19/2024 11:59 PM CDT Hospital Encounter [facility] [address] [place] [address] Type 1 diabetes mellitus wit h hyperglycemia (HCC); Essential hypertension; Other iron deficiency anemia Discharge Disposition: Discharge to home or self care 11/19/2024 10:00 AM CDT Office Visit [facility] [address] [place] [address] [address] [phone] Cl Aguiar MD Type 1 diabetes mellitus with hyperglycemia (HCC) (Primary Dx); Essential hypertension; Other iron deficiency anemia 10/03/2024 Results Follow-Up [facility] Gastroenterolog y [address] [facility] Advanced Medicine 12th [place] [address] [place] [address] Keira Joyner DO Surgical pathology 10/01/2024 8:01 AM CDT Anesthesia Event [facility] [address] [address] Haris Quintana MD 10/01/2024 8:00 AM CDT - 10/01/2024 8:30 AM CDT Surgery [facility] [address] [address] Keira Joyner DO ESOPHAGOGASTRODUODENOSCOPY BIOPSY 10/01/2024 6:47 AM CDT - 10/01/2024 8:55 AM CDT Hospital Encounter [facility] [address] [address] Keira Joyner DO Esophagitis; Intestinal metaplasia of antrum of stomach without dysplasia Discharge Disposition: Discharge to home or self care 09/24/2024 Telephone [facility] [address] [place] [address] Anya Wang RN GI Preprocedure from Last [...] on file Legal Sex Female 3:31 AM 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 Gender Identity Not on file Sexual Orientation [...] 7:19 AM CDT COLONOSCOPY 07/13/2024 9:47 AM 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 LIPID PANEL Routine 06/23/2024 8:09 AM 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 TSH Routine 06/23/2024 8:09 AM 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 ALBUMIN CREATININE RATIO, URINE Routine 06/23/2023 10:39 AM 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 Type 1 diabetes mellitus with hyperglycemia (HCC) [...] MD LAB BLOOD ORDERABLES Fin al Result [facility] Department [place] [address] * (ABNORMAL) Differential, auto (11/19/2024 3:30 PM CDT) Neutrophil abs 4.20 1.50 - 6.50 K/cumm Imm gran abs 0.01 0.00 - 0.10 K/cumm [facility] Lymphocyte abs 1.99 0.80 - 3.30 K/cumm [facility] Monocyte abs 0.82(H) 0.20 - 0.80 K/cumm [facility] Eosinophil abs 0.39 0.00 - 0.50 K/cumm [facility] Basophil abs 0.10 0.00 - 0.10 K/cumm [facility] Neutrophil pct 56.0 % [facility] Comment: Interpretive Data Percent cell count reference ranges are not reported, since discordance with absolute values may lead to misinterpretation of CBC data. Current Interpretive Data was last revised on 2017. Imm gran pct 0.1 % [facility] Comment: Interpretive Data Percent cell count reference ranges are not reported, since discordance with absolute values may lead to misinterpretation of CBC data. Current Interpretive Data was last revised on 2017. Lymphocyte pct 26.5 % [facility] Comment: Interpretive Data Percent cell count reference ranges are not reported, since discordance with absolute values may lead to misinterpretation of CBC data. Current Interpretive Data was last revised on 2017. Monocyte pct 10.9 % [facility] Comment: Interpretive Data Percent cell count reference ranges are not reported, since discordance with absolute values may lead to misinterpretation of CBC data. Current Interpretive Data was last revised on 2017. Eosinophil pct 5.2 % [facility] Comment: Interpretive Data Percent cell count reference ranges are not reported, since discordance with absolute values may lead to misinterpretation of CBC data. Current Interpretive Data was last revised on 2017. Basophil pct 1.3 % [facility] Comment: Interpretive Data Percent cell count reference ranges are not reported, since discordance with absolute values may lead to misinterpretation of CBC data. Current Interpretive Data was last revised on 2017. Blood 11/19/2024 3:30 PM CDT 11/19/2024 7:25 PM CDT Cl Aguiar MD LAB BLOOD ORDERABLES Fin al Result Performing Organization Address [facility] Co de Phone Number [facility] Department [place] [address] * (ABNORMAL) Iron profile w/ IBC (11/19/2024 3:30 PM CDT) [facility] Iron 44 35 - 145 mcg/dL TIBC 429(H) 250 - 400 mcg/dL [facility] Transferrin saturation 10(L) 20 - 50 % [facility] Blood 11/19/2024 3:30 PM CDT 11/19/2024 7:25 PM CDT Cl Aguiar MD LAB BLOOD ORDERABLES Fin al Result Performing Organization Address City/[facility]/ZIP Co de Phone Number [facility] Department [place] [address] * (ABNORMAL) Comprehensive metabolic panel, serum (11/19/2024 3:30 PM CDT) Pathologist [facility] Sodium 142 135 - 145 mmol/L Potassium, sr 5.1 3.6 - 5.2 mmol/L [facility] Chloride 104 97 - 110 mmol/L [facility] CO2 27 22 - 32 mmol/L [facility] Anion gap 11 2 - 15 mmol/L [facility] BUN 17 6 - 25 mg/dL [facility] Creatinine 1.07 0.60 - 1.10 mg/dL [facility] Glucose 213(H) 70 - 199 mg/dL [facility] Comment: Interpretive Data Fasting glucose >/= 126 [...] 2022. Calcium 9.6 8.5 - 10.3 mg/dL [facility] Bilirubin, total 0.6 0.1 - 1.2 mg/dL [facility] Protein, sr 7.2 6.2 - 8.2 g/dL [facility] Albumin 4.4 3.5 - 5.0 g/dL [facility] Alk phos 133(H) 40 - 130 Units/L [facility] ALT 20 7 - 45 Units/L [facility] AST 27 10 - 45 Units/L [facility] Blood 11/19/2024 3:30 PM CDT 11/19/2024 7:25 PM CDT us Cl Aguiar MD LAB BLOOD ORDERABLES Fin al Result [facility] Department [place] [address] * (ABNORMAL) CBC with auto differential (11/19/2024 3:30 PM CDT) Pathologist [facility] WBC 7.51 3.80 - 9.90 K/cumm Hgb 10.8(L) 11.9 - 15.5 g/dL [facility] Hct 35.0(L) 35.6 - 45.5 % [facility] Plt 321 150 - 400 K/cumm [facility] MPV 11.4 9.1 - 12.3 fL [facility] RBC 4.24 3.90 - 5.20 M/cumm [facility] MCV 82.5 81.3 - 96.4 fL [facility] MCH 25.5(L) 27.1 - 33.3 pg [facility] MCHC 30.9(L) 32.3 - 35.7 g/dL [facility] RDW CV 18.7(H) 11.1 - 14.9 % [facility] RDW SD 57.1(H) 35.7 - 48.1 fL [facility] NRBC abs 0.00 0.00 - 0.01 K/cumm [facility] Blood 11/19/2024 3:30 PM CDT 11/19/2024 7:25 PM CDT Cl Aguiar MD LAB BLOOD ORDERABLES Fin al Result [facility] Department [place] [address] * (ABNORMAL) POCT hemoglobin A1c (11/19/2024 9:00 AM CDT) Hemoglobin A1C, POC 7.3(A) 4.0 - 5.6 % Capillary blood 11/19/2024 9 :00 AM CDT Cl Aguiar MD POINT OF CARE TEST ORDER KEVIN Final Result * Surgical pathology (10/01/2024 8:13 AM CDT) Tissue specimen (specimen) (Gastric/Stomach biopsy) 10/01/2024 8:13 AM CDT Narrative PATHOLOGY [facility] - 10/02/2024 9:40 AM CDT EPIC results best viewed via link to PDF [facility] Padmini Merino Laboratory [place] [address] Note to Patients: This report may contain [...] Gender: F : 1960 (Age: 64) Address: [address] [place] [address] [facility] #: [id number] Taken:10/01/2024 Received:10/01/2024 Reported: 10/02/2024 Patient Type: [facility] Service: Gastro Location: Physician(s): MD Lisa Khan., ACUTE CARE CLINICAL NURSE SPECIALIST Jaime Forte M.D. Diagnosis: Stomach, biopsy: - [...] x 0.1 cm. Labeled A1. Jar 0. [facility]/10/01/2024 10:38 PA(s): Caryn Pires By this signature, I attest that the above diagnosis is based upon my personal examination of the slides(and/or other material). Addenda/Procedures The performance characteristics of some immunohistochemical stains, fluorescence in-situ hybridization tests and immunophenotyping by flow cytometry cited in this report (if any) were determined by the Surgical Pathology and Flow Cytometry Departments at [facility] as part of an ongoing quality assurance tech program and in compliance with federally [...] Surgical Pathology and Flow Cytometry Departments of [facility]. It has not been cleared or approved by the U. S. Food and Drug Administration. IMAGES AND SCANNED DOCUMENTS, IF INCLUDED, ONLY VIEWABLE IN PDF VERSION OF REPORT Keira Joyner DO LAB PATHOLOGY ORDERABLES F inal Result PATHOLOGY [facility] 3rd Floor [place], [place] [phone] * EGD (10/01/2024 7:42 AM CDT) Anatomical Region Laterality Modality Other Narrative Procedure Note Keira Joyner, - 10/01/2024 7:42 AM CDT GI ENDOSCOPY [facility] Patient Name: Elyse Lucero Procedure Date: 10/01/2024 7:42 AM Date of : 1960 Admit Type: Outpatient Age: 64 Gender: Female Attending MD: Keira Joyner M.D. Room: [facility] ENDOSCOPY ROOM 4 Note Status: Finalized [...] passed under direct vision. The GIF [id number] endoscope was introducedthrough the mouth, and advanced [...] the days following this procedure please call [phone] ask for my nurse, Daniel. After hours and evenings please call [phone] and speak to the GI fellowon call. [...] ORDERABLES - IRLANDA CE Final Result [facility] María [facility] Department [place] [address] * Colonoscopy (07/13/2024 9:47 AM 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) Anatomical Region Laterality Modality Other Narrative Procedure Note Keira Joyner DO - 07/13/2024 9:47 AM CST GI ENDOSCOPY [facility] Patient Name: Elyse Lucero Procedure Date: 07/13/2024 9:47 AM Date of : 1960 Admit Type: Outpatient Age: 64 Gender: Female Attending MD: Keira Joyner M.D. Room: [facility] ENDOSCOPY ROOM 4 Note Status: Finalized [...] The scope was passed under direct vision.The [id number] endoscope was introduced through the anus and advanced to the terminal ileum. The colonoscopy was somewhat difficult due to atortuous colon. The patient tolerated the procedure well.The quality of the bowel preparation was good. Thequality of the bowel preparation was evaluated using theBBPS (Inez Bowel Preparation Scale) with scores of:Right Colon [...] the days following this procedure please call [phone] ask for my nurse, Daniel. After hours and evenings please call [phone] and speak to the GI fellowon call. [...] Final Result * TSH (06/23/2024 8:09 AM 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) TSH 1.80 0.40 - 4.50 mIU/L [facility] 06/23/2024 8:09 AM 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 06/23/2024 8:11 AM 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 Narrative [facility] - 06/25/2024 12:31 PM 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 FASTING:YES FASTING: YES us Cl Aguiar MD LAB BLOOD ORDERABLES Fin al Result [facility] [address] [address] [phone] * Lipid panel (06/23/2024 8:09 AM 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) Cholesterol 141 <200 mg/dL [facility] [...] LDL-C. Isidro SS et al. DIANNA. 2013;310(19): 8719-2959 (http://education.GI Track/faq/LCS777) Chol/HDL ratio 1.9 <5.0 (calc) [facility] Non-HDL, (LDL+VLDL) 66 <130 mg/dL (calc) [facility] Comment: For patients with diabetes plus 1 major ASCVD risk factor, treating to a non-HDL-C goal of <100 mg/dL (LDL-C of <70 mg/dL) is considered a therapeutic option. 06/23/2024 8:09 AM 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 06/23/2024 8:11 AM 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 Narrative [facility] - 06/25/2024 12:31 PM 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 FASTING:YES FASTING: YES Cl Aguiar MD LAB BLOOD ORDERABLES Fin al Result [facility] [address] [address] [facility] [place] [place] [address] * Albumin Creatinine Ratio, Urine (06/23/2023 10:39 AM 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) Creatinine ur 81.3 Not Estab. mg/dL [facility] - 01 Microalbumin, ur 9.6 Not Estab. ug/mL [facility] - 01 Microalbumin/cre at ratio 12 0 - 29 mg/g creat [facility] - 01 Comment: Normal: 0 - 29 Moderately increased: 30 - 300 Severely increased: >300 Urine 06/23/2023 10:3 9 AM 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 06/23/2023 Narrative [facility] - 06/24/2023 9:12 AM 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 Performed at: 01 - [facility] [address] [id number] Audio Narrator: Russel Brooks PhD, Phone: [phone] us Indu Gandhi ACUTE CARE CLINICAL NURSE SPECIALIST LAB URINE ORDERABLES Fin al Result [facility] - 01 from Last 3 Months or Most Recently Relevant to Health Maintenance Insurance MEDICARE [employer] MED[employer]ARE SUPPLEMENT MEDICARE [employer] SUPPLE[place] [employer] [place] Member Subscriber Plan / Payer (Ef fective 2024-Present) Name:Nic Elyse L Relation to Subscriber:Self Name:Elyse Lucero Payer ID:[id number] Group ID:[id number] Type:COMMERCIAL Address: [address] [place] [id number] MEDICARE Advance Directives For more information, please contact: [phone] * Full Code (Latest Code Status on File) Date Activated Date Inactivated Comments 07/13/2024 8:49 AM 07/13/2024 3:32 PM * Full Code Date Activated Date Inactivated Comments 07/16/2023 8:33 PM 07/27/2023 5:43 PM * Full Code Date Activated Date Inactivated Comments 01/21/2022 12:00 PM 01/22/2022 4:45 AM Care Teams Cub Reporter Relationship Specialty Start Date End Date Lisa Blake NP [address] [facility] [address] [place] [address] PCP - General Nurse Practitioner 09/25/24
--- OUTSIDE RECORDS SUMMARY | 2024-12-10 12:34 | XMS_ITS | Encounter Summary ---
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
--- NOTE | 2024-12-10 12:39 | ED_ITS ---
HPI - Extremity Injury (Lower) General Chief Complaint: Extremity Injury, Lower <Roseanna Stone PA-C - Last Filed: 12/11/24 09:25> Stated Complaint: fall <Roseanna Stone PA-C - Last Filed: 12/11/24 09:25> Time Seen by Provider: 12/10/24 11:28 <Roseanna Stone PA-C - Last Filed: 12/11/24 09:25> Source: patient <MARTHA Correa Last Filed: 12/11/24 09:25> Mode of arrival: EMS <MARTHA Correa Last Filed: 12/11/24 09:25> Limitations: no limitations <MARTHA Correa Last Filed: 12/11/24 09:25> History of Present Illness HPI Narrative: This is a 64 year old female that presents to the ER for right knee pain. Reports she was water plants and tripped going down the steps. Reports falling and injuring her right knee. She did not hit her head or lose consciousness. Unable to perform range of motion or ambulate due to pain. <MUSTAPHA Correa - Last Filed: 12/11/24 09:25> Related Data Home Medications: Home Medications ?Medication ?Instructions ?Recorded ?Confirmed ?Last Taken ?Type blood sugar diagnostic (Contour 07/02/23 10/20/23 Unknown History Next Test Strips) budesonide-formoterol HFA 160 1 inh inhalation PRN PRN ASTHMA 07/02/23 12/10/24 Unknown History mcg-4.5 mcg/actuation aerosol inhaler (Symbicort) diltiazem HCl 360 mg capsule,24 360 mg PO DAILY 07/02/23 12/10/24 Unknown History hr,extended release furosemide 20 mg tablet 20 mg PO DAILY 07/02/23 12/10/24 Unknown History glucagon 3 mg/actuation nasal 3 mg intranasal PRN PRN 07/02/23 12/10/24 Unknown History spray (Baqsimi) Hypoglycemia insulin aspart U-100 100 unit/mL See Rx Instructions .Route .COMPLEX 07/02/23 12/10/24 Unknown History subcutaneous solution (Novolog U-100 Insulin aspart) montelukast 10 mg tablet 10 mg PO DAILY 07/02/23 12/10/24 Unknown History ondansetron 4 mg disintegrating 4 mg PO Q6H PRN Nausea 07/02/23 12/10/24 Unknown History tablet rosuvastatin 10 mg tablet 10 mg PO DAILY 07/02/23 12/10/24 Unknown History apixaban 5 mg tablet (Eliquis) 5 mg PO BID 07/07/23 12/10/24 Unknown History ascorbic acid (vitamin C) 500 mg 500 mg PO DAILY 07/08/23 12/10/24 Unknown History tablet (Vitamin C) cholecalciferol (vitamin D3) 125 125 mcg PO DAILY 07/08/23 12/10/24 Unknown History mcg (5,000 unit) tablet (Vitamin D3) calcium 315 mg (as 1 tablet PO DAILY 12/10/24 12/10/24 Unknown History citrate)-vitamin D3 5 mcg (200 unit) tablet (Calcium Citrate + D) pantoprazole 40 mg tablet,delayed 40 mg PO BID 12/10/24 12/10/24 Unknown History release trazodone 50 mg tablet 50 mg PO QPM PRN sleep 12/10/24 12/10/24 Unknown History valsartan 160 mg tablet 160 mg PO DAILY 12/10/24 12/10/24 Unknown History <Roseanna Stone PA-C - Last Filed: 12/11/24 09:25> Allergies/Adverse Reactions: Allergies Allergy/AdvReac Type Severity Reaction Status Date / Time No Known Allergies Allergy Verified 12/10/24 10:59 <Roseanna Stone PA-C - Last Filed: 12/11/24 09:25> Review of Systems 2 Review of Systems: All systems reviewed & are unremarkable except as noted in HPI and below <Roseanna Stone PA-C - Last Filed: 12/11/24 09:25> [facility] Past Medical History Medical History: Medical History (Updated 12/11/24 @ 09:24 by Roseanna Stone PA-C) Diabetes, type I HTN (hypertension) Atrial fibrillation, chronic <Roseanna Stone PA-C - Last Filed: 12/11/24 09:25> Surgical History Surgical History: Surgical History History of removal of ovarian cyst 1998 History of surgery on left wrist ORIF ~2017 <Roseanna Stone PA-C - Last Filed: 12/11/24 09:25> Social History Social History: Social History Smoking status: Never smoker Alcohol intake: never Substance use: never Substance use type: does not use Living arrangements: with family Spiritual care concerns: No <Roseanna Stone PA-C - Last Filed: 12/11/24 09:25> Exam 2 Narrative: GENERAL: Well-appearing, well-nourished, and in no acute distress. HEAD: Normocephalic, atraumatic. EYES: EOMI. CHEST: No respiratory distress. HEART: Regular rate and rhythm. EXTREMITIES: No obvious deformity SKIN: Warm, dry, no rash. NEURO: No focal deficits. Alert and oriented x3. PSYCH: Normal mood and affect <Roseanna Stone PA-C - Last Filed: 12/11/24 09:25> Course Course Emergency Course: Patient updated on her workup and recommendation for transfer for higher level of care for trauma. Patient prefers [place] system as that is where several of her specialists are <Roseanna Stone PA-C - Last Filed: 12/11/24 09:25> GANG LE[employer]ER/PA Physician Supervision I was notified patient to be transferred and she remained hemodynamically stable overnight, PRNs ordered for pain control. <Suzy Torre MD - Last Filed: 12/11/24 08:52> Consultations Consultation #1: Spoke with Dr. Santana about patient and workup. Patient is conditionally accepted to [place]. We can transfer her when they have better bed availability. They will call with updates <Roseanna Stone PA-C - Last Filed: 12/11/24 09:25> Date: 12/10/24 <MARTHA Correa Last Filed: 12/11/24 09:25> Vital Signs Vital signs: Vital Signs Temperature 97.6 F 12/10/24 10:57 Pulse Rate 78 12/10/24 10:57 Respiratory Rate 18 12/10/24 10:57 Blood Pressure 133/95 H 12/10/24 10:57 Pulse Oximetry 100 12/10/24 10:57 Oxygen Delivery Room Air 12/10/24 10:57 Temperature 97.6 F 12/10/24 10:57 Pulse Rate 93 12/11/24 06:49 Respiratory Rate 20 12/11/24 06:49 Blood Pressure 132/72 12/11/24 06:49 Pulse Oximetry 98 12/11/24 06:49 Oxygen Delivery Nasal Cannula 12/11/24 04:15 Oxygen Flow Rate 1 12/11/24 04:15 <Roseanna Stone PA-C - Last Filed: 12/11/24 09:25> Vital Signs Temperature 97.6 F 12/10/24 10:57 Pulse Rate 78 12/10/24 10:57 Respiratory Rate 18 12/10/24 10:57 Blood Pressure 133/95 H 12/10/24 10:57 Pulse Oximetry 100 12/10/24 10:57 Oxygen Delivery Room Air 12/10/24 10:57 Temperature 97.6 F 12/10/24 10:57 Pulse Rate 93 12/11/24 06:49 Respiratory Rate 20 12/11/24 06:49 Blood Pressure 132/72 12/11/24 06:49 Pulse Oximetry 98 12/11/24 06:49 Oxygen Delivery Nasal Cannula 12/11/24 04:15 Oxygen Flow Rate 1 12/11/24 04:15 <Junie Campbell PA-C - Last Filed: 12/11/24 03:35> Vital Signs Temperature 97.6 F 12/10/24 10:57 Pulse Rate 78 12/10/24 10:57 Respiratory Rate 18 12/10/24 10:57 Blood Pressure 133/95 H 12/10/24 10:57 Pulse Oximetry 100 12/10/24 10:57 Oxygen Delivery Room Air 12/10/24 10:57 Temperature 97.6 F 12/10/24 10:57 Pulse Rate 93 12/11/24 06:49 Respiratory Rate 20 12/11/24 06:49 Blood Pressure 132/72 12/11/24 06:49 Pulse Oximetry 98 12/11/24 06:49 Oxygen Delivery Nasal Cannula 12/11/24 04:15 Oxygen Flow Rate 1 12/11/24 04:15 <Suzy Torre MD - Last Filed: 12/11/24 08:52> MDM - Extremity Injury (Lower) MDM Narrative Medical decision making narrative: Patient presents the emergency department after a fall today with right knee injury. Patient denies hitting head or loss of consciousness. She is neurovascularly intact. Right knee x-ray shows a comminuted, displaced right lateral tibial plateau fracture as well as proximal fibular fracture. Moderate lipohemarthrosis. Spoke with Dr. Coates about patient and workup. Recommends transfer for higher level of care. Patient updated on her workup and recommendation for transfer for higher level of care for trauma. Patient prefers [place] system as that is where several of her specialists are. Spoke with Dr. Santana about patient and workup. Patient is conditionally accepted to [place]. We can transfer her when they have better bed availability. They will call with updates <Roseanna Stone PA-C - Last Filed: 12/11/24 09:25> Patient presents the emergency department after a fall today with right knee injury. Patient denies hitting head or loss of consciousness. She is neurovascularly intact. Right knee x-ray shows a comminuted, displaced right lateral tibial plateau fracture as well as proximal fibular fracture. Moderate lipohemarthrosis. Spoke with Dr. Coates about patient and workup. Recommends transfer for higher level of care. Patient updated on her workup and recommendation for transfer for higher level of care for trauma. Patient prefers [place] system as that is where several of her specialists are. Spoke with Dr. Santana about patient and workup. Patient is conditionally accepted to [place]. We can transfer her when they have better bed availability. They will call with updates RG - [phone] - Evaluated patient at bedside. She has been stable throughout ED stay. Has required a few additional doses of IV pain medication, but overall pain relatively well controlled. She requested something to help her sleep. She does take trazodone at home. Given this in the ED. We reached out to [facility] for an update and was advised patient has 6 people waiting in line in front of her for [place] ED. Discussed this with patient. She would prefer to stay within the [facility] system, but is willing to go to other facilities. Will reach back out. Was advised by [facility] transfer center that she is a trauma and will need to go to [place]. Discussed [facility] versus [facility]. Again, patient would prefer to stay with [facility] system. Awaiting bed placement. Care signed out to Dr. Torre at shift change pending bed placement with [facility]. < Junie Campbell PA-C - Last Filed: 12/11/24 03:35> Patient presents the emergency department after a fall today with right knee injury. Patient denies hitting head or loss of consciousness. She is neurovascularly intact. Right knee x-ray shows a comminuted, displaced right lateral tibial plateau fracture as well as proximal fibular fracture. Moderate lipohemarthrosis. Spoke with Dr. Coates about patient and workup. Recommends transfer for higher level of care. Patient updated on her workup and recommendation for transfer for higher level of care for trauma. Patient prefers [place] system as that is where several of her specialists are. Spoke with Dr. Santana about patient and workup. Patient is conditionally accepted to [place]. We can transfer her when they have better bed availability. They will call with updates RG - [phone] - Evaluated patient at bedside. She has been stable throughout ED stay. Has required a few additional doses of IV pain medication, but overall pain relatively well controlled. She requested something to help her sleep. She does take trazodone at home. Given this in the ED. We reached out to [facility] for an update and was advised patient has 6 people waiting in line in front of her for [facility]. Discussed this with patient. She would prefer to stay within the [facility] system, but is willing to go to other facilities. Will reach back out. Was advised by [facility] transfer center that she is a trauma and will need to go to [place]. Discussed [facility] versus [facility]. Again, patient would prefer to stay with [facility] system. Awaiting bed placement. Care signed out to Dr. Torre at shift change pending bed placement with [facility]. Received notification at approximately 04:20 that black out status for the ED has been lifted and patient can now be transferred as an ED to ED transfer, accepting Dr Willett. Patient pending EMS for transportation. <Suzy Torre MD - Last Filed: 12/11/24 08:52> Differential Diagnosis Differential diagnosis: Likely acute internal derangement of knee and other (tibial plateau fracture) <Roseanna Stone PA-C - Last Filed: 12/11/24 09:25> Lab Data Attestation: I reviewed the patient's lab results. <Roseanna Stone PA-C - Last Filed: 12/11/24 09:25> Result diagrams: 12/11/24 06:23 12/11/24 06:23 <Roseanna Stone PA-C - Last Filed: 12/11/24 09:25> Labs: Lab Results 12/10/24 12/11/24 12/11/24 Range/Units 14:11 00:35 06:23 WBC 10.3 H (4.5-10.0) K/mm3 RBC 3.92 L (4.2-5.4) M/mm3 Hgb 10.0 L (12.0-15.0) g/dL Hct 33.6 L (37.0-47.0) % MCV 85.7 (80-100) fl MCH 25.5 L (26-34) pg MCHC 29.8 L (32-36) g/dl RDW 17.0 H (11.5-14.5) % Plt Count 304 (150-375) k/mm3 MPV 11.3 H (7.4-10.4) fl Immature Gran % (Auto) 0.3 (0-0.5) % Neut % (Auto) 69.6 (45.5-73.1) % Lymph % (Auto) 16.1 L (18.3-44.2) % [place] % (Auto) 13.0 H (2.6-8.5) % Eos % (Auto) 0.3 (0-4.4) % Baso % (Auto) 0.7 (0.2-1.2) % Lymph # (Auto) 1.65 (0.9-3.2) K/mm3 [place] # (Auto) 1.3 H (0.1-0.6) K/mm3 Eos # (Auto) 0.0 (0-0.3) K/mm3 Baso # (Auto) 0.1 (0.0-0.1) K/mm3 Abs Immat Gran (auto) 0.03 (0.00-0.031) K/mm3 Absolute Neuts (auto) 7.2 H (1.3-6.7) K/mm3 Absolute Nucleated RBC 0.000 (0.0-0.012) K/mm3 Band Neutrophils % Not Reportable Nucleated RBC % 0.0 (0.0-0.2) % Platelet Estimate Adequate (Adequate) Hypochromasia 1+ Anisocytosis 1+ Ovalocytes 1+ Schistocytes None seen PT 15.2 H (11.1-14.7) Seconds INR 1.2 APTT 24.7 (22.3-36.8) Seconds Sodium 140 (137-145) mmol/L Potassium 4.6 (3.4-5.0) mmol/L Chloride 105 (98-107) mmol/L Carbon Dioxide 26 (22-30) mmol/L Anion Gap 9 (4-12) mmol/L BUN 17 (7-17) mg/dL Creatinine 0.92 (0.7-1.0) mg/dL Estim Creat Clear Calc 53 ml/min Estimated GFR > 60 (59 - ) Glucose 167 H (65-110) mg/dL POC Capillary Glucose 274 H 164 H (65-105) mg/dl Calcium 8.7 (8.4-10.2) mg/dL Total Bilirubin 0.7 (0.2-1.3) mg/dL AST 30 (14-36) U/L ALT 20 (6-35) U/L Alkaline Phosphatase 150 H (38-126) U/L Total Protein 7.0 (6.3-8.2) g/dL Albumin 4.2 (3.5-5.1) g/dL /10/02 Range/Units 06:52 WBC (4.5-10.0) K/mm3 RBC (4.2-5.4) M/mm3 Hgb (12.0-15.0) g/dL Hct (37.0-47.0) % MCV (80-100) fl MCH (26-34) pg MCHC (32-36) g/dl RDW (11.5-14.5) % Plt Count (150-375) k/mm3 MPV (7.4-10.4) fl Immature Gran % (Auto) (0-0.5) % Neut % (Auto) (45.5-73.1) % Lymph % (Auto) (18.3-44.2) % [place] % (Auto) (2.6-8.5) % Eos % (Auto) (0-4.4) % Baso % (Auto) (0.2-1.2) % Lymph # (Auto) (0.9-3.2) K/mm3 [place] # (Auto) (0.1-0.6) K/mm3 Eos # (Auto) (0-0.3) K/mm3 Baso # (Auto) (0.0-0.1) K/mm3 Abs Immat Gran (auto) (0.00-0.031) K/mm3 Absolute Neuts (auto) (1.3-6.7) K/mm3 Absolute Nucleated RBC (0.0-0.012) K/mm3 Band Neutrophils % Nucleated RBC % (0.0-0.2) % Platelet Estimate (Adequate) Hypochromasia Anisocytosis Ovalocytes Schistocytes PT (11.1-14.7) Seconds INR APTT (22.3-36.8) Seconds Sodium (137-145) mmol/L Potassium (3.4-5.0) mmol/L Chloride (98-107) mmol/L Carbon Dioxide (22-30) mmol/L Anion Gap (4-12) mmol/L BUN (7-17) mg/dL Creatinine (0.7-1.0) mg/dL Estim Creat Clear Calc ml/min Estimated GFR (59 - ) Glucose (65-110) mg/dL POC Capillary Glucose 202 H (65-105) mg/dl Calcium (8.4-10.2) mg/dL Total Bilirubin (0.2-1.3) mg/dL AST (14-36) U/L ALT (6-35) U/L Alkaline Phosphatase (38-126) U/L Total Protein (6.3-8.2) g/dL Albumin (3.5-5.1) g/dL <Roseanna Stone PA-C - Last Filed: 12/11/24 09:25> Lab Results 12/10/24 12/11/24 12/11/24 Range/Units 14:11 00:35 06:23 WBC 10.3 H (4.5-10.0) K/mm3 RBC 3.92 L (4.2-5.4) M/mm3 Hgb 10.0 L (12.0-15.0) g/dL Hct 33.6 L (37.0-47.0) % MCV 85.7 (80-100) fl MCH 25.5 L (26-34) pg MCHC 29.8 L (32-36) g/dl RDW 17.0 H (11.5-14.5) % Plt Count 304 (150-375) k/mm3 MPV 11.3 H (7.4-10.4) fl Immature Gran % (Auto) 0.3 (0-0.5) % Neut % (Auto) 69.6 (45.5-73.1) % Lymph % (Auto) 16.1 L (18.3-44.2) % [place] % (Auto) 13.0 H (2.6-8.5) % Eos % (Auto) 0.3 (0-4.4) % Baso % (Auto) 0.7 (0.2-1.2) % Lymph # (Auto) 1.65 (0.9-3.2) K/mm3 [place] # (Auto) 1.3 H (0.1-0.6) K/mm3 Eos # (Auto) 0.0 (0-0.3) K/mm3 Baso # (Auto) 0.1 (0.0-0.1) K/mm3 Abs Immat Gran (auto) 0.03 (0.00-0.031) K/mm3 Absolute Neuts (auto) 7.2 H (1.3-6.7) K/mm3 Absolute Nucleated RBC 0.000 (0.0-0.012) K/mm3 Band Neutrophils % Not Reportable Nucleated RBC % 0.0 (0.0-0.2) % Platelet Estimate Adequate (Adequate) Hypochromasia 1+ Anisocytosis 1+ Ovalocytes 1+ Schistocytes None seen PT 15.2 H (11.1-14.7) Seconds INR 1.2 APTT 24.7 (22.3-36.8) Seconds Sodium 140 (137-145) mmol/L Potassium 4.6 (3.4-5.0) mmol/L Chloride 105 (98-107) mmol/L Carbon Dioxide 26 (22-30) mmol/L Anion Gap 9 (4-12) mmol/L BUN 17 (7-17) mg/dL Creatinine 0.92 (0.7-1.0) mg/dL Estim Creat Clear Calc 53 ml/min Estimated GFR > 60 (59 - ) Glucose 167 H (65-110) mg/dL POC Capillary Glucose 274 H 164 H (65-105) mg/dl Calcium 8.7 (8.4-10.2) mg/dL Total Bilirubin 0.7 (0.2-1.3) mg/dL AST 30 (14-36) U/L ALT 20 (6-35) U/L Alkaline Phosphatase 150 H (38-126) U/L Total Protein 7.0 (6.3-8.2) g/dL Albumin 4.2 (3.5-5.1) g/dL 12/11/24 Range/Units 06:52 WBC (4.5-10.0) K/mm3 RBC (4.2-5.4) M/mm3 Hgb (12.0-15.0) g/dL Hct (37.0-47.0) % MCV (80-100) fl MCH (26-34) pg MCHC (32-36) g/dl RDW (11.5-14.5) % Plt Count (150-375) k/mm3 MPV (7.4-10.4) fl Immature Gran % (Auto) (0-0.5) % Neut % (Auto) (45.5-73.1) % Lymph % (Auto) (18.3-44.2) % [place] % (Auto) (2.6-8.5) % Eos % (Auto) (0-4.4) % Baso % (Auto) (0.2-1.2) % Lymph # (Auto) (0.9-3.2) K/mm3 [place] # (Auto) (0.1-0.6) K/mm3 Eos # (Auto) (0-0.3) K/mm3 Baso # (Auto) (0.0-0.1) K/mm3 Abs Immat Gran (auto) (0.00-0.031) K/mm3 Absolute Neuts (auto) (1.3-6.7) K/mm3 Absolute Nucleated RBC (0.0-0.012) K/mm3 Band Neutrophils % Nucleated RBC % (0.0-0.2) % Platelet Estimate (Adequate) Hypochromasia Anisocytosis Ovalocytes Schistocytes PT (11.1-14.7) Seconds INR APTT (22.3-36.8) Seconds Sodium (137-145) mmol/L Potassium (3.4-5.0) mmol/L Chloride (98-107) mmol/L Carbon Dioxide (22-30) mmol/L Anion Gap (4-12) mmol/L BUN (7-17) mg/dL Creatinine (0.7-1.0) mg/dL Estim Creat Clear Calc ml/min Estimated GFR (59 - ) Glucose (65-110) mg/dL POC Capillary Glucose 202 H (65-105) mg/dl Calcium (8.4-10.2) mg/dL Total Bilirubin (0.2-1.3) mg/dL AST (14-36) U/L ALT (6-35) U/L Alkaline Phosphatase (38-126) U/L Total Protein (6.3-8.2) g/dL Albumin (3.5-5.1) g/dL <Junie Campbell PA-C - Last Filed: 12/11/24 03:35> Lab Results 12/10/24 12/11/24 12/11/24 Range/Units 14:11 00:35 06:23 WBC 10.3 H (4.5-10.0) K/mm3 RBC 3.92 L (4.2-5.4) M/mm3 Hgb 10.0 L (12.0-15.0) g/dL Hct 33.6 L (37.0-47.0) % MCV 85.7 (80-100) fl MCH 25.5 L (26-34) pg MCHC 29.8 L (32-36) g/dl RDW 17.0 H (11.5-14.5) % Plt Count 304 (150-375) k/mm3 MPV 11.3 H (7.4-10.4) fl Immature Gran % (Auto) 0.3 (0-0.5) % Neut % (Auto) 69.6 (45.5-73.1) % Lymph % (Auto) 16.1 L (18.3-44.2) % [place] % (Auto) 13.0 H (2.6-8.5) % Eos % (Auto) 0.3 (0-4.4) % Baso % (Auto) 0.7 (0.2-1.2) % Lymph # (Auto) 1.65 (0.9-3.2) K/mm3 [place] # (Auto) 1.3 H (0.1-0.6) K/mm3 Eos # (Auto) 0.0 (0-0.3) K/mm3 Baso # (Auto) 0.1 (0.0-0.1) K/mm3 Abs Immat Gran (auto) 0.03 (0.00-0.031) K/mm3 Absolute Neuts (auto) 7.2 H (1.3-6.7) K/mm3 Absolute Nucleated RBC 0.000 (0.0-0.012) K/mm3 Band Neutrophils % Not Reportable Nucleated RBC % 0.0 (0.0-0.2) % Platelet Estimate Adequate (Adequate) Hypochromasia 1+ Anisocytosis 1+ Ovalocytes 1+ Schistocytes None seen PT 15.2 H (11.1-14.7) Seconds INR 1.2 APTT 24.7 (22.3-36.8) Seconds Sodium 140 (137-145) mmol/L Potassium 4.6 (3.4-5.0) mmol/L Chloride 105 (98-107) mmol/L Carbon Dioxide 26 (22-30) mmol/L Anion Gap 9 (4-12) mmol/L BUN 17 (7-17) mg/dL Creatinine 0.92 (0.7-1.0) mg/dL Estim Creat Clear Calc 53 ml/min Estimated GFR > 60 (59 - ) Glucose 167 H (65-110) mg/dL POC Capillary Glucose 274 H 164 H (65-105) mg/dl Calcium 8.7 (8.4-10.2) mg/dL Total Bilirubin 0.7 (0.2-1.3) mg/dL AST 30 (14-36) U/L ALT 20 (6-35) U/L Alkaline Phosphatase 150 H (38-126) U/L Total Protein 7.0 (6.3-8.2) g/dL Albumin 4.2 (3.5-5.1) g/dL 12/11/24 Range/Units 06:52 WBC (4.5-10.0) K/mm3 RBC (4.2-5.4) M/mm3 Hgb (12.0-15.0) g/dL Hct (37.0-47.0) % MCV (80-100) fl MCH (26-34) pg MCHC (32-36) g/dl RDW (11.5-14.5) % Plt Count (150-375) k/mm3 MPV (7.4-10.4) fl Immature Gran % (Auto) (0-0.5) % Neut % (Auto) (45.5-73.1) % Lymph % (Auto) (18.3-44.2) % [place] % (Auto) (2.6-8.5) % Eos % (Auto) (0-4.4) % Baso % (Auto) (0.2-1.2) % Lymph # (Auto) (0.9-3.2) K/mm3 [place] # (Auto) (0.1-0.6) K/mm3 Eos # (Auto) (0-0.3) K/mm3 Baso # (Auto) (0.0-0.1) K/mm3 Abs Immat Gran (auto) (0.00-0.031) K/mm3 Absolute Neuts (auto) (1.3-6.7) K/mm3 Absolute Nucleated RBC (0.0-0.012) K/mm3 Band Neutrophils % Nucleated RBC % (0.0-0.2) % Platelet Estimate (Adequate) Hypochromasia Anisocytosis Ovalocytes Schistocytes PT (11.1-14.7) Seconds INR APTT (22.3-36.8) Seconds Sodium (137-145) mmol/L Potassium (3.4-5.0) mmol/L Chloride (98-107) mmol/L Carbon Dioxide (22-30) mmol/L Anion Gap (4-12) mmol/L BUN (7-17) mg/dL Creatinine (0.7-1.0) mg/dL Estim Creat Clear Calc ml/min Estimated GFR (59 - ) Glucose (65-110) mg/dL POC Capillary Glucose 202 H (65-105) mg/dl Calcium (8.4-10.2) mg/dL Total Bilirubin (0.2-1.3) mg/dL AST (14-36) U/L ALT (6-35) U/L Alkaline Phosphatase (38-126) U/L Total Protein (6.3-8.2) g/dL Albumin (3.5-5.1) g/dL <Suzy Torre MD - Last Filed: 12/11/24 08:52> Imaging Data Radiologist's impression: ITS Impressions Knee X-Ray 12/10/24 13:21 Impression: 1: Comminuted displaced right lateral tibial plateau and proximal fibular fractures. 2: Moderate lipohemarthrosis. Ankle X-Ray 12/10/24 13:56 Impression: 1: No acute bone or joint abnormality. <Roseanna Stone PA-C - Last Filed: 12/11/24 09:25> Critical Care Time Critical Care Time Critical Care Time: No <Roseanna Stone PA-C - Last Filed: 12/11/24 09:25> Discharge Plan Discharge Clinical Impression: Closed fracture of right tibial plateau Qualifiers: Encounter type: initial encounter Qualified Code(s): S82.141A - Displaced bicondylar fracture of right tibia, initial encounter for closed fracture Atrial fibrillation Qualifiers: Atrial fibrillation type: unspecified Qualified Code(s): I48.91 - Unspecified atrial fibrillation <Roseanna Stone PA-C - Last Filed: 12/11/24 09:25> Patient Disposition: Acute Care Hospital <Roseanna Stone PA-C - Last Filed: 12/11/24 09:25> Condition: Serious <Roseanna Stone PA-C - Last Filed: 12/11/24 09:25> Patient Language: Uzbek <MARTHA Correa Last Filed: 12/11/24 09:25> Prescriptions: No Action diltiazem HCl 360 mg capsule,extended release 24 hr 360 mg PO DAILY (DME) Contour Next Test Strips Strip MISCELLANEOUS insulin aspart U-100 [Novolog U-100 Insulin aspart] 100 unit/mL solution See Rx Instructions .ROUTE .COMPLEX Rx Instructions: INSULIN PUMP montelukast 10 mg tablet 10 mg PO DAILY furosemide 20 mg tablet 20 mg PO DAILY ondansetron 4 mg tablet,disintegrating 4 mg PO Q6H PRN (Reason: Nausea) rosuvastatin 10 mg tablet 10 mg PO DAILY budesonide-formoterol [Symbicort] 160-4.5 mcg/actuation HFA aerosol inhaler 1 inh INHALATION PRN PRN (Reason: ASTHMA) Baqsimi 3 mg/actuation spray,non-aerosol 3 mg INTRANASAL PRN PRN (Reason: Hypoglycemia) Eliquis 5 mg tablet 5 mg PO BID calcium citrate-vitamin D3 [Calcium Citrate + D] 315 mg-5 mcg (200 unit) tablet 1 tablet PO DAILY valsartan 160 mg tablet 160 mg PO DAILY pantoprazole 40 mg tablet,delayed release (DR/EC) 40 mg PO BID trazodone 50 mg tablet 50 mg PO QPM PRN (Reason: sleep) ascorbic acid (vitamin C) [Vitamin C] 500 mg Tablet 500 mg PO DAILY cholecalciferol (vitamin D3) [Vitamin D3] 125 mcg (5,000 unit) Tablet 125 mcg PO DAILY <Roseanna Stone PA-C - Last Filed: 12/11/24 09:25> Follow-up/Referrals: UNKNOWN,DOCTOR [Primary Care Provider] - <Roseanna Stone PA-C - Last Filed: 12/11/24 09:25>
[2024-12-10] MEDS: HYDROmorphone HCL INJ (*CRX) 2 MG/ML VIAL 0.5 MG IV PUSH ×2 (14:01→20:22)
[2024-12-10 14:14] LABS: Glucose Point of Care 274 mg/dl (65-105)
[2024-12-10] MEDS: dilTIAZem HCL CD 180 MG CAP.24HR 360 MG PO (15:28)
--- NOTE | 2024-12-10 19:19 | PC.NURSE ---
Assumed care of patient after receiving bedside report from MINDY Robledo @ [id number]
--- NOTE | 2024-12-10 20:44 | PC.NURSE ---
Brought pt hospital bed and explained to pt that we could slide her to the new bed to avoid further pain. Pt stated her nurse gave her pain meds 5 minutes prior to me talking to her about hospital bed. Pt stated she would like to wait about 10 minutes for the pain meds to kick in before transferring to the new bed.
--- NOTE | 2024-12-10 21:08 | PC.NURSE ---
Patient placed in hospital bed.
[2024-12-11 00:38] LABS: Glucose Point of Care 164 mg/dl (65-105)
--- NOTE | 2024-12-11 00:41 | PC.NURSE ---
Pt called out and stated she needed to urinate. To prevent further pain, a female purewick was placed.
[2024-12-11] MEDS: HYDROmorphone HCL INJ (*CRX) 2 MG/ML VIAL 0.5 MG IV PUSH ×4 (00:49→08:51)
[2024-12-11 02:56] VITALS: BP 130/77; PULSE 89; RESP 15; O2SAT 99
[2024-12-11] MEDS: traZODone HCL 50 MG TABLET PO (03:35)
[2024-12-11 04:15] VITALS: O2SAT 98
[2024-12-11 05:50] VITALS: BP 111/67; PULSE 95; RESP 16; O2SAT 96
--- NOTE | 2024-12-11 05:54 | PC.NURSE ---
Labs sent at 0505. This RN called lab at 0550 due to labs not being received. Per Gabrielle, she has to look for tubes.
--- NOTE | 2024-12-11 06:14 | PC.NURSE ---
This RN called lab again regarding labs. Spoke with Margaret whom stated they are unable to find lab tubes. Labs to be redrawn.
[2024-12-11 06:44] LABS: Basophils Absolute Auto 0.1 K/mm3 (0.0-0.1); Basophils Percent Auto 0.7 % (0.2-1.2); Eosinophils Percent Auto 0.3 % (0-4.4); Hematocrit 33.6 % (37.0-47.0); Immature Granulocyte Absolute 0.03 K/mm3 (0.00-0.031); Immature Granulocyte Percent A 0.3 % (0-0.5); Lymphocytes Absolute Auto 1.65 K/mm3 (0.9-3.2); Lymphocytes Percent Auto 16.1 % (18.3-44.2); Mean Corpuscular HGB Conc 29.8 g/dl (32-36); Mean Corpuscular Hemoglobin 25.5 pg (26-34); Mean Corpuscular Volume 85.7 fl (80-100); Mean Platelet Volume 11.3 fl (7.4-10.4); Monocytes Absolute Auto 1.3 K/mm3 (0.1-0.6); Neutrophils Absolute Auto 7.2 K/mm3 (1.3-6.7); Neutrophils Percent Auto 69.6 % (45.5-73.1); Platelet Count Result 304 k/mm3 (150-375); Red Blood Count 3.92 M/mm3 (4.2-5.4); White Blood Count 10.3 K/mm3 (4.5-10.0)
[2024-12-11 06:49] VITALS: BP 132/72; PULSE 93; RESP 20; O2SAT 98
[2024-12-11 06:50] LABS: Alanine Aminotransferase 20 U/L (6-35); Albumin Level 4.2 g/dL (3.5-5.1); Alkaline Phosphatase 150 U/L (38-126); Anion Gap 9 mmol/L (4-12); Aspartate Amino Transferase 30 U/L (14-36); Bilirubin,Total 0.7 mg/dL (0.2-1.3); Blood Urea Nitrogen 17 mg/dL (7-17); Calcium 8.7 mg/dL (8.4-10.2); Carbon Dioxide 26 mmol/L (22-30); Chloride 105 mmol/L (98-107); Estimated CRCL calculation 53 ml/min; Estimated Glomerular Filt Rate > 60; Glucose 167 mg/dL (65-110); Potassium 4.6 mmol/L (3.4-5.0); Sodium 140 mmol/L (137-145)
[2024-12-11 07:04] LABS: INR 1.2; Partial Thromboplastin Time 24.7 Seconds (22.3-36.8); Prothrombin Time 15.2 Seconds (11.1-14.7)
[2024-12-11 07:28] LABS: Glucose Point of Care 202 mg/dl (65-105)
[2024-12-11 07:46] LABS: Anisocytosis 1+; Hypochromasia 1+; Ovalocytes 1+; Platelet Estimate Adequate (Adequate)
[2024-12-11 07:47] LABS: Schistocytes None Seen
[2024-12-11 09:30] VITALS: BP 112/62; PULSE 115; RESP 15; O2SAT 95
== END 2024-12-11 09:36 | disposition short-term general hospital (02) ==
PROVIDERS: Physician Assistant; Emergency Provider Student in an Organized Health Care Education/Training Program
DX: S82.141A Displaced bicondylar fracture of right tibia, initial encounter for closed fracture (principal); I48.91 Unspecified atrial fibrillation; E10.9 Type 1 diabetes mellitus without complications; I10 Essential (primary) hypertension; Z79.4 Long term (current) use of insulin; W10.9XXA Fall (on) (from) unspecified stairs and steps, initial encounter
CPT/HCPCS: 36415; 73564; 73600; 80053; 82948; 85025; 85610; 85730; 96374; 96375; 96376; 99285; A9270; J1171; J2270; J2405

== ENCOUNTER 2025-03-28 09:00 | Outpatient (RCR) | payer MEDICARE, SELFPAY ==
--- NOTE | 2024-12-31 18:01 | OPREHPOC ---
Outpatient Therapy Plan of Care This is a Multidisciplinary Plan of Care that may contain components documented by all disciplines (PT, OT, and ST.) PT Problem 1 PT Problem #1 Knowledge Deficit PT Goal 1 Goal / Goal Update [place] with HEP Target Visit 4 PT Problem 2 PT Problem #2 Impaired Range of Motion PT Goal 1 Goal / Goal Update 1. Patient will achieve 120 degrees of right knee flexion ROM 2. Patient will achieve 10 degrees of right ankle dorsiflexion ROM to achieve terminal stance of gait Target Visit 8 PT Problem 3 PT Problem #3 Impaired Strength PT Goal 1 Goal / Goal Update 1. Improve R knee extension strength to 5/5 to improve stability for weightbearing activity 2. Improve R knee flexion strength to 5/5 to improve knee stability with functional activity Target Visit 8 PT Problem 4 PT Problem #4 Impaired Gait PT Goal 1 Goal / Goal Update 1. Patient will demonstrate ability to perform 50' ambulation with 2 wheeled walker and NWB R LE for short distance ambulation Target Visit 8
--- NOTE | 2024-12-31 18:02 | PTOPEVAL1 ---
Assessment and note entered by Aj Calderon, PT Evaluation Information Assessment Status Evaluation Diagnosis S82.141A ICD-10 Condition Codes (PT) Pain in right knee M25.561 Onset 12/12/24 Subjective Information Reports that she has a history of severe osteoporosis. She had a fall resulting in tibial plateau and fibula fracture. Surgery on 12/12/24. She was in an inpatient stay from 12/17 to 12/26. She is NWB and has ru in brace consistently since fracture. She saw the MD today and was told that she can begin to move the knee in the brace into flexion. She is currently in a wheelchair but can self transfer. Reports that he has issues with low blood sugar and keeps glucose tabs on hand. Ice and Tylenol have been helping to control pain at rest. She was released today to start some passive motion of the knee. Reported Pain Level Pain Score 1: Self Report Assessment PT Clinical Summary Patient presents with loss of ambulation, weakness , loss of knee ROM following trauma to tibial plateau resulting in fracture and repair. Patient is non weight bearing and has special considerations for osteoporosis resulting in need for protective healing as she progresses. 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 Plan of Care Interventions Gait Training,Neuro Re-education,Therapeutic Activities,Therapeutic Exercise PT Services Indicated Yes Treatment Frequency and 1x/ week for 8 visits Duration These treatments will address the objective and functional deficits as defined above. The patient will be advanced safely and appropriately in order for the patient to progress towards his/her prior level of function. Additional exercises will be introduced and as well as a comprehensive home exercise program upon discharge, if needed, ?to ensure carryover of functional gains achieved in the clinic. This treatment plan has been reviewed and agreement upon by the patient.
--- NOTE | 2025-02-15 14:26 | OPREHPOC ---
Outpatient Therapy Plan of Care This is a Multidisciplinary Plan of Care that may contain components documented by all disciplines (PT, OT, and ST.) PT Problem 1 PT Problem #1 Knowledge Deficit PT Goal 1 Goal / Goal Update [place] with HEP 02-15-25 progress goal met continue to progress HEP and gait training Target Visit 16 PT Problem 2 PT Problem #2 Impaired Range of Motion PT Goal 1 Goal / Goal Update 1. Patient will achieve 120 degrees of right knee flexion ROM 2. Patient will achieve 10 degrees of right ankle dorsiflexion ROM to achieve terminal stance of gait 02-15-25 progress goals not met; knee flexion 115; and ankle DF 0' continue towards goals Target Visit 16 PT Problem 3 PT Problem #3 Impaired Strength PT Goal 1 Goal / Goal Update 1. Improve R knee extension strength to 5/5 to improve stability for weightbearing activity 2. Improve R knee flexion strength to 5/5 to improve knee stability with functional activity 02-15-25 progress goal not met, 4-/5 continue towards goals Target Visit 16 PT Problem 4 PT Problem #4 Impaired Gait PT Goal 1 Goal / Goal Update 1. Patient will demonstrate ability to perform 50' ambulation with 2 wheeled walker and NWB R LE for short distance ambulation 02-15-25 progress goal met Target Visit 8 Progress Met PT Goal 2 Goal / Goal Update 02-15-25 NEW GOAL: 1* pt ambulate without R knee brace 2* pt ambulate with cane 3* 2 minute walking test distance with cane 200' 4* up/down 4 steps with cane, independently Target Visit 16
--- NOTE | 2025-02-15 14:26 | PTOPPROG ---
Assessment and note entered by Marbella Ivey, PT Assessment Status Progress Diagnosis S82.141A ICD-10 Condition Codes (PT) Pain in right knee M25.561 Onset 12/12/24 Subjective Information saw the dr on Tuesday, x ray was good and can start putting weight on R leg and do not have to wear the brace all the time; have slept without the brace and it was OK; have been doing the exercises; Assessment PT Clinical Summary Elyse has received 8 PT sessions. New orders received for progression: progress gait to R WBAT and wean off brace as tolerated. With today's assessment: pain rating 0-2/10; self assessment with LE functional scale of 41% limitation in activity level; ROM of R knee 0-115 ' and ankle DF 0'; 2 minute walking test with wheeled walker, 50'; strength of R knee 4-/5; gait with decreased R hip and knee flexion, decreased heel strike/ flat foot pattern; education for HEP, gait and progression per orders . The goals were partially achieved. Continue PT treatment. Progression per new orders : wean off brace and increase to WBAT on R LE. Plan of Care Interventions Gait Training,Neuro Re-education,Therapeutic Activities,Therapeutic Exercise PT Services Indicated Yes Treatment Frequency and 1x/ week for 8 visits- 1x/week per pt request, due Duration to transportation issues These treatments will address the objective and functional deficits as defined above. The patient will be advanced safely and appropriately in order for the patient to progress towards his/her prior level of function. Additional exercises will be introduced and as well as a comprehensive home exercise program upon discharge, if needed, ?to ensure carryover of functional gains achieved in the clinic. This treatment plan has been reviewed and agreement upon by the patient.
== END 2025-03-31 23:59 | disposition home or self-care (01) ==
LOC: ANHPT 09:00
DX: S82.141A Displaced bicondylar fracture of right tibia, initial encounter for closed fracture (principal); S82.141D Displaced bicondylar fracture of right tibia, subsequent encounter for closed fracture with routine healing; S82.401D Unspecified fracture of shaft of right fibula, subsequent encounter for closed fracture with routine healing; S82.401A Unspecified fracture of shaft of right fibula, initial encounter for closed fracture
CPT/HCPCS: 97016; 97110; 97116; 97140; 97161; 97530

== ENCOUNTER 2025-04-26 10:00 | Outpatient (RCR) | payer MEDICARE, SELFPAY ==
--- NOTE | 2025-04-26 11:24 | OPREHPOC ---
Outpatient Therapy Plan of Care This is a Multidisciplinary Plan of Care that may contain components documented by all disciplines (PT, OT, and ST.) PT Problem 1 PT Problem #1 Knowledge Deficit PT Goal 1 Goal / Goal Update [place] with HEP 02-15-25 progress goal met continue to progress HEP and gait training 04-26-25 d/c goal met Target Visit 16 Progress Met PT Problem 2 PT Problem #2 Impaired Range of Motion PT Goal 1 Goal / Goal Update 1. Patient will achieve 120 degrees of right knee flexion ROM 2. Patient will achieve 10 degrees of right ankle dorsiflexion ROM to achieve terminal stance of gait 02-15-25 progress goals not met; knee flexion 115; and ankle DF 0' continue towards goals 04-26-25 d/c goal 1 met: #2 is 5' Target Visit 16 Progress Partially Met PT Problem 3 PT Problem #3 Impaired Strength PT Goal 1 Goal / Goal Update 1. Improve R knee extension strength to 5/5 to improve stability for weightbearing activity 2. Improve R knee flexion strength to 5/5 to improve knee stability with functional activity 02-15-25 progress goal not met, 4-/5 continue towards goals 04-26-25 d/c goal not met; improved to 4+/5 Target Visit 16 Progress Partially Met PT Problem 4 PT Problem #4 Impaired Gait PT Goal 1 Goal / Goal Update 1. Patient will demonstrate ability to perform 50' ambulation with 2 wheeled walker and NWB R LE for short distance ambulation 02-15-25 progress goal met Target Visit 8 Progress Met PT Goal 2 Goal / Goal Update 02-15-25 NEW GOAL: 1* pt ambulate without R knee brace 2* pt ambulate with cane 3* 2 minute walking test distance with cane 200' 04-26-25 d/c goals met 4* up/down 4 steps with cane, independently Target Visit 16 Progress Met
--- NOTE | 2025-04-26 11:24 | PTOPDC ---
Assessment and note entered by Marbella Ivey, PT Assessment Status Discharge Diagnosis S82.141A ICD-10 Condition Codes (PT) Pain in right knee M25.561 Onset 12/12/24 Subjective Information do not totally trust my R leg yet, limp and use the cane when going out; walking to the car is an uneven surface, so use the walker there; some soreness in R hamstring; knee is still stiff in the morning; doing all the exercises at home; saw surgeon earlier this week, infection is not totally cleared, so starting a new antibiotic; still using the tub seat for showering and using hand held shower head; always am careful, have a fear of falling again, it is always on my mind; feel like my speed of walking is slow and take more time to do things than it use to take; Reported Pain Level Pain Score Self Report Additional Pain Score Comments pain range in the past week 0-1/10; stiffness in knee; sore in hamstring- pulled muscle; no longer have any pain or issues with rolling in bed and changing positions; able to be up walking, standing for about 1 & 1/2 to 2 hours; Assessment PT Clinical Summary Elyse has received a total of 16 PT sessions. She has improved in all areas and with today's assessment: pain rating of 0-1/10; self assessment functional LE score of 48% limitation in activity level; reported standing/activity tolerance of 1 & 1/2 to 2 hours; L knee active ROM is 0-130' and ankle DF 5'; gross strength of R hip and knee 4+/5; single leg standing R 2 seconds, unstable; 2 minute walking test distance of 225' with cane; she is able to ambulate without a device; on stairs is independent with cane and single step pattern; education for HEP and gait training completed. She voices a concern and fear for falling. But has not had any falls. The goals were achieved, except ankle DF ROM and strength of R LE. Discharge PT. She is to continue with HEP, gait with cane in community and progress her activity as tolerated. Plan of Care PT Services Indicated No
--- NOTE | 2025-04-26 13:23 | PCPTNOTE ---
CORRECTION: error was made with calculation of LE functional scale self ratin02-15-25: score SHOULD have been 58% limitation, not 41%;
== END 2025-04-26 15:04 | disposition home or self-care (01) ==
LOC: ANHPT 10:00
DX: S82.141A Displaced bicondylar fracture of right tibia, initial encounter for closed fracture (principal); S82.141D Displaced bicondylar fracture of right tibia, subsequent encounter for closed fracture with routine healing; S82.401D Unspecified fracture of shaft of right fibula, subsequent encounter for closed fracture with routine healing; S82.401A Unspecified fracture of shaft of right fibula, initial encounter for closed fracture
CPT/HCPCS: 97110; 97116; 97530